=== PATIENT | female | born 1950 | race Caucasian/White ===

== ENCOUNTER → 2018-01-12 10:45 | Outpatient (CLI) | payer OTHER, SELFPAY ==
[2018-01-12 12:58] LABS: T4 Free Direct 0.87 ng/dL (0.76-1.46)
[2018-01-12 16:53] LABS: T3 Uptake 33 % (30-39); Thyroid Stim Hormone (TSH) 5.53 uIU/mL (0.358-3.74)
== END ==
PROVIDERS: Family Provider Family Medicine; PCP Family Medicine; Visit Provider Family Medicine
DX: E03.9 Hypothyroidism, unspecified (principal)
CPT/HCPCS: 36415; 83970; 84439; 84443; 84479; 84481

== ENCOUNTER → 2019-02-16 11:24 | Outpatient (CLI) | payer MEDICARE, SELFPAY ==
[2019-02-16 14:31] LABS: Anion Gap 8 (5-15); BUN 15 mg/dL (7-18); BUN/Creat Ratio 16.7 RATIO (10-20); Calcium,Total 9.5 mg/dL (8.5-10.1); Chloride 106 mmol/L (98-107); Cholesterol 235 mg/dL (200); EST Glomerular Filtration Rate 66 mL/min (>60); Est Glom Filt Rate - Afr Amer 80 mL/min (>60); Glucose 75 mg/dL (74-106); High Density Lipoprotein 57 mg/dL; Sodium Level 142 mmol/L (136-145); Thyroid Stim Hormone (TSH) 5.85 uIU/mL (0.358-3.74); Triglycerides 170 mg/dL; Very Low Density Lipoprotein 34 mg/dL (5-40)
== END ==
PROVIDERS: Family Provider Family Medicine; PCP Family Medicine; Referring Provider Family Medicine; Visit Provider Family Medicine
DX: I10 Essential (primary) hypertension (principal); E03.9 Hypothyroidism, unspecified
CPT/HCPCS: 36415; 80048; 80061; 84443

== ENCOUNTER → 2019-07-31 15:25 | Outpatient (CLI) | payer MEDICARE, SELFPAY ==
[2019-07-31 18:29] LABS: T4 Free Direct 2.07 ng/dL (0.76-1.46); Thyroid Stim Hormone (TSH) < 0.01 uIU/mL (0.358-3.74)
== END ==
PROVIDERS: Family Provider Family Medicine; PCP Family Medicine; Visit Provider Family Medicine
DX: E03.9 Hypothyroidism, unspecified (principal)
CPT/HCPCS: 36415; 84439; 84443

== ENCOUNTER → 2019-08-08 12:54 | Outpatient (CLI) | payer MEDICARE, SELFPAY ==
--- NOTE | 2019-08-08 13:01 | BD_ITS ---
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 COMPARISON: None. FINDINGS: Lumbar Spine (L1-L4): g/cm2 (1.020) / T-score (-1.5) / Z-score (0.1) Findings are suggestive of osteopenia with a low fracture risk. Left Femur Total: g/cm2 (0.897) / T-score (-0.9) / Z-score (0.5) Left Femoral Neck: g/cm2 (0.798) / T-score (-1.7) / Z-score (-0.1) Right Femur Total: g/cm2 (0.836) / T-score (-1.4) / Z-score (0.0) Right Femoral Neck: g/cm2 (0.734) / T-score (-2.2) / Z-score (-0.6) BD/Dexa Bone Density Study IMPRESSION: The patient is considered osteopenic as outlined below according to World [employer] Organization (WHO) criteria with a high fracture risk. Reference Information: The T-score is the number of standard deviations above or below the standard which is normal for young adults at their peak bone mineral density. The World Health Organization (WHO) interprets the T-scores as follows: Above -1 Normal bone density Between -1 and -2.5 Osteopenia Equal to / or below -2.5 Osteoporosis As a practical clinical guideline, osteopenia may be graded as follows: Mild -1 through -1.5 Moderate -1.6 through -2.0 Severe -2.1 through -2.4 The Z-score is the number of standard deviations above or below age-matched controls. A Z-score of less than -1.5 would be considered abnormal. References: 1. NIH Osteoporosis and Related Bone Diseases http://www.osteo.org 2. International Society for Clinical Densitometry http://www.iscd.org 3. National Osteoporosis Foundation http://www.nof.org Electronically Signed: Teto Zeng, at 15:22 EST , Service support ,
== END ==
PROVIDERS: Family Provider Family Medicine; PCP Family Medicine; Referring Provider Family Medicine; Visit Provider Family Medicine
DX: Z00.00 Encounter for general adult medical examination without abnormal findings (principal); Z78.0 Asymptomatic menopausal state
CPT/HCPCS: 77080

== ENCOUNTER → 2019-10-03 14:25 | Outpatient (CLI) | payer MEDICARE, SELFPAY ==
[2019-10-03 17:57] LABS: Vitamin D,25 Hydroxy 63.5 ng/mL
[2019-10-03 18:10] LABS: T4 Free Direct 2.06 ng/dL (0.76-1.46); Thyroid Stim Hormone (TSH) < 0.01 uIU/mL (0.358-3.74)
== END ==
PROVIDERS: PCP Family Medicine; Referring Provider Family Medicine; Visit Provider Family Medicine
DX: E55.9 Vitamin D deficiency, unspecified (principal); E03.9 Hypothyroidism, unspecified
CPT/HCPCS: 36415; 82306; 84439; 84443

== ENCOUNTER → 2019-11-15 14:16 | Outpatient (CLI) | payer MEDICARE, SELFPAY ==
[2019-11-15 16:06] LABS: T4 Free Direct 1.04 ng/dL (0.76-1.46); Thyroid Stim Hormone (TSH) 0.03 uIU/mL (0.358-3.74)
[2019-11-15 23:32] LABS: Vitamin D,25 Hydroxy 48.5 ng/mL
[2019-11-18 00:54] LABS: Anti-Thyroglobulin AB < 1.0 IU/mL (0.0-0.9)
== END ==
PROVIDERS: PCP Family Medicine; Referring Provider Family Medicine; Visit Provider Family Medicine
DX: E03.9 Hypothyroidism, unspecified (principal); E55.9 Vitamin D deficiency, unspecified
CPT/HCPCS: 36415; 82306; 84432; 84439; 84443; 86800

== ENCOUNTER → 2020-01-24 14:08 | Outpatient (CLI) | payer MEDICARE, SELFPAY ==
[2020-01-24 16:17] LABS: Free T3 2.2 pg/mL (2.18-3.98); T4 Free Direct 0.94 ng/dL (0.76-1.46)
[2020-01-27 07:57] LABS: Anti-Thyroglobulin AB < 1.0 IU/mL (0.0-0.9); Thyroglobulin, Serum Qt. 14.6 ng/mL (1.5-38.5)
== END ==
PROVIDERS: PCP Family Medicine; Referring Provider Family Medicine; Visit Provider Family Medicine
DX: E03.9 Hypothyroidism, unspecified (principal)
CPT/HCPCS: 36415; 84432; 84439; 84443; 84481; 86800

== ENCOUNTER → 2020-09-20 09:58 | Outpatient (CLI) | payer MEDICARE, SELFPAY ==
[2020-09-17 14:02] VITALS: BMI 29.3
[2020-09-20 13:40] LABS: ALB/GLOB Ratio 1.3 RATIO (0.9-2.4); AST(SGOT) 20 U/L (15-37); Alanine Aminotransfer ALT/SGPT 27 U/L (13-56); Albumin, Serum 4.2 g/dL (3.2-5.0); Alkaline Phosphatase 71 U/L (45-117); Anion Gap 7 (5-15); BUN 19 mg/dL (7-18); BUN/Creat Ratio 21.2 RATIO (10-20); Calcium,Total 9.3 mg/dL (8.5-10.1); Chloride 108 mmol/L (98-107); Cholesterol 212 mg/dL (200); EST Glomerular Filtration Rate 66 mL/min (>60); Est Glom Filt Rate - Afr Amer 80 mL/min (>60); Free T3 2.5 pg/mL (2.18-3.98); Globulin 3.3 g/dL (2.2-4.2); Glucose 81 mg/dL (74-106); High Density Lipoprotein 67 mg/dL; Potassium 4.1 mmol/L (3.5-5.1); Protein, Total 7.5 g/dL (6.4-8.2); Sodium Level 143 mmol/L (136-145); T4 Free Direct 0.91 ng/dL (0.76-1.46); Triglycerides 123 mg/dL; Very Low Density Lipoprotein 25 mg/dL (5-40)
[2020-09-20 14:34] LABS: Vitamin D,25 Hydroxy 38.3 ng/mL
== END ==
PROVIDERS: PCP Family Medicine; Referring Provider Family Medicine; Visit Provider Family Medicine
DX: E78.00 Pure hypercholesterolemia, unspecified (principal); M85.80 Other specified disorders of bone density and structure, unspecified site; E03.9 Hypothyroidism, unspecified
CPT/HCPCS: 80053; 80061; 82306; 84439; 84443; 84481

== ENCOUNTER → 2021-02-20 15:49 | Outpatient (CLI) | payer MEDICARE, SELFPAY ==
[2021-02-20 18:32] LABS: T4 Free Direct 0.95 ng/dL (0.76-1.46)
== END ==
PROVIDERS: PCP Family Medicine; Referring Provider Family Medicine; Visit Provider Family Medicine
DX: E03.9 Hypothyroidism, unspecified (principal)
CPT/HCPCS: 36415; 84439; 84443

== ENCOUNTER → 2021-07-21 15:07 | Outpatient (CLI) | payer MEDICARE, SELFPAY ==
[2021-07-21 18:20] LABS: T4 Free Direct 0.98 ng/dL (0.76-1.46); Thyroid Stim Hormone (TSH) 3.66 uIU/mL (0.358-3.74)
== END ==
PROVIDERS: PCP Family Medicine; Visit Provider Family Medicine
DX: E03.9 Hypothyroidism, unspecified (principal)
CPT/HCPCS: 36415; 84439; 84443

== ENCOUNTER → 2022-01-22 | Outpatient (CLI) | payer MEDICARE, SELFPAY ==
[2022-01-22 13:01] LABS: Microalbumin,Random Urine < 5.0 mg/L (NO RANGE EST.)
[2022-01-22 13:07] LABS: Vitamin D,25 Hydroxy 47.7 ng/mL
[2022-01-22 13:23] LABS: ALB/GLOB Ratio 1.2 RATIO (0.9-2.4); AST(SGOT) 19 U/L (15-37); Alanine Aminotransfer ALT/SGPT 21 U/L (13-56); Albumin, Serum 4.4 g/dL (3.2-5.0); Alkaline Phosphatase 74 U/L (45-117); Anion Gap 9 (5-15); BUN 19 mg/dL (7-18); Calcium,Total 9.7 mg/dL (8.5-10.1); Chloride 105 mmol/L (98-107); Cholesterol 246 mg/dL (200); Creatinine, Serum 0.86 mg/dL (0.55-1.02); EST Glomerular Filtration Rate 69 mL/min (>60); Est Glom Filt Rate - Afr Amer 83 mL/min (>60); Globulin 3.6 g/dL (2.2-4.2); Glucose 88 mg/dL (74-106); High Density Lipoprotein 64 mg/dL; Sodium Level 141 mmol/L (136-145); T4 Free Direct 1.01 ng/dL (0.76-1.46); Thyroid Stim Hormone (TSH) 3.82 uIU/mL (0.358-3.74); Triglycerides 178 mg/dL; Very Low Density Lipoprotein 36 mg/dL (5-40)
== END | disposition home or self-care (01) ==
LOC: MFPLAB 10:26
PROVIDERS: PCP Family Medicine; Visit Provider Family Medicine
DX: I10 Essential (primary) hypertension (principal); E78.00 Pure hypercholesterolemia, unspecified; E03.9 Hypothyroidism, unspecified; M85.80 Other specified disorders of bone density and structure, unspecified site
CPT/HCPCS: 36415; 80053; 80061; 82043; 82306; 84439; 84443

== ENCOUNTER → 2022-10-06 | Outpatient (CLI) | payer MEDICARE, SELFPAY ==
--- NOTE | 2022-10-06 12:31 | BD_ITS ---
STUDY: DUAL ENERGY X-RAY ABSORPTIOMETRY / DXA REASON FOR EXAM: Female, 72 years old. [id number] TECHNIQUE: Bone Mineral Density (BMD) measurements of lumbar spine and bilateral hips were obtained. COMPARISON: Comparison is made with prior study dated August 08, 2019. FINDINGS: Lumbar Spine (L1-L4): g/cm2 (0.857) / T-score (-1.5) / Z-score (0.7) Findings are suggestive of osteopenia with a low fracture risk. Left Femur Total: g/cm2 (0.802) / T-score (-1.1) / Z-score (0.4) Left Femoral Neck: g/cm2 (0.674) / T-score (-1.6) / Z-score (0.3) Right Femur Total: g/cm2 (0.730) / T-score (-1.7) / Z-score (-0.2) Right Femoral Neck: g/cm2 (0.621) / T-score (-2.0) / Z-score (-0.2) The T-Scores on the most recent prior examination were: Lumbar Spine (L1-L4): There has been improvement of bone density since the previous examination. Left Femur Total: which represents a worsening of 3.7%. Right Femur Total: which represents a worsening of 5.8%. BD/Dexa Bone Density Study IMPRESSION: The patient is considered osteopenic as outlined below according to World Raymond Organization (WHO) criteria with a moderate fracture risk. There has been worsening of bone density since the previous examination. Reference Information: The T-score is the number of standard deviations above or below the standard which is normal for young adults at their peak bone mineral density. The World Health Organization (WHO) interprets the T-scores as follows: Above -1 Normal bone density Between -1 and -2.5 Osteopenia Equal to / or below -2.5 Osteoporosis As a practical clinical guideline, osteopenia may be graded as follows: Mild -1 through -1.5 Moderate -1.6 through -2.0 Severe -2.1 through -2.4 The Z-score is the number of standard deviations above or below age-matched controls. A Z-score of less than -1.5 would be considered abnormal. References: 1. NIH Osteoporosis and Related Bone Diseases www osteo.org 2. International Society for Clinical Densitometry www iscd.org 3. National Osteoporosis Foundation www nof.org Electronically Signed: Teto Zeng MD at 10:52 EDT ,
== END | disposition home or self-care (01) ==
LOC: OPBD 12:22
PROVIDERS: PCP Family Medicine; Referring Provider Family Medicine; Visit Provider Family Medicine
DX: Z78.0 Asymptomatic menopausal state (principal)
CPT/HCPCS: 77080

== ENCOUNTER → 2023-03-23 | Outpatient (CLI) | payer MEDICARE, SELFPAY | END | disposition home or self-care (01) | LOC: MFPLAB 12:01 | PROVIDERS: PCP Family Medicine; Visit Provider Family Medicine | DX: E55.9 Vitamin D deficiency, unspecified (principal) | CPT/HCPCS: 36415; 82306 ==

== ENCOUNTER → 2023-05-10 | Outpatient (CLI) | payer MEDICARE, SELFPAY ==
--- NOTE | 2023-05-10 11:15 | RAD_ITS ---
STUDY: X-RAY - RIGHT KNEE REASON FOR EXAM: Female, 72 years old. Pain. TECHNIQUE: 4 views of the right knee. COMPARISON: None. FINDINGS: Normal visualized distal femur. Normal visualized proximal tibia and fibula. Normal proximal tibiofibular articulation. There is no demonstrated fracture. There is severe degenerative arthrosis of the medial femorotibial compartment with severe joint space narrowing. There is mild degenerative arthrosis of the lateral femorotibial compartment. There is mild degenerative arthrosis of the patellofemoral articulation. There is a moderate volume joint effusion. The soft tissue structures are unremarkable. RAD/Knee 4 or More Views IMPRESSION: Tricompartment degenerative arthrosis, most severe in the medial femorotibial compartment. Moderate joint effusion. No demonstrated fracture. Electronically Signed: Franco Arriola MD at 15:28 EDT ,
== END | disposition home or self-care (01) ==
PROVIDERS: PCP Family Medicine; Referring Provider Family Medicine; Visit Provider Family Medicine
DX: M25.561 Pain in right knee (principal)
CPT/HCPCS: 73564

== ENCOUNTER → 2024-04-11 | Outpatient (CLI) | payer MEDICARE, SELFPAY ==
[2024-04-11 15:41] LABS: Vitamin D,25 Hydroxy 50.8 ng/mL
[2024-04-11 15:58] LABS: ALB/GLOB Ratio 1.1 RATIO (0.9-2.4); AST(SGOT) 17 U/L (15-37); Alanine Aminotransfer ALT/SGPT 20 U/L (13-56); Alkaline Phosphatase 66 U/L (45-117); Anion Gap 6 (5-15); BUN 18 mg/dL (7-18); BUN/Creat Ratio 20.3 RATIO (10-20); Chloride 105 mmol/L (98-107); Cholesterol 244 mg/dL (200); Creatinine, Serum 0.88 mg/dL (0.55-1.02); EST Glomerular Filtration Rate 67 mL/min (>60); Est Glom Filt Rate - Afr Amer 81 mL/min (>60); Globulin 3.6 g/dL (2.2-4.2); Glucose 86 mg/dL (74-106); High Density Lipoprotein 66 mg/dL; Potassium 4.2 mmol/L (3.5-5.1); Protein, Total 7.6 g/dL (6.4-8.2); Sodium Level 140 mmol/L (136-145); T4 Free Direct 1.13 ng/dL (0.76-1.46); Triglycerides 196 mg/dL; Very Low Density Lipoprotein 39 mg/dL (5-40)
== END | disposition home or self-care (01) ==
LOC: MFPLAB 11:03
PROVIDERS: PCP Family Medicine; Visit Provider Family Medicine
DX: I10 Essential (primary) hypertension (principal); E03.9 Hypothyroidism, unspecified; M85.80 Other specified disorders of bone density and structure, unspecified site
CPT/HCPCS: 36415; 80053; 80061; 82306; 84439; 84443

== ENCOUNTER → 2024-09-21 | Outpatient (CLI) | payer MEDICARE, SELFPAY ==
[2024-09-21 13:58] LABS: Anion Gap 12 (5-15); BUN 20 mg/dL (4-19); BUN/Creat Ratio 24.6 RATIO (10-20); Calcium 10.2 mg/dL (7.6-11.0); Carbon Dioxide 26.9 mmol/L (22.0-29.0); Chloride 100 mmol/L (96-108); Creatinine, Serum 0.8 mg/dL (0.6-1.0); EST Glomerular Filtration Rate 78 (>60); Glucose 84 mg/dL (70-99); Potassium 3.6 mmol/L (3.3-5.1); Sodium Level 139 mmol/L (133-145)
[2024-09-21 20:52] LABS: Cholesterol 241 mg/dL (<=200); High Density Lipoprotein 67 mg/dL; Low Density Lipoprotein Calc. 145 mg/dL; Triglycerides 148 mg/dL; Very Low Density Lipoprotein 30 mg/dL (5-40); cholesterol:hdl ratio screen 3.61
== END | disposition home or self-care (01) ==
PROVIDERS: PCP Family Medicine; Referring Provider Family Medicine; Visit Provider Family Medicine
DX: Z00.00 Encounter for general adult medical examination without abnormal findings (principal); Z13.6 Encounter for screening for cardiovascular disorders; E03.9 Hypothyroidism, unspecified
CPT/HCPCS: 36415; 80048; 80061; 84443

== ENCOUNTER → 2025-05-02 | Outpatient (CLI) | payer MEDICARE, SELFPAY ==
--- NOTE | 2025-05-02 14:42 | US_ITS ---
PROCEDURE: PELVIC W/ TRANSVAGINAL REASON FOR EXAM: CYSTOCELE TECHNIQUE: Procedure Code: [id number] Modality: US Procedure: PELVIC W/ TRANSVAGINAL COMPARISON: None FINDINGS: Patient is postmenopausal. Measurements: Uterus: 7.1 cm x 5.3 cm x 2.2 cm with a volume of 44.7 mL Endometrial Thickness: 5 mm. This is thickened for the postmenopausal state. Small amount of fluid is seen within the endometrium. There are 2, small uterine fibroids. Right Ovary: 1.8 cm x 2.1 cm x 1.2 cm with a volume of 4.4 mL. Left Ovary: Not visualized. TRANSABDOMINAL: Uterus: Fibroid uterus. Nabothian cysts. Endometrium: Endometrium is thickened measuring 5 mm. Right ovary: Normal size and echotexture. Left ovary: Not visualized. Other: No large pelvic mass identified. Transvaginal sonography was performed to better visualize the endometrium. TRANSVAGINAL: Uterus: Anteverted. Fibroid uterus. Endometrium: The endometrium is thickened measuring 5 mm. Fluid is seen within the endometrium. Right ovary: Normal size and echotexture. Left ovary: Not visualized. Other adnexal findings: None. Cul-de-sac: No free intraperitoneal fluid identified. Tenderness: No tenderness US/Pelvic w/ Transvaginal IMPRESSION: Endometrial thickening. Fibroid uterus. Reading Location: [place] [id number]
== END | disposition home or self-care (01) ==
PROVIDERS: PCP Family Medicine; Referring Provider Obstetrics & Gynecology; Visit Provider Obstetrics & Gynecology
DX: N81.2 Incomplete uterovaginal prolapse (principal)
CPT/HCPCS: 76830; 76856

== ENCOUNTER → 2025-05-09 | Outpatient (CLI) | payer MEDICARE, SELFPAY ==
--- NOTE | 2025-05-09 | EMB_PTH ---
PATIENT: MERLYN LOWE LOC: [facility] U#:[id number] AGE/SX: 74/F ROOM: RE05/09/[address]: VIBHA Calderon : 1950 BED: DIS: 05/09/2025 SPEC #: [id number] RECD: 05/09/25 15:16 STATUS: HUMPHREY REMarlo #: [id number] KAREN: 05/09/25 00:[address]: Carli Wayne NP DEPT: SURGICAL PATHOLOGY RECD BY: Jak Kelsey ENTERED: 05/09/25 15:17 SP TYPE: ENDOM BX/C CHANTAL DR: Dr. Luke Navarro MD Tissues: A - Endometrium, NOS Procedures: Surgery Specimen Level IV HEADER OPERATION: Endometrial biopsy PRE-OP DIAGNOSIS: Thickened endometrium TISSUE SUBMITTED: A- Endometrial tissue MICROSCOPIC DIAGNOSIS A. Endometrium, biopsy: * Strips of benign columnar epithelium consistent with endometrial and/or endocervical origin. * Atrophic squamous epithelium. * See note. Note: No endometrial stroma is observed in this section. The findings are consistent with atrophy. The pre-op diagnosis of "thickened endometrium" is noted. Clinical correlation is necessary to assess the adequacy of this sampling. MICROSCOPIC DESCRIPTION Slides are reviewed. GROSS DESCRIPTION A. Received in formalin labeled the patient's name and date of are scant flecks of free-floating tissue within the container which are entirely submitted in 1 cassette for cellblock preparation. CT 05/09/2025 CPT:01059
== END | disposition home or self-care (01) ==
LOC: LABSPEC 15:06
PROVIDERS: PCP Family Medicine; Visit Provider Nurse Practitioner Women's Health
DX: N85.8 Other specified noninflammatory disorders of uterus (principal)
CPT/HCPCS: 88305

== ENCOUNTER 2025-05-25 07:52 | Inpatient (IN) | payer MEDICARE, SELFPAY ==
[2025-05-21 09:45] LABS: Hematocrit 41.0 % (37-47); Hemoglobin 13.5 g/dL (12.0-15.0); Mean Corp Hgb Conc 32.9 g/dL (32-36); Mean Corpuscular Volume 93.6 fL (81-99); Mean Platelet Vol. 10.5 fl (6.2-12.0); Platelet Count 330 K/mm3 (150-450); RBC Distribution Width CV 13.7 % (11.6-14.6); RBC Distribution Width SD 46.9 fl (35.1-43.9); Red Blood Count 4.38 M/mm3 (4.2-5.4); White Blood Count 7.8 K/mm3 (4.4-11.0)
[2025-05-21 10:24] LABS: AST(SGOT) 20 U/L (<=31); Alanine Aminotransfer ALT/SGPT 19 U/L (<=34); Albumin, Serum 4.6 g/dL (3.4-4.8); Alkaline Phosphatase 66 U/L (35-104); Anion Gap 10 (5-15); BUN 18 mg/dL (4-19); BUN/Creat Ratio 22.4 RATIO (10-20); Calcium,Total 10.1 mg/dL (7.6-11.0); Carbon Dioxide 30.0 mmol/L (21.0-32.0); Chloride 103 mmol/L (98-108); Globulin 2.6 g/dL (2.2-4.2); Glucose 82 mg/dL (70-99); Potassium 4.2 mmol/L (3.3-5.1)
[2025-05-21 10:30] LABS: Magnesium 2.1 mg/dL (1.5-2.2)
--- NOTE | 2025-05-21 16:10 | PAT.ANE_ITS ---
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 When Was Last Pacemaker Check QUESTION #4 FULL TEXT: You/Your Family Experience fever (hyperthermia) with Anesthesia Last Oral Intake Last Oral intake: Last Oral Intake NPO since Meds taken in AM with sips of water? 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 Female Yes 05/14/25 13:27 HX of Motion Sickness No 05/14/25 13:27 HX of N/V After Surgery No 05/14/25 13:27 Non-Smoker Yes 05/14/25 13:27 Duration of Surgery greater Yes 05/14/25 13:27 than 60 minutes Number of Risk Factors 3 05/14/25 13:27 PONV Score Moderate Risk 05/14/25 13:27 Height & Weight Height & Weight: Anesthesia: Height & Weight Height 5 ft 1 in 04/26/25 13:08 Respiratory Assessment Respiratory Assessment - printing table worker: Respiratory Tract Infection Hx - printing table worker Hx Respiratory Tract Infection No 05/14/25 13:27 STOP Sleep Apnea STOP Sleep Apnea - printing table worker: STOP Sleep Apnea - printing table worker Hx Hypertension Yes 05/14/25 13:27 Hx Sleep Apnea No 05/14/25 13:27 CPAP BIPAP Do you snore loudly (louder Yes 05/14/25 13:27 than talking or can be heard Do you often feel tired/ No 05/14/25 13:27 fatigued/ sleepy during daytime? Has anyone observed you stop No 05/14/25 13:27 breathing during sleep? STOP Results Positive 05/14/25 13:27 QUESTION #5 FULL TEXT : Do you snore loudly (louder than talking or can be heard through closed doors)? 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 Specify any problems Hx of Preganancy in last 3 N/A 05/14/25 13:27 Months Nurse Filling Out Transfusion BLU 05/14/25 13:27 & Questions: Date: 05/14/25 05/14/25 13:27 Time: 13:30 05/14/25 13:27 Patient unable to answer at this time (ie. 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 worker: /Reproductive Hx- printing table worker Hx Now Gestational Age (in weeks): EDC: Hx Hx Para Hx Section SAB No 05/14/25 13:27 [facility] Medical History Wears glasses Heartburn Former smoker History of edema Constipation Stress incontinence Nocturia High cholesterol Hypertension Arthritis Allergies Pure hypercholesterolemia Vitamin D deficiency Osteopenia Hypothyroid Home Medications ?Medication ?Instructions ?Recorded ?Last Taken ?Type amlodipine 10 mg tablet (Norvasc) 10 mg PO DAILY 08/22 Unknown History cholecalciferol (vitamin D3) 125 125 mcg PO DAILY 07/27 03/15 Unknown History mcg (5,000 unit) capsule pravastatin 40 mg tablet 40 mg PO DAILY 08/22/20 Unkn own History ascorbate calcium (vitamin C) 500 500 mg PO DAILY 08/27 10/13 Unknown History mg tablet hydrochlorothiazide 12.5 mg tablet 25 mg PO DAILY SWEEvelyn CLEMENS 09/17/20 Unknown History levothyroxine 25 mcg capsule 50 mcg PO DAILY 01/25/23 Unknown History estradiol 0.01% (0.1 mg/gram) See Rx Instructions vagi nal 03/06/25 Unknown Rx vaginal cream .COMPLEX #42.5 grams calcium carbonate (Calcium 600) 600 mg PO QDAY 5 Unknown History Vitamin E 180 mg PO DAILY 04/26/25 Unk nown History coenzyme Q10 10 mg capsule (Co 10 mg PO QDAY 04/26/25 Unknown History Q-10) folate 800 mcg PO DAILY 04/26/25 Un known History Allergy/AdvReac Type Severity Reaction Status Date / Time Penicillins AdvReac Mild CAUSES Verified 05/16/25 08:36 YEAST INFECTIONS Family History Grandfather Tuberculosis Grandmother Cancer uterine Grandfather CVA (cerebral vascular accident) Grandmother Diabetes Enlarged heart Father Hypertension Heart disease TIA (transient ischemic attack) Mother Breast cancer Other Chronic kidney disease Surgical History History of tonsillectomy 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 Normal sinus rhythm. Left anterior fascicular block. Recommendation Anesthesia Recommendation Anesthesia recommendation: OPTIMIZED for anesthesia
[2025-05-25] VITALS (19 sets, daily range): BP systolic 95–131; BP diastolic 51–67; PULSE 56–77; RESP 16–18; TEMP 36.1–37.1; O2SAT 91–100; BMI 29.9
--- OUTSIDE RECORDS SUMMARY | 2025-05-25 05:29 | XMS RPT_ITS | CCD ---
Author Organization [facility] CliniSyri Care Team Providers Care Bone Tender Name Role Phone Dr. Jairo Navarro Primary Care Provider Dr. Jairo Navarro Referring Provider Rosana CANE FLUME WATCHER, CANE FLUME WATCHER-C Carli Attending Provider Melanie SHIELDS, Dr. Butler Primary Care Provider Melanie SHIELDS, Dr. Butler Attending Provider Melanie SHIELDS, Dr. Butler Referring Provider Melanie SHIELDS, Dr. Butler Primary Care Provider Melanie SHIELDS, Dr. Butler Referring Provider Rosana CANE FLUME WATCHER-CCarli Attending Provider [phone] Melanie SHIELDS, Dr. Butler Primary Care Physicia n Rosana CANE FLUME WATCHER-C, Carli Attending Physician [phone] Lin SHIELDS, Dr. Pagan Attending Physician Herrera SHIELDS, Dr. Osborne Attending Physician Herrera SHIELDS, Dr. Osborne Referring Provider Luke Navarro Primary Care Unavailable Luke Navarro Attending Unavailable Luke Navarro Referring Unavailable Rosana CANE FLUME WATCHERCarli Attending Unavailable Luke Navarro Primary Care Unavailable Luke Navarro Primary Care Unavailable India Silverman Attending Unavailable India Silverman Referring Unavailable Luke Navarro Primary Care Unavailable Latasha Ceballos Consulting Unavailable India Silverman Attending Unavailable India Silverman Referring Unavailable Luke Navarro Primary Care Unavailable Rosana Carli THIBODEAUX Attending Unavailable Javed Navarrotuan Referring Unavailable [facility] Primary [facility] Unavailable Latasha Ceballos Attending Unavailable [facility] Referring Unavailable [facility] Primary [facility] Unavailable India Silverman Attending Unavailable [facility] Referring Unavailable Latasha Ceballos Attending Unavailable [facility] Primary Care Unavailable [facility] Referring Unavailable Latasha Ceballos Attending Unavailable [facility] Unavailable [facility] Referring Unavailable [facility] Primary [facility] Unavailable Carli Wayne NP Attending Unavailable [facility] Referring Unavailable Ltaasha Ceballos Attending Unavailable [facility] Referring Unavailable [facility] Unavailable Allergies Allergy Classification Reported Allergen(s) Allergy Type Date of Onset Reaction(s) Facility (1 source) Penicillins Propensity to adverse reactions 5 CAUSES YEAST INFECTIONS [facility] (1 source) Penicillins Drug allergy (disorder) 5 [facility] Repository Medications Current Medications Medication Drug Class(es) Dates Sig (Normalized) Sig (Original) amLODIPine 10 mg oral tablet (11 sources) Dihydropyridine Calcium Channel Katelin Start: 08-22-2020 take 1 tablet by mouth once daily Amlodipine (Norvasc) 10 mg tablet Active 10 mg PO DAILY August 22, 2020 1:00am Complies with drug therapy calcium ascorbate 500 mg oral tablet (11 sources) Start: 09-17-2020 take 1 tablet by mouth once daily Ascorbate Calcium (Vitamin C) 500 mg tablet Active 500 mg PO DAILY September 17, 2020 1:00am Complies with drug therapy calcium carbonate 1500 mg oral tablet (5 sources) Start: 04-13-2025 take 1 tablet by mouth once daily Calcium Carbonate (Calcium 600) 600 mg calcium (1,500 mg) tablet Active 600 mg PO daily April 13, 2025 12:00am Complies with drug therapy cholecalciferol 0.125 mg oral capsule (11 sources) Vitamin D Start: 08-22-2020 take 1 capsule by mouth once daily Cholecalciferol (Vitamin D3) 125 mcg (5,000 unit) capsule Active 125 ug PO DAILY August 22, 2020 1:00am Complies with drug therapy folate (2 sources) Start: 04-26-2025 take 800 ug by mouth once daily folate Active 800 ug PO DAILY April 26, 2025 12:00am Complies with drug therapy Start: 04-26-2025 hydroCHLOROthiazide 12.5 mg oral tablet (20 sources) Thiazide Diuretic Start: 09-17-2020 take 2 tablets by mouth once daily Hydrochlorothiazide 12.5 mg tablet Active 25 mg PO DAILY September 17, 2020 3:00pm SWELLING Complies with drug therapy Start: 08-22-2020 End: 09-17-2020 take 1 tablet by mouth once daily Hydrochlorothiazide 12.5 mg tablet Discontinued 12.5 mg PO DAILY August 22, 2020 1:00am September 17, 2020 3:01pm levothyroxine sodium 0.025 mg oral capsule (9 sources) l-Thyroxine Start: 01-25-2023 take 2 capsules by mouth once daily Levothyroxine 25 mcg capsule Active 50 ug PO DAILY January 25, 2023 12:00am Complies with drug therapy Start: 01-25-2023 take 50 ug by mouth once daily Levothyroxine Active 50 MCG PO DAILY January 25, 2023 12:00am pravastatin sodium 40 mg oral tablet (11 sources) HMG-CoA Reductase Inhibitor Start: 08-22-2020 take 1 tablet by mouth once daily Pravastatin 40 mg tablet Active 40 mg PO DAILY August 22, 2020 1:00am Complies with drug therapy ubidecarenone 10 mg oral capsule (2 sources) Start: 04-26-2025 Coenzyme Q10 ( Co Q-10) 10 mg capsule Active 10 mg PO daily April 26, 2025 12:00am Complies with drug therapy vitamin e 180 mg oral tablet (2 sources) Start: 04-26-2025 take 180 mg by mouth once daily Vitamin E Active 180 mg PO DAILY April 26, 2025 12:00am Complies with drug therapy Start: 04-26-2025 Completed/Discontinued Medications Medication Drug Class(es) Dates Sig (Normalized) Sig (Original) cannabidiol 100 mg/ml oral solution (11 sources) Start: 08-22-2020 End: 09-17-2020 Cannabidiol 100 mg/mL solution Discontinued PO August 22, 2020 1:00am September 17, 2020 3:00pm Start: 08-22-2020 End: 09-17-2020 Cannabidiol Discontinued PO August 22, 2020 1:00am September 17, 2020 3:00pm estradiol 0.1 mg/ml vaginal cream (20 sources) Estrogen Start: 01-25-2023 End: 03-06-2025 Estradiol 0.01 % (0.1 mg/gram) cream Discontinued 0 VAGINAL .COMPLEX 42.5 2 March 02, 2024 1:16pm March 06, 2025 11:36am small amount as directed vaginal three times a week; Start: 01-25-2023 Estradiol Acti ve 0 VAGINAL .COMPLEX 42.5 January 25, 2023 1:31pm small amount as directed vaginal three times a week; Start: 09-17-2020 End: 01-25-2023 Estradiol 0.01 % (0.1 mg/gra m) cream Discontinued 0 VAGINAL .COMPLEX 42.5 2 September 17, 2020 1:00am January 25, 2023 1:32pm small amount as directed vaginal every other day X 4 weeks then twice a week; Start: 09-17-2020 End: 01-25-2023 Estradiol Discontinued 0 VAG INAL .COMPLEX 42.5 September 17, 2020 1:00am January 25, 2023 1:32pm small amount as directed vaginal every other day X 4 weeks then twice a week; Problems Problem Classification Problem Date Documented Da te Episodic/Chronic Genitourinary symptoms and ill-defined conditions (13 sources) Genuine stress incontinence; Translations: [Stress incontinence (female) (male)] Onset: 05-16-2025 04-23-2025 Chronic Genitourinary symptoms and ill-defined conditions (18 sources) Nocturia; Translations: [Nocturia] Onset: 04-23-2025 04-13-2025 Episodic Menopausal disorders (20 sources) Atrophic vaginitis; Translations: [Postmenopausal atrophic vaginitis] Onset: 04-13-2025 09-17-2020 Chronic Comment on above: estradiol cream 3 ni ghts a week Other diseases of bladder and urethra (20 sources) Urethral caruncle; Translations: [Urethral caruncle] 09-17-2020 Episodic Other diseases of bladder and urethra (3 sources) Urethral caruncle; Translations: [Urethral caruncle] Onset: 04-13-2025 01-25-2023 Episodic Other gastrointestinal disorders (12 sources) Constipation; Translations: [Constipation, unspecified] 04-23-2025 Episodic Other screening for suspected conditions (not mental disorders or infectious disease) (1 source) Abnormal findings on diagnostic imaging of other specified body structures; Translations: [Abnormal findings on diagnostic imaging of other specified body structures] Onset: 05-21-2025 Chronic Prolapse of female genital organs (20 sources) Cystocele co-occurrent with incomplete uterovaginal prolapse; Translations: [Incomplete uterovaginal prolapse] Onset: 05-21-2025 09-17-2020 Chronic Comment on above: stable worsening. at introi tus:plan surgical intervention SM and HW Results Test Name Value Interpretation Reference Range Facility CBC-Complete Blood Cnt No Di ffon 05-21-2025 Erythrocyte distribution width (RBC) [Ratio] 13.7 % Normal 11.6-14.6 [facility] Comment on above: Performed By: #### B TSPAT, L100.0500, L500.4050 #### [facility] [address] [place], [address] Hematocrit (Bld) [Volume fraction] 41.0 % Normal 37-47 [facility] Comment on above: Performed By: #### B TSPAT, L100.0500, L500.4050 #### [facility] [address] [place], [address] Hemoglobin (Bld) [Mass/Vol] 13.5 g/dL Normal 12.0-15.0 [facility] Comment on above: Performed By: #### B TSPAT, L100.0500, L500.4050 #### [facility] [address] [place], [address] MCH (RBC) [Entitic mass] 30.8 pg Normal 27.0-32.0 [facility] Comment on above: Performed By: #### B TSPAT, L100.0500, L500.4050 #### [facility] [address] [place], [address] MCHC (RBC) [Mass/Vol] 32.9 g/dL Normal 32-36 [facility] Comment on above: Performed By: #### B TSPAT, L100.0500, L500.4050 #### [facility] [address] [place], [address] MCV (RBC) [Entitic vol] 93.6 fL Normal 81-99 [facility] Comment on above: Performed By: #### B TSPAT, L100.0500, L500.4050 #### [facility] [address] [place], [address] Platelet mean volume (Bld) [Entitic vol] 10.5 fL Normal 6.2-12.0 [facility] Comment on above: Performed By: #### B TSPAT, L100.0500, L500.4050 #### [facility] [address] [place], [address] Platelets (Bld) [#/Vol] 330 10*3/uL Normal 150-450 [facility] Comment on above: Performed By: #### B TSPAT, L100.0500, L500.4050 #### [facility] [address] [place], [address] RBC (Bld) [#/Vol] 4.38 10*6/uL Normal 4.2-5.4 [facility] Comment on above: Performed By: #### B TSPAT, L100.0500, L500.4050 #### [facility] [address] [place], [address] RDW SD 46.9 fl High 35.1-43.9 [facility] Comment on above: Performed By: #### B TSPAT, L100.0500, L500.4050 #### [facility] [address] [place], [address] WBC (Bld) [#/Vol] 7.8 10*3/uL Normal 4.4-11.0 [facility] Comment on above: Performed By: #### B TSPAT, L100.0500, L500.4050 #### [facility] [address] [place], [address] [facility] Albumin [Mass/Vol] 4.6 g/dL Normal 3.4-4.8 [facility] Comment on above: Performed By: #### B TSPAT, L100.0500, L500.4050 #### [facility] [address] [place], [address] Albumin/Globulin [Mass ratio] 1.8 {ratio} Normal 0.9-2.4 [facility] Comment on above: Performed By: #### B TSPAT, L100.0500, L500.4050 #### [facility] [address] [place], [address] ALK PHOS 66 U/L Normal 35-104 [facility] Comment on above: Performed By: #### B TSPAT, L100.0500, L500.4050 #### [facility] [address] [place], [address] ALT [Catalytic activity/Vol] 19 U/L Normal <=34 [facility] Comment on above: Performed By: #### B TSPAT, L100.0500, L500.4050 #### [facility] [address] [place], [address] AST [Catalytic activity/Vol] 20 U/L Normal <=31 [facility] Comment on above: Performed By: #### B TSPAT, L100.0500, L500.4050 #### [facility] [address] [place], [address] Bilirubin [Mass/Vol] 0.58 mg/dL Normal 0.00-1.30 [facility] Comment on above: Performed By: #### B TSPAT, L100.0500, L500.4050 #### [facility] [address] [place], [address] BUN/CRE 22.4 RATIO High 10-20 [facility] Comment on above: Performed By: #### B TSPAT, L100.0500, L500.4050 #### [facility] [address] [place], [address] Calcium [Mass/Vol] 10.1 mg/dL Normal 7.6-11.0 [facility] Comment on above: Performed By: #### B TSPAT, L100.0500, L500.4050 #### [facility] [address] [place], [address] Chloride [Moles/Vol] 103 mmol/L Normal 98-108 [facility] Comment on above: Performed By: #### B TSPAT, L100.0500, L500.4050 #### [facility] [address] [place], [address] CO2 [Moles/Vol] 30.0 mmol/L Normal 21.0-32.0 [facility] Comment on above: Performed By: #### B TSPAT, L100.0500, L500.4050 #### [facility] [address] [place], [address] Creatinine [Mass/Vol] 0.80 mg/dL Normal 0.70-1.20 [facility] Comment on above: Performed By: #### B TSPAT, L100.0500, L500.4050 #### [facility] [address] [place], [address] GAP 10 Normal 5-15 [facility] Comment on above: Performed By: #### B TSPAT, L100.0500, L500.4050 #### [facility] [address] [place], [address] GFR/1.73 sq M.predicted among non-blacks MDRD (S/P/Bld) [Vol rate/Area] 77 mL/min/{1.73_m2} Normal >60 [facility] Comment on above: Result Comment: mL/m in/1.73m2 CKD-EPI Creatinine Equation (2020) Performed By: #### B TSPAT, L100.0500, L500.4050 #### [facility] [address], [address] Globulin (S) [Mass/Vol] 2.6 g/dL Normal 2.2-4.2 [facility] Comment on above: Performed By: #### Viviana TSPAT, L100.0500, L500.4050 #### [facility] [address] [place], [address] Glucose [Mass/Vol] 82 mg/dL Normal 70-99 [facility] Comment on above: Performed By: #### Viviana TSPAT, L100.0500, L500.4050 #### [facility] [address] [place], [address] Potassium [Moles/Vol] 4.2 mmol/L Normal 3.3-5.1 [facility] Comment on above: Performed By: #### Viviana TSPAT, L100.0500, L500.4050 #### [facility] [address] [place], [address] Sodium [Moles/Vol] 143 mmol/L Normal 133-145 [facility] Comment on above: Performed By: #### Viviana TSPAT, L100.0500, L500.4050 #### [facility] [address] [place], [address] T PROT 7.1 g/dL Normal 5.9-8.4 [facility] Comment on above: Performed By: #### Viviana TSPAT, L100.0500, L500.4050 #### [facility] [address], [address] Urea nitrogen [Mass/Vol] 18 mg/dL Normal 4-19 [facility] Comment on above: Performed By: #### B TSPAT, L100.0500, L500.4050 #### [facility] [address] [place], [address] MR/PAT.CHADon 05-21-2025 MR/PAT.CHAD [facility] Medical Records Department [address] [place] [address] PAT - Anesthesia 05/21/25 1610 MR#: [id number] Acct: [id number] Name: MERLYN LOWE Rep #: [id number] : 1950 74 From: Jhon Muller MD PCP: Dr. 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 When Was Last Pacemaker Check QUESTION #4 FULL TEXT: You/Your Family Experience fever (hyperthermia) with Anesthesia Last Oral Intake Last Oral intake: Last Oral Intake NPO since Meds taken in AM with sips of water? Meds patient instructed to take am of surgery PONV PONV - gamma facilities operator: PONV - gamma facilities operator Female Yes 05/14/25 13:27 HX of Motion Sickness No 05/14/25 13:27 HX of N/V After Surgery No 05/14/25 13:27 Non-Smoker Yes 05/14/25 13:27 Duration of Surgery greater Yes 05/14/25 13:27 than 60 minutes Number of Risk Factors 3 05/14/25 13:27 PONV Score Moderate Risk 05/14/25 13:27 Height Weight Height Weight: Anesthesia: Height Weight Height 5 ft 1 in 04/26/25 13:08 Respiratory Assessment Respiratory Assessment - gamma facilities operator: Respiratory Tract Infection Hx - gamma facilities operator Hx Respiratory Tract Infection No 05/14/25 13:27 STOP Sleep Apnea STOP Sleep Apnea - gamma facilities operator: STOP Sleep Apnea - gamma facilities operator Hx Hypertension Yes 05/14/25 13:27 Hx Sleep Apnea No 05/14/25 13:27 CPAP BIPAP Do you snore loudly (louder Yes 05/14/25 13:27 than talking or can be heard Do you often feel tired/ No 05/14/25 13:27 fatigued/ sleepy during daytime? Has anyone observed you stop No 05/14/25 13:27 breathing during sleep? STOP Results Positive 05/14/25 13:27 QUESTION #5 FULL TEXT : Do you snore loudly (louder than talking or can be heard through closed doors)? 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 Specify any problems Hx of Preganancy in last 3 N/A 05/14/25 13:27 Months Nurse Filling Out Transfusion MANDAOEIMANI 05/14/25 13:27 Questions: Date: 05/14/25 05/14/25 13:27 Time: 13:30 05/14/25 13:27 Patient unable to answer at this time (ie. confused, unrespo /Reproduction History /Reproductive History - gamma facilities operator: /Reproductive Hx- gamma facilities operator Hx Now Gestational Age (in weeks): EDC: Hx Hx Para Hx Section SAB No 05/14/25 13:27 [facility] Medical History Wears glasses Heartburn Former smoker History of edema Constipation Stress incontinence Nocturia High cholesterol Hypertension Arthritis Allergies Pure hypercholesterolemia Vitamin D deficiency Osteopenia Hypothyroid Home Medications ???Medication ???Instructions ???Recorded ???Last Taken ???Type amlodipine 10 mg tablet (Norvasc) 10 mg PO DAILY 08/22/20 Unknown H istory cholecalciferol (vitamin D3) 125 125 mcg PO DAILY 08/22/20 Unknown History mcg (5,000 unit) capsule pravastatin 40 mg tablet 40 mg PO DAILY 08/22/20 Unknown Hi story ascorbate calcium (vitamin C) 500 500 mg PO DAILY 09/17/20 Unknown History mg tablet hydrochlorothiazide 12.5 mg tablet 25 mg PO DAILY SWELLING 09/17/20 Unknown History (more content not included)... Normal [facility] Magnesiumon 05-21-2025 Magnesium [Mass/Vol] 2.1 mg/dL Normal 1.5-2.2 [facility] Comment on above: Performed By: #### L 501.9520, L501.5200 #### [facility] [address] [place], [place], [address] Thyroid Stim Hormone (TSH)on 05-21-2025 TSH 3.180 uIU/mL Normal 0.300-4.200 [facility] Comment on above: Performed By: #### L 501.9520, L501.5200 #### [facility] [address] [place], [address] Type AND Screen - PAT ONLYon 05-21-2025 Ab SCREEN GEL Negative Normal [facility] Comment on above: Order Comment: Reaso n for Laboratory Test PRE-OP [id number] No N N S TOTAL VAGINAL HYSTERECTOMY Performed By: #### B TSPAT, L100.0500, L500.4050 #### [facility] [address] [place], [address] ABO and Rh group Nom (Bld) Blood group O Rh(D) positive Normal [facility] Comment on above: Order Comment: Reaso n for Laboratory Test PRE-OP 20250525 No N N S TOTAL VAGINAL HYSTERECTOMY Performed By: #### B TSPAT, L100.0500, L500.4050 #### [facility] [address], [address] Laboratory - Chemistry and C hemistry - challengeOrdered By: Latasha Ceballos on 05-16-2025 Bilirubin Ql (U) Negative [facility] Glucose Ql (U) Negative [facility] Ketones Ql (U) Negative [facility] pH (U) 7 [pH] [facility] Specific gravity (U) [Rel density] 1.010 [facility] Urobilinogen (U) [Mass/Vol] 0.1406451 mg/dL [facility] - Hematology and Cell countsOrdered By: Latasha Ceballos on 05-16-2025 Hemoglobin Ql (U) Negative [facility] - UrinalysisOrder ed By: Latasha Ceballos on 05-16-2025 Nitrite Ql (U) Negative [facility] Protein Ql (U) Negative [facility] MR/Clint 05-16-2025 /THUY [facility] [address], [address] [place] [address] OFFICE VISIT Date of Service: 05/16/25 MR#: [id number] Acct: [id number] Name: MERLYN LOWE Rep #: [id number] : 1950 Provider: Dr. 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 Required: No Accompanied by: self Is patient in pain?: No Allergies Penicillins Adverse Reaction (Mild, Verified 05/16/25 08:36) CAUSES YEAST INFECTIONS Medications ???Medication ???Instructions ???Recorded ???Confirmed ???Type amlodipine 10 mg tablet (Norvasc) 10 mg PO DAILY 08/22/20 05/16/25 History cholecalciferol (vitamin D3) 125 125 mcg PO DAILY 08/22/20 05/16/25 History mcg (5,000 unit) capsule pravastatin 40 mg tablet 40 mg PO DAILY 08/22/20 05/16/25 H istory ascorbate calcium (vitamin C) 500 500 mg PO DAILY 09/17/20 05/16/25 History mg tablet hydrochlorothiazide 12.5 mg tablet 25 mg PO DAILY SWELLING 09/17/20 05/16/25 History levothyroxine 25 mcg capsule 50 mcg PO DAILY 01/25/23 05/16/25 History estradiol 0.01% (0.1 mg/gram) See Rx Instructions vaginal 05/16/25 Rx vaginal cream .COMPLEX #42.5 grams calcium carbonate (Calcium 600) 600 mg PO QDAY 04/13/25 05/16/25 H istory Vitamin E 180 mg PO DAILY 04/26/25 05/16/25 History coenzyme Q10 10 mg capsule (Co 10 mg PO QDAY 04/26/25 05/16/25 Hi story Q-10) folate 800 mcg PO DAILY 04/26/25 05/16/25 History Have you fallen in the past year?: No Nurse's Note: Patient reports she is well today, with no sx of infection. 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 Urology Chief Complaint: preoperation visit with urine a consent Details: MERLYN LOWE, is a 74 F. The patient is here for preoperative history and physical prior to anterior repair, possible posterior repair, possible bilateral sacrospinous ligament fixation with dermis, mid urethral sling, cystoscopy with bilateral ureteral catheterization. There are no new symptoms since the last visit. The procedure, recovery and expectations were explained. The risks, benefits and alternatives were discussed, including but not limited to, the risks of anesthesia, bleeding, infection, injury, pain and the need for further intervention. We have discussed the risk of exposure to and/or potential harm posed by the COVID-19 virus with having a surgery/procedure at this time. A joint decision was made at this time to proceed with the scheduled surgery/procedure as indicated on the consent form. ROS Const Constitutional: No chills, fatigue, fever(s), headache(s), night sweats, weakness, weight change, abnormal sleep pattern or change in appetite Eyes Eyes: No change in vision ENT ENT: No headache(s) or dry mouth Resp Respiratory: No cough, chest congestion, shortness of breath or wheezing Cardio Cardiology: Positive for other (No chest pain.); No shortness of breath, irregular heart rhythm or lightheadedness Gastro GI: Positive for other (No nausea.); No abdominal pain, change in bowel habits, constipation, diarrhea or vomiting Musc Musculoskeletal: No abnormal gait Skin Skin: No yellowing of the eye, lesions, itchy eyes, rash or skin ulcer Neuro Neurology: No abnormal gait, confusion, dizziness, weakness, headache(s) or memory loss Psych Psychiatric: No abnormal sleep pattern, No change in appetite, No confusion and No memory loss Endo Endocrine: No fatigue, increased thirst/drinking or weight change Aller/Imm Allergy/Immunologic: No itch (more content not included)... Normal [facility] No Panel InformationOrdered By: Latasha Ceballos on 05-16-2025 Urine Leukocytes Negatve [facility] Urine Non-Hemolyzed Blood Negative [facility] Drum Puller Office Visit Reporton 05-09-2025 Drum Puller Office Visit Report [facility] [address], [address] [place] [address] OFFICE VISIT Date of Service: 05/09/25 MR#: [id number] Acct: [id number] Name: MERLYN LOWE Rep #: [id number] : 1950 Provider: VIBHA aguero Age/Sex: 74/F Location: [facility] [place] Status: Signed Intake Vital Signs 04/26/25 13:08 05/09/25 12:59 05/09/25 13:03 Height 5 ft 1 in 5 ft 1 in 5 ft 1 in Weight: 159 lb 156 lb 6 oz BMI 30.0 29.5 BP 145/66 H 129/80 H Intake Visit Reasons: EMB prior to surgery 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 Required: No Is patient in pain?: No Allergies No Known Allergies Allergy (Verified 05/09/25 13:06) Medications ???Medication ???Instructions ???Recorded ???Confirmed ???Type amlodipine 10 mg tablet (Norvasc) 10 mg PO DAILY 08/22/20 05/09/25 History cholecalciferol (vitamin D3) 125 125 mcg PO DAILY 08/22/20 05/09/25 History mcg (5,000 unit) capsule pravastatin 40 mg tablet 40 mg PO DAILY 08/22/20 05/09/25 H istory ascorbate calcium (vitamin C) 500 500 mg PO DAILY 09/17/20 05/09/25 History mg tablet hydrochlorothiazide 12.5 mg tablet 12.5 mg PO DAILY PRN 09/17/20 History levothyroxine 25 mcg capsule 50 mcg PO DAILY 01/25/23 05/09/25 History estradiol 0.01% (0.1 mg/gram) See Rx Instructions vaginal 05/09/25 Rx vaginal cream .COMPLEX #42.5 grams calcium carbonate (Calcium 600) 600 mg PO QDAY 04/13/25 05/09/25 H istory Vitamin E PO 04/26/25 05/09/25 History coenzyme Q10 10 mg capsule (Co 10 mg PO QDAY 04/26/25 05/09/25 Hi story Q-10) folate PO 04/26/25 05/09/25 History Is last menstrual period known: No Post menopausal: Yes Patient : No : No PFSH PFSH Medical History Constipation Stress incontinence Nocturia High cholesterol Hypertension Arthritis Allergies Pure hypercholesterolemia Vitamin D deficiency Osteopenia Hypothyroid Surgical History History of tonsillectomy Family History Grandfather Tuberculosis Grandmother Cancer uterine Grandfather CVA (cerebral vascular accident) Grandmother Diabetes Enlarged heart Father Hypertension Heart disease TIA (transient ischemic attack) Mother Breast cancer Other Chronic kidney disease 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 Smoking Status: Former smoker alcohol intake: current alcohol intake frequency: holidays/special occasions only substance use type: does not use seatbelt use: always additional social history: - Alber History 2 Elective abortions Hx Para 2 Spontaneous abortions Hx # Term Pregnancies Ectopic pregnancies Hx # Pregnancies Multiple births # of living children 2 HPI EMB prior to surgery Details: MERLYN LOWE is a 74 year old who presents for EMB prior to hysterectomy Exam Const General: cooperative and no acute distress Nutritional Appearance: well nourished Orientation: oriented x3 External Female Exam: normal external appearance Speculum Exam - Vagina: vagina atrophic Bimanual Exam- Vagina Uterus: uterine size normal and non-tender Bimanual Exam- Adnexa, other: normal adnexae, no masses and non-tender Pelvic Support: other (stable prolapse) Office Procedures Endometrial Biopsy Endometrial Biopsy Test: Yes Not Applicable Consent Signed: Yes Time out checklist: patient, procedure, site marked/identified, positioning of patient, supplies available, allergies confirmed and team agrees on procedure Time out time: 13:05 tenaculum used: Yes dilator used: No Details: Cervix prepped with betadine and syringe pipelle inserted 7 cm into uterus without complication. Minimal specimen obtained and sent to lab for analysis. All instruments removed from vagina without complications. Excellent hemostasis noted. Coding Level of Care Code Attention Home Economist Consumer Service Diagnoses Cystocele with incomplete uterovaginal prolapse N81.2 Urethral caruncle N36.2 Atrophic vaginitis N95.2 CPT Codes Endometrial Biopsy (37269) Assessment and Plan Assessment and Plan (1) Cystocele with incomplete uterovaginal prolapse: Status: Acute (2) Urethral caruncle: Status: Acute (3) Atrophic vaginitis: Status: Acute Comment: estradiol cream 3 nights a week Orders: Orders Endometrial Biopsy Today R93.89 - Abnormal findings on diagnostic imaging of other specified body structures Plan reviewed S S infection. Notify of pathology 05/09/25 1322 Date Carli Crespo (more content not included)... Normal [facility] Surgery Specimen Level Kim 05-09-2025 Surgery Specimen Level IV Patient Age/Sex Location Account Attending Physician MERLYN LOWE 74/F LABSPEC [id number] VIBHA Calderon Specimen: [id number] Received: 05/09/25 Status: HUMPHREY Morelos Num: [id number] Spec Type: FRANCESCA BX/C Subm Dr: Carli Wayne, DANIELAC HEADER OPERATION: Endometrial biopsy PRE-OP DIAGNOSIS: Thickened endometrium TISSUE SUBMITTED: A- Endometrial tissue MICROSCOPIC DIAGNOSIS A. Endometrium, biopsy: * Strips of benign columnar epithelium consistent with endometrial and/or endocervical origin. * Atrophic squamous epithelium. * See note. Note: No endometrial stroma is observed in this section. The findings are consistent with atrophy. The pre-op diagnosis of thickened endometrium is noted. Clinical correlation is necessary to assess the adequacy of this sampling. MICROSCOPIC DESCRIPTION Slides are reviewed. GROSS DESCRIPTION A. Received in formalin labeled the patient's name and date of are scant flecks of free-floating tissue within the container which are entirely submitted in 1 cassette for cellblock preparation. ME 05/09/2025 CPT:77145 Patient Age/Sex Location Account Attending Physician MERLYN LOWE 74/F LABSPEC [id number] VIBHA Calderon Signed (signature on file) Dr. Adelaida eKlley MD 05/17/25 1111 Normal [facility] Comment on above: Performed By: #### P SUIV ####[facility] [id number] [facility]. [place], [place], [address] Pelvic w/ Transvaginalon Pelvic w/ Transvaginal [facility] Imaging Services [address] [place], [place] [address] Pelvic w/ Transvaginal MR#: [id number] Acct: [id number] Name: MERLYN LOWE Rep #: [id number] : 1950 F 74 From: Teto westbrook MD PCP: Dr. Luke Navarro MD Status: [facility] Study: Pelvic w/ Transvaginal Date of Exam: 05/02/25 Exam# [id number] Ordering Dr: India Silverman PROCEDURE: PELVIC W/ TRANSVAGINAL REASON FOR EXAM: CYSTOCELE TECHNIQUE: Procedure Code: [id number] Modality: US Procedure: PELVIC W/ TRANSVAGINAL COMPARISON: None FINDINGS: Patient is postmenopausal. Measurements: Uterus: 7.1 cm x 5.3 cm x 2.2 cm with a volume of 44.7 mL Endometrial Thickness: 5 mm. This is thickened for the postmenopausal state. Small amount of fluid is seen within the endometrium. There are 2, small uterine fibroids. Right Ovary: 1.8 cm x 2.1 cm x 1.2 cm with a volume of 4.4 mL. Left Ovary: Not visualized. TRANSABDOMINAL: Uterus: Fibroid uterus. Nabothian cysts. Endometrium: Endometrium is thickened measuring 5 mm. Right ovary: Normal size and echotexture. Left ovary: Not visualized. Other: No large pelvic mass identified. Transvaginal sonography was performed to better visualize the endometrium. TRANSVAGINAL: Uterus: Anteverted. Fibroid uterus. Endometrium: The endometrium is thickened measuring 5 mm. Fluid is seen within the endometrium. Right ovary: Normal size and echotexture. Left ovary: Not visualized. Other adnexal findings: None. Cul-de-sac: No free intraperitoneal fluid identified. Tenderness: No tenderness US/Pelvic w/ Transvaginal IMPRESSION: Endometrial thickening. Fibroid uterus. Reading Location: [place] [address] CC: Dr. Luke Navarro MD; Dr. India Silverman MD Body And Frame Technician: Signed Normal [facility] Drum Puller Office Visit Reporton 04-26-2025 Drum Puller Office Visit Report [facility] [address], [address] [place] [address] OFFICE VISIT Date of Service: 04/26/25 MR#: [id number] Acct: [id number] Name: MERLYN LOWE Rep #: [id number] : 1950 Provider: Dr. India haines MD Age/Sex: 74/F Location: [facility] [place] Status: Signed Intake Vital Signs 03/06/25 11:17 04/23/25 11:52 04/26/25 13:08 Height 5 ft 1 in 5 ft 1 in 5 ft 1 in Weight: 159 lb BMI 30.0 BP 145/66 H Intake Visit Reasons: Consult for Lin rothman (keep 20 min) 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 Required: No Is patient in pain?: Yes (chronic knee pain) Allergies No Known Allergies Allergy (Verified 04/26/25 13:12) Medications ???Medication ???Instructions ???Recorded ???Confirmed ???Type amlodipine 10 mg tablet (Norvasc) 10 mg PO DAILY 08/22/20 04/26/25 History cholecalciferol (vitamin D3) 125 125 mcg PO DAILY 08/22/20 04/26/25 History mcg (5,000 unit) capsule pravastatin 40 mg tablet 40 mg PO DAILY 08/22/20 04/26/25 H istory ascorbate calcium (vitamin C) 500 500 mg PO DAILY 09/17/20 04/26/25 History mg tablet hydrochlorothiazide 12.5 mg tablet 12.5 mg PO DAILY PRN 09/17/20 History levothyroxine 25 mcg capsule 50 mcg PO DAILY 01/25/23 04/26/25 History estradiol 0.01% (0.1 mg/gram) See Rx Instructions vaginal 04/26/25 Rx vaginal cream .COMPLEX #42.5 grams calcium carbonate (Calcium 600) 600 mg PO QDAY 04/13/25 04/26/25 H istory Vitamin E PO 04/26/25 History coenzyme Q10 10 mg capsule (Co 10 mg PO QDAY 04/26/25 04/26/25 Hi story Q-10) folate PO 04/26/25 History Is last menstrual period known: No Post menopausal: Yes Patient : No : No PFSH Medical History Constipation Stress incontinence Nocturia High cholesterol Hypertension Arthritis Allergies Pure hypercholesterolemia Vitamin D deficiency Osteopenia Hypothyroid Surgical History History of tonsillectomy Family History Grandfather Tuberculosis Grandmother Cancer uterine Grandfather CVA (cerebral vascular accident) Grandmother Diabetes Enlarged heart Father Hypertension Heart disease TIA (transient ischemic attack) Mother Breast cancer Other Chronic kidney disease 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 she has had a vaginal bulge and pressure intermittenly increasing over the last year and denies any vaginal bleeding or abnormal dishcarge, wants to have definitive treatment. She has a history of hypothyroidism, hyperlipidemia, and hypertension, which are well-managed with medications. Her surgical history includes a tonsillectomy, and she reports no significant family history of cancer. The patient also has osteoarthritis in the knees and experiences constipation. She denies urinary or fecal incontinence, nausea, vomiting, or other gastrointestinal issues. Attestation: Documentation on this patient encounter was supported using ambient scribe technology/ voice AI technology. The patient consented to recording for the purpose of documenting the encounter. Provider reviewed content of the generated note prior to signature. Female Reproductive History Questions: metrorrhagia: No, dyspareunia: No and PCB: No Menopausal Symptoms: No night sweats History 2 Elective abortions Hx Para 2 Spontaneous abortions Hx # Term Pregnancies Ectopic pregnancies Hx # Pregnancies Multiple births # of living children 2 ROS Const Constitutional: Reports system reviewed and no additional complaints, except as documented; Denies fatigue, headache(s) or night sweats ENT ENT: Reports system reviewed and no additional complaints, except as documented Cardio Card: Denies chest pain Resp Resp: Denies cough or dyspnea GI GI: Reports constipation; Denies abdominal pain, bloating, change in stool character, fecal incontinence, nausea or vomiting : Reports prolapse symptoms, urinary incontinence and vaginal dryness; Denies nipple discharge, pelvic pain, sexual dysfunction, urinary frequency, urinary urgency, vaginal discharge, vaginal odor or vaginal pruritus Musc Musc: Reports arthralgias; Denies back pain or muscle weakness Skin Skin/Breast: Denies alopecia, hussein (more content not included)... Normal [facility] Laboratory - Chemistry and C hemistry - challengeOrdered By: Latasha Ceballos on 04-23-2025 Bilirubin Ql (U) Negative [facility] Glucose Ql (U) Negative [facility] Ketones Ql (U) Negative [facility] pH (U) 7 [pH] [facility] Specific gravity (U) [Rel density] 1.005 [facility] Urobilinogen (U) [Mass/Vol] 0.5446835 mg/dL [facility] Laboratory - Hematology and Cell countsOrdered By: Latasha Ceballos on 04-23-2025 Hemoglobin Ql (U) Negative [facility] Laboratory - UrinalysisOrder ed By: Latasha Ceballos on 04-23-2025 Nitrite Ql (U) Negative [facility] Protein Ql (U) Trace [facility] MR/BMSZACHon 04-23-2025 MR/THUY [facility] [address], [address] [place] [address] OFFICE VISIT Date of Service: 04/23/25 MR#: [id number] Acct: [id number] Name: MERLYN LOWE Rep #: [id number] : 1950 Provider: Dr. Latasha Simmons i, MD Age/Sex: 74/F Location: [facility] [place] Status: Signed Intake Vital Signs 04/13/25 13:43 04/17/25 14:33 04/23/25 11:52 Height 5 ft 1 in 5 ft 1 in 5 ft 1 in Weight: 161 lb BMI 30.4 BP 136/75 H Pulse 65 Intake Visit Reasons: CYSTO PELVIC Chief Complaint: cysto and pelvic exam 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 Required: No Accompanied by: self Is patient in pain?: No Allergies No Known Allergies Allergy (Verified 04/23/25 11:52) Medications ???Medication ???Instructions ???Recorded ???Confirmed ???Type amlodipine 10 mg tablet (Norvasc) 10 mg PO DAILY 08/22/20 04/23/25 History cholecalciferol (vitamin D3) 125 125 mcg PO DAILY 08/22/20 04/23/25 History mcg (5,000 unit) capsule pravastatin 40 mg tablet 40 mg PO DAILY 08/22/20 04/23/25 H istory ascorbate calcium (vitamin C) 500 500 mg PO DAILY 09/17/20 04/23/25 History mg tablet hydrochlorothiazide 12.5 mg tablet 12.5 mg PO DAILY PRN 09/17/20 History levothyroxine 25 mcg capsule 50 mcg PO DAILY 01/25/23 04/23/25 History estradiol 0.01% (0.1 mg/gram) See Rx Instructions vaginal 04/23/25 Rx vaginal cream .COMPLEX #42.5 grams calcium carbonate (Calcium 600) 600 mg PO QDAY 04/13/25 04/23/25 H istory Have you fallen in the past year?: No PFSH Medical History (Updated 04/23/25 @ 12:[address] 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 She is here for cystoscopy and pelvic exam today. She has no sign of acute urinary tract infection today. She denies hematuria. Questions regarding the procedure were answered and she gives consent to proceed. She is using the estrogen cream. She has been struggling with constipation since she started calcium. We discussed options. She is tentatively scheduled for surgery 05/25/25. She is seeing gynecology later this week. ROS Const Constitutional: No chills, fatigue, fever(s), headache(s), night sweats, weakness, weight change, abnormal sleep pattern or change in appetite Eyes Eyes: No change in vision ENT ENT: No headache(s) or dry mouth Resp Respiratory: No cough, chest congestion, shortness of breath or wheezing Cardio Cardiology: Positive for other (No chest pain.); No shortness of breath, irregular heart rhythm or lightheadedness Gastro GI: Positive for change in bowel habits, constipation and other (No nausea.); No abdominal pain, diarrhea or vomiting Musc Musculoskeletal: No abnormal gait Skin Skin: No yellowing of the eye, lesions, itchy eyes, rash or skin ulcer Neuro Neurology: No abnormal gait, confusion, dizziness, weakness, headache(s) or memory loss Psych Psychiatric: No abnormal sleep pattern, No change in appetite, No confusion and No memory loss Endo Endocrine: No fatigue, increased thirst/drinking or weight change Aller/Imm Allergy/Immunologic: No itchy eyes or wheezing Kwasi/Lymp Hematologic/Lymphatic: No easy bleeding, easy bruising or enlarged lymph nodes Exam Const General: cooperative, healthy appearing, comfortable and no acute distress HENMT Head: normocephalic and atraumatic Ears: hearing grossly normal bilaterally and external ears normal Nose: external nose normal Eyes General: appearance normal, both eyes and all related structures Neck Neck: normal visual inspection and trachea midline Chest Chest palpation inspection: normal inspection of the chest Resp Effort Inspection: normal respiratory effort, able to speak in complete sentences and symmetric chest movement Cardio Rate: regular rate GI Inspection: normal to inspection Palpation: soft and nonten (more content not included)... Normal [facility] No Panel InformationOrdered By: Latasha Ceballos on 04-23-2025 Urine Leukocytes Positive [facility] Urine Non-Hemolyzed Blood Negative [facility] Laboratory - Chemistry and C hemistry - challengeOrdered By: Latasha Ceballos on 04-17-2025 Bilirubin Ql (U) Negative [facility] Glucose Ql (U) Negative [facility] Ketones Ql (U) Negative [facility] pH (U) 6 [pH] [facility] Specific gravity (U) [Rel density] 1.010 [facility] Urobilinogen (U) [Mass/Vol] 0.0734839 mg/dL [facility] Laboratory - Hematology and Cell countsOrdered By: Latasha Ceballos on 04-17-2025 Hemoglobin Ql (U) Negative [facility] Laboratory - Specimen inform ationOrdered By: Latasha Ceballos on 04-17-2025 Color (U) YELLOW [facility] Laboratory - UrinalysisOrder ed By: Latasha Ceballos on 04-17-2025 Nitrite Ql (U) Negative [facility] Protein Ql (U) Negative [facility] MR/Clint 04-17-2025 MR/THUY [facility] [address], [address] [place] [address] OFFICE VISIT Date of Service: 04/17/25 MR#: [id number] Acct: [id number] Name: MERLYN LOWE Rep #: [id number] : 1950 Provider: Dr. Latasha Simmons i, MD Age/Sex: 74/F Location: [facility] [place] Status: Signed Intake Vital Signs 04/13/25 13:43 04/17/25 14:33 Height 5 ft 1 in 5 ft 1 in Weight: 161 lb BMI 30.4 BP 128/80 H Pulse 70 Temp 97.9 F Intake Visit Reasons: 2HR UDS Chief Complaint: 2hr UDS 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 Required: No Is patient in pain?: No Allergies No Known Allergies Allergy (Verified 04/26/25 13:12) Medications ???Medication ???Instructions ???Recorded ???Confirmed ???Type amlodipine 10 mg tablet (Norvasc) 10 mg PO DAILY 08/22/20 04/26/25 History cholecalciferol (vitamin D3) 125 125 mcg PO DAILY 08/22/20 04/26/25 History mcg (5,000 unit) capsule pravastatin 40 mg tablet 40 mg PO DAILY 08/22/20 04/26/25 H istory ascorbate calcium (vitamin C) 500 500 mg PO DAILY 09/17/20 04/26/25 History mg tablet hydrochlorothiazide 12.5 mg tablet 12.5 mg PO DAILY PRN 09/17/20 History levothyroxine 25 mcg capsule 50 mcg PO DAILY 01/25/23 04/26/25 History estradiol 0.01% (0.1 mg/gram) See Rx Instructions vaginal 04/26/25 Rx vaginal cream .COMPLEX #42.5 grams calcium carbonate (Calcium 600) 600 mg PO QDAY 04/13/25 04/26/25 H istory Vitamin E PO 04/26/25 History coenzyme Q10 10 mg capsule (Co 10 mg PO QDAY 04/26/25 04/26/25 Hi story Q-10) folate PO 04/26/25 History Have you fallen in the past year?: No PFSH Medical History Constipation Stress incontinence Nocturia High cholesterol Hypertension Arthritis Allergies Pure hypercholesterolemia Vitamin D deficiency Osteopenia Hypothyroid Surgical History History of tonsillectomy Family History Grandfather Tuberculosis Grandmother Cancer uterine Grandfather CVA (cerebral vascular accident) Grandmother Diabetes Enlarged heart Father Hypertension Heart disease TIA (transient ischemic attack) Mother Breast cancer Other Chronic kidney disease 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 Urology Chief Complaint: 2hr UDS Details: MERLYN LOWE, is a 74 F. There is no sensation of infection today including dysuria or hematuria. The procedure was explained and questions were answered. She agreed to proceed. ROS Const Constitutional: No chills, fatigue, fever(s), headache(s), night sweats, weakness, weight change, abnormal sleep pattern or change in appetite Eyes Eyes: No change in vision ENT ENT: No headache(s) or dry mouth Resp Respiratory: No cough, chest congestion, shortness of breath or wheezing Cardio Cardiology: Positive for other (No chest pain.); No shortness of breath, irregular heart rhythm or lightheadedness Gastro GI: Positive for change in bowel habits, constipation and other (No nausea.); No abdominal pain, diarrhea or vomiting Musc Musculoskeletal: No abnormal gait Skin Skin: No yellowing of the eye, lesions, itchy eyes, rash or skin ulcer Neuro Neurology: No abnormal gait, confusion, dizziness, weakness, headache(s) or memory loss Psych Psychiatric: No abnormal sleep pattern, No change in appetite, No confusion and No memory loss Endo Endocrine: No fatigue, increased thirst/drinking or weight change Aller/Imm Allergy/Immunologic: No itchy eyes or wheezing Kwasi/Lymp Hematologic/Lymphatic: No easy bleeding, easy bruising or enlarged lymph nodes Exam Const General: cooperative, healthy appearing, comfortable and no acute distress [facility] Head: normocephalic and atraumatic Ears: hearing grossly normal bilaterally and external ears normal Nose: external nose normal Eyes General: appearance normal, both eyes and all related structures Neck Neck: normal visual inspection and trachea midline Chest Chest palpation inspection: normal inspection of the chest Resp Effort Inspection: normal respiratory effort, able to speak in complete sentences and symmetric chest movement Cardio Rate: regular rate GI Inspection: normal to inspection Palpation: soft and nontender General: No CVA tenderness External Female Exam: normal external appearance and lesion Urethra: lesion caruncle Speculum Exam - Vagina: no lesions Bimanual Exam- Adnexa, other: N (more content not included)... Normal [facility] No Panel InformationOrdered By: Latasha Ceballos on 04-17-2025 Urine Leukocytes Positive [facility] Comment on above: 15 Laboratory - Chemistry and C hemistry - challengeOrdered By: Latasha Ceballos on 04-13-2025 Bilirubin Ql (U) Negative [facility] Glucose Ql (U) Negative [facility] Ketones Ql (U) Negative [facility] pH (U) 6.5 [pH] [facility] Specific gravity (U) [Rel density] 1.010 [facility] Urobilinogen (U) [Mass/Vol] Negative [facility] Laboratory - Hematology and Cell countsOrdered By: Latasha Ceballos on 04-13-2025 Hemoglobin Ql (U) Negative [facility] Laboratory - UrinalysisOrder ed By: Latasha Ceballos on 04-13-2025 Nitrite Ql (U) Negative [facility] Protein Ql (U) Trace [facility] MR/Clint 04-13-2025 MR/THUY [facility] [address], [address] [place] [address] OFFICE VISIT Date of Service: 04/13/25 MR#: [id number] Acct: [id number] Name: MERLYN LOWE Rep #: [id number] : 1950 Provider: Dr. Latasha Simmons i, MD Age/Sex: 74/F Location: [facility] [place] Status: Signed Intake Vital Signs 03/06/25 11:17 04/13/25 13:43 Height 5 ft 1 in 5 ft 1 in Weight: 159 lb 6 oz 161 lb BMI 30.1 30.4 BP 138/77 H 127/75 H Pulse 66 Intake Visit Reasons: prolapse. 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 Accompanied by: Self Is patient in pain?: No Allergies No Known Allergies Allergy (Verified 04/13/25 13:43) Medications ???Medication ???Instructions ???Recorded ???Confirmed ???Type amlodipine 10 mg tablet (Norvasc) 10 mg PO DAILY 08/22/20 04/13/25 History cholecalciferol (vitamin D3) 125 125 mcg PO DAILY 08/22/20 04/13/25 History mcg (5,000 unit) capsule pravastatin 40 mg tablet 40 mg PO DAILY 08/22/20 04/13/25 H istory ascorbate calcium (vitamin C) 500 500 mg PO DAILY 09/17/20 04/13/25 History mg tablet hydrochlorothiazide 12.5 mg tablet 12.5 mg PO DAILY PRN 09/17/20 History levothyroxine 25 mcg capsule 50 mcg PO DAILY 01/25/23 04/13/25 History estradiol 0.01% (0.1 mg/gram) See Rx Instructions vaginal 04/13/25 Rx vaginal cream .COMPLEX #42.5 grams calcium carbonate (Calcium 600) 600 mg PO QDAY 04/13/25 04/13/25 H istory Have you fallen in the past year?: No Nurse's Note: Bladder scan PVR:0cc PFSH Medical History (Updated 04/13/25 @ 14:[address] 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 Chief Complaint: new patient for prolapse combo surgery Details: MERLYN LOWE, is a 74 F. She is here for evaluation and management of pelvic organ prolapse. This has been gradually increasing over the last 3 or so years. She is voiding 3-4 times during the day, 2 times at night. There is no urge incontinence where she cannot make it to the bathroom. There is no stress incontinence with cough, laugh, sneeze, lifting, etc. She has had no urinary tract infections in the last year. She has been using vaginal estrogen cream for the last 3 years. She has not had visible blood in her urine. She is not sexually active because the prolapse is in the way. She has the following issues with chronic bowel function: constipation, trouble emptying but is not splinting to defecate. She is using fiber supplements, stool softeners etc as needed. There is no pelvic pain. She has a history of smoking. She quit 20yrs ago. There is no history of blood clots or easy bleeding. There is a family history of breast cancer in her mom. ROS Const Constitutional: No chills, fatigue, fever(s), headache(s), night sweats, weakness, weight change, abnormal sleep pattern or change in appetite Eyes Eyes: No change in vision ENT ENT: No headache(s) or dry mouth Resp Respiratory: No cough, chest congestion, shortness of breath or wheezing Cardio Cardiology: Positive for other (No chest pain.); No shortness of breath, irregular heart rhythm or lightheadedness Gastro GI: Positive for constipation and other (No nausea.); No abdominal pain, change in bowel habits, diarrhea or vomiting Musc Musculoskeletal: No abnormal gait Skin Skin: No yellowing of the eye, lesions, itchy eyes, rash or skin ulcer Neuro Neurology: No abnormal gait, confusion, dizziness, weakness, headache(s) or memory loss Psych Psychiatric: No abnormal sleep pattern, No change in appetite, No confusion and No memory loss Endo Endocrine: No fatigue, increased thirst/drinking or weight change Aller/Imm Allergy/Immunologic: No itchy eyes or wheezing Kwasi/Lymp Hematologic/Lymphatic: No easy bleeding, easy bruising or enlarged lymph nodes Exam Const General: cooperative, healthy appearing, comfortable and no acute dis (more content not included)... Normal [facility] No Panel InformationOrdered By: Latasha Ceballos on 04-13-2025 Urine Leukocytes Negatve [facility] Urine Non-Hemolyzed Blood Negative [facility] Drum Puller Office Visit Reporton 03-06-2025 Drum Puller Office Visit Report [facility] [address], [address] [place] [id number] OFFICE VISIT Date of Service: 03/06/25 MR#: [id number] Acct: [id number] Name: MERLYN LOWE Rep #: [id number] : 1950 Provider: VIBHA aguero Age/Sex: 74/F Location[place] [facility] [place] Status: Signed Intake Vital Signs 03/02/24 13:10 03/06/25 11:17 Height 5 ft 1 in 5 ft 1 in Weight: 159 lb 6 oz BMI 30.1 BP 138/77 H 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 Is patient in pain?: No Allergies No Known Allergies Allergy (Verified 03/06/25 11:26) Medications ???Medication ???Instructions ???Recorded ???Confirmed ???Type amlodipine 10 mg tablet (Norvasc) 10 mg PO DAILY 08/22/20 03/06/25 History cholecalciferol (vitamin D3) 125 125 mcg PO DAILY 08/22/20 03/06/25 History mcg (5,000 unit) capsule pravastatin 40 mg tablet 40 mg PO DAILY 08/22/20 03/06/25 H istory ascorbate calcium (vitamin C) 500 500 mg PO DAILY 09/17/20 03/06/25 History mg tablet hydrochlorothiazide 12.5 mg tablet 12.5 mg PO DAILY PRN 09/17/20 History levothyroxine 25 mcg capsule 50 mcg PO DAILY 01/25/23 03/06/25 History estradiol 0.01% (0.1 mg/gram) See Rx Instructions vaginal 03/06/25 Rx vaginal cream .COMPLEX #42.5 grams Is last menstrual period known: No Post menopausal: Yes Patient : No : No PFSH Medical History (Updated 03/06/25 @ 12:45 by Carli Wayne CANE FLUME WATCHER, CANE FLUME WATCHER-C) Pure hypercholesterolemia Vitamin D deficiency Osteopenia Hypothyroid Surgical History History of tonsillectomy Family History Grandfather Tuberculosis Grandmother Cancer uterine Grandfather CVA (cerebral vascular accident) Grandmother Diabetes Enlarged heart Father Hypertension Heart disease TIA (transient ischemic attack) Mother Breast cancer 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 Worsening prolapse, protruding out now. very annoying. More pressure but no pain. Denies bleeding. Wants to be sexually active but in the way Last PAP: 2014; normal History of abnormal PAP: no Last mammogram: thermogram 2024; normal History of abnormal mammogram: no Colon cancer screening: mitchel REMY Other preventative health care screenings: Dr. Navarro; PCP Female Reproductive History Questions: metrorrhagia: No and sexually active: No ROS Const Constitutional: Denies fatigue, weight gain or weight loss Cardio Card: Denies chest pain Resp Resp: Denies cough or dyspnea on exertion GI GI: Denies abdominal pain, bloating, change in stool character, constipation or vomiting : Reports as per HPI; Denies difficulty voiding, pelvic pain, urinary frequency, urinary incontinence, urinary urgency, vaginal discharge or vaginal pruritus Exam Const General: cooperative, healthy appearing, no acute distress and well developed Orientation: alert, oriented to person and oriented to place [facility] Head: normal to inspection Neck Neck: normal visual inspection Thyroid: thyroid normal Lymphatic: no lymphadenopathy noted Chest Breast inspection: normal inspection of the breasts and normal inspection of the axillae Breast palpation: normal palpation of the breasts, normal palpation of the axillae and no axillary lymphadenopathy Resp Effort Inspection: normal respiratory effort GI Palpation: soft, no masses and nontender Rectal Exam: deferred External Female Exam: normal external appearance and normal appearance of the urethra Urethra: normal appearance of the urethra and normal palpation Speculum Exam - Vagina: vagina atrophic Speculum Exam - Cervix: closed (pale) Bimanual Exam- Vagina Uterus: normal bimanual exam, uterine size normal, uterine shape normal and non-tender Bimanual Exam- Adnexa, other: normal adnexae, no masses, non-tender, rectocele, cystocele and vaginal apex descent (to vaginal introitus with valsalva) Pelvic Support: cystocele moderate, rectocele mild and vaginal apex descent (to vaginal introitus with valsalva) moderate Neuro General: patient alert and patient oriented x3 Psych Af (more content not included)... Normal [facility] BUN/creatinine ratioOrdered By: Luke Navarro on 09-21-2024 Urea nitrogen/Creatinine [Mass ratio] 24.6 mg/mg High 10-20 [facility] Basic Metabolic Profile (BMP )on 09-21-2024 Anion gap [Moles/Vol] 12 mmol/L Normal 5-15 [facility] Comment on above: Order Comment: Order Date: 09/19/24 Order Info: [id number] - BMP Order Info: [id number] - LIPID Order Info: [id number] - TSH Performed By: #### L 501.5612, L500.2500, L500.5870 #### [facility] [address] [place], [place], [id number] BUN/CRE 24.6 RATIO High 05-14 [facility] Comment on above: Order Comment: Order Date: 09/19/24 Order Info: [id number] - BMP Order Info: [id number] - LIPID Order Info: [id number] - TSH Performed By: #### L 501.9520, L500.2500, L500.4100 #### [facility] [address] [place], [address] Calcium [Mass/Vol] 10.2 mg/dL Normal 7.6-11.0 [facility] Comment on above: Order Comment: Order Date: 09/19/24 Order Info: 666-07 - BMP Order Info: - LIPID Order Info: [id number] - TSH Performed By: #### L 501.9520, L500.2500, L500.4100 #### [facility] [address] [place], [address] Chloride [Moles/Vol] 100 mmol/L Normal 96-108 [facility] Comment on above: Order Comment: Order Date: 09/19/24 Order Info: 666-07 - BMP Order Info: - LIPID Order Info: [id number] - TSH Performed By: #### L 501.9520, L500.2500, L500.4100 #### [facility] [address] [place], [address] CO2 [Moles/Vol] 26.9 mmol/L Normal 22.0-29.0 [facility] Comment on above: Order Comment: Order Date: 09/19/24 Order Info: 666-07 - BMP Order Info: - LIPID Order Info: [id number] - TSH Performed By: #### L 501.9520, L500.2500, L500.4100 #### [facility] [address] [place], [address] Creatinine [Mass/Vol] 0.8 mg/dL Normal 0.6-1.0 [facility] Comment on above: Order Comment: Order Date: 09/19/24 Order Info: 666-07 - BMP Order Info: - LIPID Order Info: [id number] - TSH Performed By: #### L 501.9520, L500.2500, L500.4100 #### [facility] [address] [place], [address] GFR/1.73 sq M.predicted among non-blacks MDRD (S/P/Bld) [Vol rate/Area] 78 mL/min/{1.73_m2} Normal >60 [facility] Comment on above: Order Comment: Order Date: 09/19/24 Order Info: 666-07 - BMP Order Info: - LIPID Order Info: [id number] - TSH Result Comment: mL/m in/1.73m2 CKD-EPI Creatinine Equation (2020) Performed By: #### L 501.9520, L500.2500, L500.4100 #### [facility] [address] [place], [address] Glucose [Mass/Vol] 84 mg/dL Normal 70-99 [facility] Comment on above: Order Comment: Order Date: 09/19/24 Order Info: 666-07 - BMP Order Info: - LIPID Order Info: [id number] - TSH Performed By: #### L [id number], L500.2500, L500.4100 #### [facility] [address] [place], [address] Potassium [Moles/Vol] 3.6 mmol/L Normal 3.3-5.1 [facility] Comment on above: Order Comment: Order Date: 09/19/24 Order Info: 666-07 - BMP Order Info: - LIPID Order Info: [id number] - TSH Performed By: #### L 501.9520, L500.2500, L500.4100 #### [facility] [address] [place], [address] Sodium [Moles/Vol] 139 mmol/L Normal 133-145 [facility] Comment on above: Order Comment: Order Date: 09/19/24 Order Info: 666-07 - BMP Order Info: - LIPID Order Info: [id number] - TSH Performed By: #### L 501.9520, L500.2500, L500.4100 #### [facility] [address] [place], [place], [address] Urea nitrogen [Mass/Vol] 20 mg/dL High 4-19 [facility] Comment on above: Order Comment: Order Date: 09/19/24 Order Info: [id number] - BMP Order Info: [id number] - LIPID Order Info: [id number] - TSH Performed By: #### L 501.9520, L500.2500, L500.4100 #### [facility] [address] [place], [place], [id number] Calculated very low density lipoprotein (VLDL) cholesterol measurementOrdered By: Luke Navarro on 09-21-2024 VLDL Cholesterol 30 mg/dL 5-40 [facility] Carbon dioxide measurementOr dered By: Luke Navarro on 09-21-2024 CO2 [Moles/Vol] 26.9 mmol/L 22.0-29.0 [facility] Chloride measurementOrdered By: Luke Navarro on 09-21-2024 Chloride [Moles/Vol] 100 mmol/L 96-108 [facility] GFR/1.73 sq M.predicted ruperto g non-blacks MDRD (S/P/Bld) [Vol rate/Area]Ordered By: Luke Navarro on 09-21-2024 Estimated GFR (MDRD) Non-Af Amer 78 >60 [facility] Comment on above: mL/min/1.73m2 CKD-EP I Creatinine Equation (2020) LDL calc ser/plasOrdered By: Luke Navarro on 09-21-2024 LDL Cholesterol, Calculated 145 mg/dL [facility] Comment on above: Bemrabtmuz=408-958 m g/dL & Higher Jslt=699 mg/dL or greater Lipid Profileon 09-21-2024 CHOL:HDL 3.61 Normal [facility] Comment on above: Order Comment: Order Date: 09/19/24 Order Info: 0667-1 - BMP Order Info: [id number] - LIPID Order Info: [id number] - TSH Performed By: #### L 501.9520, L500.2500, L500.4100 #### [facility] [address] [place], [address] Cholesterol [Mass/Vol] 241 mg/dL High <=200 [facility] Comment on above: Order Comment: Order Date: 09/19/24 Order Info: 06 - BMP Order Info: - LIPID Order Info: 3 - TSH Result Comment: Chol esterol level, Desirable <200 mg/dL Borderline high cholesterol 200-239 mg/dL High cholesterol >=240 mg/dL Recommendations of the NCEP Adult Treatment Panel for the following risk-cutoff thresholds for the [place] population. Performed By: #### L 501.9520, L500.2500, L500.4100 #### [facility] [address] [place], [address] Cholesterol in HDL [Mass/Vol] 67 mg/dL Normal [facility] Comment on above: Order Comment: Order Date: 09/19/24 Order Info: 666-07 - BMP Order Info: - LIPID Order Info: [id number] - TSH Result Comment: Madelyn onal Cholesterol Education Program (NCEP) guidelines: <40 mg/dL: Low HDL-cholesterol (major risk factor for CHD) >= 60 mg/dL: High HDL-cholesterol (negative risk factor for CHD) HDL-cholesterol is affected by a number of factors, e.g. smoking, exercise, hormones, sex and age. Performed By: #### L 501.9520, L500.2500, L500.4100 #### [facility] [address] [place], [address] Cholesterol in LDL [Mass/Vol] 145 mg/dL Normal [facility] Comment on above: Order Comment: Order Date: 09/19/24 Order Info: 666-07 - BMP Order Info: [id number] - LIPID Order Info: [id number] - TSH Result Comment: Bord psdivk=001-120 mg/dL Higher Aghb=817 mg/dL or greater Performed By: #### L 501.9520, L500.2500, L500.4100 #### [facility] [address] [place], [address] Cholesterol in VLDL [Mass/Vol] 30 mg/dL Normal 5-40 [facility] Comment on above: Order Comment: Order Date: 09/19/24 Order Info: [id number] - BMP Order Info: [id number] - LIPID Order Info: [id number] - TSH Performed By: #### L 501.9520, L500.2500, L500.4100 #### [facility] [address] [place], [address] Triglyceride [Mass/Vol] 148 mg/dL Normal [facility] Comment on above: Order Comment: Order Date: 09/19/24 Order Info: 06 - BMP Order Info: [id number] - LIPID Order Info: [id number] - TSH Result Comment: The drugs N-Acetylcysteine and Metamizole may falsely depress this assay. Normal range: <150 mg/dL Borderline High: 150-199 mg/dL High: 200-499 mg/dL Very High: >500 mg/dL Performed By: #### L 501.9520, L500.2500, L500.4100 #### [facility] [address] [place], [address] Screening total cholesterol/ high density lipoprotein (HDL) cholesterol ratioOrdered By: Luke Navarro on 09-21-2024 Cholesterol.total/Chol esterol in HDL [Mass ratio] 3.61 {ratio} [facility] Serum creatinine measurement (mass/volume)Ordered By: Luke Navarro on 09-21-2024 Creatinine [Mass/Vol] 0.8 mg/dL 0.70-1.20 [facility] Serum glucose measurement (m ass/volume)Ordered By: Luke Navarro on 09-21-2024 Glucose [Mass/Vol] 84 mg/dL 70-99 [facility] Serum or plasma anion gap de termination (moles/volume)Ordered By: Luke Navarro on 09-21-2024 Anion gap [Moles/Vol] 12 mmol/L 5-15 [facility] Serum or plasma calcium junito urement (mass/volume)Ordered By: Luke Navarro on 09-21-2024 Calcium [Mass/Vol] 10.2 mg/dL 7.6-11.0 [facility] Serum or plasma cholesterol in HDL measurement (mass/volume)Ordered By: Luke Navarro on 09-21-2024 Cholesterol in HDL [Mass/Vol] 67 mg/dL >40 [facility] Comment on above: National Cholesterol Education Program (NCEP) guidelines:<40 mg/dL: Low HDL-cholesterol (major risk factor for CHD)>= 60 mg/dL: High HDL-cholesterol (negative risk factor for CHD)HDL-cholesterol is affected by a number of factors, e.g. smoking, exercise, hormones, sex and age. Serum or plasma cholesterol measurement (mass/volume)Ordered By: Luke Navarro on 09-21-2024 Cholesterol [Mass/Vol] 241 mg/dL High <201 [facility] Comment on above: Cholesterol level, D esirable <200 mg/dLBorderline high cholesterol 200-239 mg/dLHigh cholesterol >=240 mg/dLRecommendations of the NCEP Adult Treatment Panel for the following risk-cutoff thresholds for the [place] population. Serum or plasma potassium me asurementOrdered By: Luke Navarro on 09-21-2024 Potassium [Moles/Vol] 3.6 mmol/L 3.3-5.1 [facility] Serum or plasma sodium measu rement (moles/volume)Ordered By: Luke Navarro on 09-21-2024 Sodium [Moles/Vol] 139 mmol/L 133-145 [facility] Serum or plasma urea nitroge n measurement (mass/volume)Ordered By: Luke Navarro on 09-21-2024 Urea nitrogen [Mass/Vol] 20 mg/dL High 4-19 [facility] TSH DL <= 0.005 mIU/L QnOrde red By: Luke Navarro on 09-21-2024 Thyroid Stimulating Hormone (TSH) 2.190 uIU/mL 0.300-4.200 [facility] Thyroid Stim Hormone (TSH)on 09-21-2024 TSH 2.190 uIU/mL Normal 0.300-4.200 [facility] Comment on above: Order Comment: Order Date: 09/19/24 Order Info: [id number] - BMP Order Info: [id number] - LIPID Order Info: [id number] - TSH Performed By: #### L 501.9520, L500.2500, L500.4100 #### [facility] [address], [address] Triglycerides measurementOrd ered By: Luke Navarro on 09-21-2024 Triglyceride [Mass/Vol] 148 mg/dL <199 [facility] Comment on above: The drugs N-Acetylcy steine and Metamizole may falsely depress this assay. Normal range: <150 mg/dLBorderline High: 150-199 mg/dLHigh: 200-499 mg/dLVery High: >500 mg/dL No Panel InformationOrdered By: Jairo Navarro on 03-23-2023 Vitamin D 25-Hydroxy 50.0 ng/mL [facility] Comment on above: Vitamin D 25(OH) Sta tus Range Deficiency <20 ng/mL (50nmol/L) Insufficiency 20 - 30 ng/mL (50 - 75 nmol/L) Sufficiency 30 - 100 ng/mL (75 - 250 nmol/L) Toxicity >100 ng/mL (>250 nmol/L) Basophil percentageon 2021 Bilirubin [Mass/Vol] 1.40 mg/dL 0.20-1.00 [facility] Work Phone: Comment on above: For patients on eltr ombopag therapy, use of Dimension [place] TBIL is not recommended. Chloride [Moles/Vol] 105 mmol/L 98-107 [facility] Work Phone: Cholesterol [Mass/Vol] 246 mg/dL <200 [facility] Work Phone: Comment on above: <200 mg/dL Desirable 200-240 mg/dL Borderline >240 mg/dL High Risk Glucose [Mass/Vol] 88 mg/dL 74-106 [facility] Work Phone: Potassium [Moles/Vol] 4.0 mmol/L 3.5-5.1 [facility] Work Phone: Protein [Mass/Vol] 8.0 g/dL 6.4-8.2 [facility] Work Phone: Sodium [Moles/Vol] 141 mmol/L 136-145 [facility] Work Phone: Triglyceride [Mass/Vol] 178 mg/dL <199 [facility] Work Phone: Comment on above: The drugs N-Acetylcy steine and Metamizole may falsely depress this assay.Serum Triglycerides Reference Interval Normal <150 mg/dL Borderline high 150 - 199 mg/dL High 200 - 499 mg/dL Very High > or = 500 mg/dL Laboratory - Chemistry and C hemistry - challengeon 01-22-2022 ALP [Catalytic activity/Vol] 74 U/L 45-117 [facility] Work Phone: ALT [Catalytic activity/Vol] 21 U/L 13-56 [facility] Work Phone: CO2 [Moles/Vol] 27.0 mmol/L 21.0-32.0 [facility] Work Phone: Free T4 [Mass/Vol] 1.01 ng/dL 0.76-1.46 [facility] Work Phone: [phone] Globulin (S) [Mass/Vol] 3.6 g/dL 2.2-4.2 [facility] Work Phone: [phone] Urea nitrogen/Creatinine [Mass ratio] 22.0 mg/mg 10-20 [facility] Work Phone: No Panel Informationon 01-22 Estimated GFR (MDRD) Amer 83 mL/min >60 [facility] Work Phone: Comment on above: GFR Calc Estimated GFR (MDRD) Non-Af Amer 69 mL/min >60 [facility] Work Phone: Comment on above: Non- GFR Calc Thyroid Stimulating Hormone (TSH) 3.82 uIU/mL 0.358-3.74 [facility] Work Phone: Vitamin D 25-Hydroxy 47.7 ng/mL [facility] Work Phone: Comment on above: Vitamin D 25(OH) Sta tus Range Deficiency <20 ng/mL (50nmol/L) Insufficiency 20 - 30 ng/mL (50 - 75 nmol/L) Sufficiency 30 - 100 ng/mL (75 - 250 nmol/L) Toxicity >100 ng/mL (>250 nmol/L) Serum or plasma albumin junito urement (mass/volume)on 01-22-2022 Albumin [Mass/Vol] 4.4 g/dL 3.2-5.0 [facility] Work Phone: Serum or plasma albumin/glob ulin mass ratioon 01-22-2022 Albumin/Globulin [Mass ratio] 1.2 {ratio} 0.9-2.4 [facility] Work Phone: Serum or plasma calcium junito urement (mass/volume)on 01-22-2022 Calcium [Mass/Vol] 9.7 mg/dL 8.5-10.1 [facility] Work Phone: Serum or plasma cholesterol in HDL measurement (mass/volume)on 01-22-2022 Cholesterol in HDL [Mass/Vol] 64 mg/dL >40 [facility] Work Phone: Comment on above: The drugs N-Acetylcy steine and Metamizole may falsely depress this assay. Reference Range HDL <40 mg/dL Low HDL Cholesterol HDL >or= 60 mg/dL High HDL Cholesterol Serum or plasma cholesterol in VLDL measurement (mass/volume)on 01-22-2022 Cholesterol in VLDL [Mass/Vol] 36 mg/dL 5-40 [facility] Work Phone: Serum or plasma creatinine m easurement (mass/volume)on 01-22-2022 Creatinine [Mass/Vol] 0.86 mg/dL 0.55-1.02 [facility] Work Phone: Comment on above: The validity of the calculated GFR & GFRAA in patients over 70 years has not been determined. Clinical correlation is essential. Serum or plasma low density lipoprotein (LDL) cholesterol measurement (mass/volume)on 01-22-2022 Cholesterol in LDL [Mass/Vol] 146 mg/dL 0-130 [facility] Work Phone: Serum or plasma urea nitroge n measurement (mass/volume)on 01-22-2022 Urea nitrogen [Mass/Vol] 19 mg/dL 7-18 [facility] Work Phone: Thin prep Papanicolaou smear with manual screeningon 01-22-2022 Thin prep Papanicolaou smear with manual screening 19 U/L 15-37 [facility] Work Phone: Thin prep Papanicolaou smear with manual screening 9 5-15 [facility] Work Phone: Thin prep Papanicolaou smear with manual screening < 5.0 mg/L NO RANGE EST. [facility] Work Phone: Vital Signs Date Time Vital Sign Value Performing Clinician Faci lity 05-16-2025 08:38-0400 Body height 154.[address] Luke Navarro MD Work Phone: [facility] 05-16-2025 08:38-0400 Body mass index (BMI) [Ratio] 29.5 kg/m2 Dr. Luke Navarro MD Work Phone: [facility] 05-16-2025 08:38-0400 Body weight 70.[address] Luke Navarro MD Work Phone: [facility] 05-16-2025 08:38-0400 Diastolic blood pressure 77 mm[Hg] Dr. Luke Navarro MD Work Phone: [facility] 05-16-2025 08:38-0400 Heart rate 65 /min Dr. Luke Navarro MD Work Phone: [facility] 05-16-2025 08:38-0400 Systolic blood pressure 127 mm[Hg] Dr. Luke Navarro MD Work Phone: [facility] 05-09-2025 12:59-0400 Body mass index (BMI) [Ratio] 29.5 kg/m2 Dr. Luke Navarro MD Work Phone: 0(947)784-961717 [place] [address] 05-09-2025 12:59-0400 Body weight 70.[address] Luke Navarro MD Work Phone: 6(955)900-932217 [place] [address] 05-09-2025 12:59-0400 Diastolic blood pressure 80 mm[Hg] Dr. Luke Navarro MD Work Phone: 8(916)780-348417 [place] [address] 05-09-2025 12:59-0400 Systolic blood pressure 129 mm[Hg] Dr. Luke Navarro MD Work Phone: 5(770)111-097917 [place] [address] 04-26-2025 13:08-0400 Body height 154.[address] Luke Navarro MD Work Phone: 4(832)247-157617 [place] [address] 04-26-2025 13:08-0400 Body mass index (BMI) [Ratio] 30 kg/m2 Dr. Luke Navarro MD Work Phone: 7(976)262-565217 [place] [address] 04-26-2025 13:08-0400 Body weight 72.[address] Luke Navarro MD Work Phone: 9(118)794-930017 [place] [address] 04-26-2025 13:08-0400 Diastolic blood pressure 66 mm[Hg] Dr. Luke Navarro MD Work Phone: 1(224)981-862317 [place] [address] 04-26-2025 13:08-0400 Systolic blood pressure 145 mm[Hg] Dr. Luke Navarro MD Work Phone: 9(593)595-894217 [place] [address] 04-23-2025 11:52-0400 Body height 154.[address] Luke Navarro MD Work Phone: 6(985)005-738517 [place] [address] 04-23-2025 11:52-0400 Body mass index (BMI) [Ratio] 30.4 kg/m2 Dr. Luke Navarro MD Work Phone: 5(269)853-924217 [place] [address] 04-23-2025 11:52-0400 Body weight 73.[address] Luke Navarro MD Work Phone: 1(338)579-801317 [place] [address] 04-23-2025 11:52-0400 Diastolic blood pressure 75 mm[Hg] Dr. Luke Navarro MD Work Phone: 4(720)866-797317 [place] [address] 04-23-2025 11:52-0400 Heart rate 65 /min Dr. Luke Navarro MD Work Phone: 9(581)298-251717 [place] [address] 04-23-2025 11:52-0400 Systolic blood pressure 136 mm[Hg] Dr. Luke Navarro MD Work Phone: 5(547)094-293417 [place] [address] 04-17-2025 14:33-0400 Body mass index (BMI) [Ratio] 30.4 kg/m2 Dr. Luke Navarro MD Work Phone: 3(859)692-346417 [place] [address] 04-17-2025 14:33-0400 Body temperature 97.9 [degF] Dr. Luke Navarro MD Work Phone: 0(897)041-525517 [place] [address] 04-17-2025 14:33-0400 Body weight 73.[address] Luke Navarro MD Work Phone: 9(517)532-359517 [place] [address] 04-17-2025 14:33-0400 Diastolic blood pressure 80 mm[Hg] Dr. Luke Navarro MD Work Phone: 3(076)804-327317 [place] [address] 04-17-2025 14:33-0400 Heart rate 70 /min Dr. Luke Navarro MD Work Phone: 0(142)569-330917 [place] [address] 04-17-2025 14:33-0400 Systolic blood pressure 128 mm[Hg] Dr. Luke Navarro MD Work Phone: 6(169)025-533017 [place] [address] 04-13-2025 13:43-0400 Body mass index (BMI) [Ratio] 30.4 kg/m2 Dr. Luke Navarro MD Work Phone: 8(511)596-276417 [place] [address] 04-13-2025 13:43-0400 Body weight 73.[address] Luke Navarro MD Work Phone: 6(877)326-575617 [place] [address] 04-13-2025 13:43-0400 Diastolic blood pressure 75 mm[Hg] Dr. Luke Navarro MD Work Phone: 9(583)829-245017 [place] [address] 04-13-2025 13:43-0400 Heart rate 66 /min Dr. Luke Navarro MD Work Phone: 8(096)127-269817 [place] [address] 04-13-2025 13:43-0400 Systolic blood pressure 127 mm[Hg] Dr. Luke Navarro MD Work Phone: 9(037)922-341917 [place] [address] 03-06-2025 11:17-0400 Body height 154.[address] Luke Navarro MD Work Phone: 6(548)294-972517 [place] [address] 03-06-2025 11:17-0400 Body mass index (BMI) [Ratio] 30.1 kg/m2 Dr. Luke Navarro MD Work Phone: 9(231)427-064217 [place] [address] 03-06-2025 11:17-0400 Body weight 72.[address] Luke Navarro MD Work Phone: 4(390)381-206917 [place] [address] 03-06-2025 11:17-0400 Diastolic blood pressure 77 mm[Hg] Dr. Luke Navarro MD Work Phone: 2(064)596-586917 [place] [address] 03-06-2025 11:17-0400 Systolic blood pressure 138 mm[Hg] Dr. Luke Navarro MD Work Phone: 4(435)794-186617 [place] [address] 01-25-2023 13:26-0400 Body height 154.[address] Jairo Navarro Work Phone: 5(245)006-049317 [place] [address] 01-25-2023 13:20-0400 Body mass index (BMI) [Ratio] 30.4 kg/m2 Dr. Jairo Navarro Work Phone: 4(129)269-858217 [place] [address] 01-25-2023 13:20-0400 Body weight 73.[address] Jairo Navarro Work Phone: 3(194)855-063717 [place] [address] 01-25-2023 13:20-0400 Diastolic blood pressure 72 mm[Hg] Dr. Jairo Navarro Work Phone: 2(187)498-655017 [place] [address] 01-25-2023 13:20-0400 Systolic blood pressure 138 mm[Hg] Dr. Jairo Navarro Work Phone: [facility] 10-06-2022 12:270400 Body height 154.94 cm [facility] Encounters Encounter Date Encounter Type Care Provider Facility Start: 05-25-2025 ambulatory Luke Navarro Faci lity:[facility] Start: 05-24-2025 Encounter for other preprocedural examination India Silverman [facility] Start: 05-16-2025 End: 05-16-2025 ambulatory Latasha Ceballos Facility:[facility] [place] Start: 05-09-2025 End: 05-09-2025 Patient encounter procedure Carli Wayne NP-C -Laboratory Specimen Work Phone: Start: 05-09-2025 End: 05-09-2025 Patient encounter procedure Carli Wayne CANE FLUME WATCHER-[facility] Work Phone: Start: 05-09-2025 End: 05-09-[address] Luke Navarro MD Work Phone: -[facility] Start: 05-09-2025 End: 05-09-2025 ambulatory Carli Wayne CANE FLUME WATCHER Facility:[facility] Start: 05-02-2025 End: 05-02-[address] India Silverman MD -Ultrasound [facility] Work Phone: Start: 05-02-2025 End: 05-02-2025 ambulatory Luke Navarro Facility:[facility] Start: 04-26-2025 End: 04-26-[address] India Silverman MD -[facility] Work Phone: Start: 04-26-2025 End: 04-26-[address] Luke Navarro MD Work Phone: -[facility] Start: 04-23-2025 End: 04-23-[address] Latasha Ceballos MD -[facility] Work Phone: Start: 04-23-2025 End: 04-23-[address] Luke Navarro MD Work Phone: -[facility] Start: 04-17-2025 End: 04-17-[address] Latasha Ceballos MD -[facility] Work Phone: Start: 04-17-2025 End: 04-17-[address] Luke Navarro MD Work Phone: [facility] Start: 04-13-2025 End: 04-13-[address] Latasha Ceballos MD -[facility] Work Phone: Start: 04-13-2025 End: 04-13-[address] [facility] Navarro MD Work Phone: [facility] Start: 03-06-2025 End: 03-06-2025 Patient encounter procedure Carli Peck CANE FLUME WATCHER-C -[facility] Work Phone: Start: 03-06-2025 End: 03-06-2025 Patient encounter status Carli Bonetings CANE FLUME WATCHER-C [facility] Start: 03-06-2025 End: 03-06-[address] Luke Navarro MD Work Phone: [facility] Start: 10-05-2024 Encounter for genera l adult medical examination without abnormal findings Luke Navarro [facility] Start: 09-21-2024 End: 09-21-[address] Luke Navarro MD Work Phone: [facility] Work Phone: Start: 09-21-2024 End: 09-21-[address] Luke Navarro MD -[facility] Work Phone: Start: 09-21-2024 End: 09-21-2024 ambulatory Luke Navarro Facility:[facility] Start: 05-10-2023 End: 05-10-[address] Jairo Navarro Work Phone: [facility] Work Phone: Start: 05-10-2023 End: 05-10-[address] Jairo Navarro Work Phone: [facility] Work Phone: Start: 03-23-2023 End: 03-23-[address] Jairo Navarro Work Phone: [facility] Work Phone: Start: 03-23-2023 End: 03-23-[address] Jairo Navarro Work Phone: [facility] Start: 01-25-2023 End: 01-25-[address] Jairo Navarro Work Phone: [facility] Work Phone: Start: 10-06-2022 End: 10-06-2022 ambulatory [facility] Work Phone: Start: 10-06-2022 End: 10-06-2022 Patient encounter procedure [facility]patient [facility] Start: 01-22-2022 End: 01-22-2022 Patient encounter procedure [facility] Procedures Date Procedure Procedure Detail Performing Clinician Start: 05-02-[address] Jazzmine Navarro MD Work Phone: Start: 05-10-2023 Radiologic examinati on of knee Dr. Jairo Navarro Work Phone: Plan of Treatment Date Care Activity Detail Author Start: 05-16-2025 End: 05-16-2025 Patient encounter procedure Atrophic vaginitis -[facility] Work Phone: Start: 04-23-2025 End: 04-23-2025 Patient encounter procedure Atrophic vaginitis -[facility] Work Phone: Start: 04-17-2025 Complex cystometrogram [facility] Start: 04-17-2025 End: 04-17-2025 Patient encounter procedure Cystocele with incomplete uterovaginal prolapse -[facility] Work Phone: Start: 10-06-2022 Dual energy X-ray absorptiometry Dexa Bone Density Study [facility] Payers Date Payer Category Payer Medicare [id number] 2024 Self-pay [id number] Unknown [id number] Unknown [id number] Unknown [id number] 2.16.8 [id number] Unknown [id number] 2.16.8 [id number] Unknown [id number] 2.16.8 [id number] Unknown [id number] 2.16.8 [id number] Unknown [id number] 2.16.8 [id number] Unknown [id number] 2.16.8 [id number] Unknown [id number] 2.16.8 [id number] Unknown [id number] 2.16.8 [id number] Unknown [id number] 2.16.8 [id number] Unknown [id number] 2.16.8 [id number] Unknown [id number] 2.16.8 [id number] Social History Date Type Detail Facility Start: 10-21-2020 End: 01-25-2023 Tobacco smoking status NHIS Unknown if ever smoked [facility] Start: 1950 Sex Assigned At Female [facility] Start: 01-25-2023 End: 05-14-2025 Tobacco smoking status NHIS Ex-smoker (finding) [facility] Start: 10-05-2024 Sex Female (finding) [facility] Sex Female [facility] Clinical Notes 03-06-2025 to 05-09-2025 Note Date & Type Note Facility 05-09-2025 Progress note [facility] 04-23-2025 Progress note [facility] 04-13-2025 Progress note [facility] 04-13-2025 Progress note Note Date/Time April 13, 2025 2:14pm [facility] [address], [address] [place] [address] OFFICE VISIT Date of Service: 04/13/25 MR#: [id number] Acct: [id number] Name: MERLYN LOWE Rep #: [id number] : 1950 Provider: Dr. Juan Ceballos MD Age/Sex: 74/F Location: [facility] Status: Signed Intake Vital Signs 03/06/25 11:17 04/13/25 13:43 Height 5 ft 1 in 5 ft 1 in Weight: 159 lb 6 oz 161 lb BMI 30.1 30.4 BP 138/77 H 127/75 H Pulse 66 Intake Visit Reasons: prolapse. 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 Accompanied by: Self Is patient in pain?: No Allergies No Known Allergies Allergy (Verified 04/13/25 13:43) Medications ?Medication ?Instructions ?Recorded ?Confirmed ?Type amlodipine 10 mg tablet (Norvasc) 10 mg PO DAILY 08/2204/13/25 History cholecalciferol (vitamin D3) 125 125 mcg PO DAILY 07/2704/13/25 History mcg (5,000 unit) capsule pravastatin 40 mg tablet 40 mg PO DAILY 08/22/2003/26 History ascorbate calcium (vitamin C) 500 500 mg PO DAILY 08/2704/13/25 History mg tablet hydrochlorothiazide 12.5 mg tablet 12.5 mg PO DAILY ID N 09/17/20 04/13/25 History levothyroxine 25 mcg capsule 50 mcg PO DAILY 01/25/23 04/13/25 History estradiol 0.01% (0.1 mg/gram) See Rx Instructions vagi nal 03/06/25 04/13/25 Rx vaginal cream .COMPLEX #42.5 grams calcium carbonate (Calcium 600) 600 mg PO QDAY 5 04/13/25 History Have you fallen in the past year?: No Nurse's Note: Bladder scan PVR:0cc PFSH Medical History (Updated 04/13/25 @ 14:[address] 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 U[facility] Chief Complaint: new patient for prolapse combo surgery Details: MERLYN LOWE, is a 74 F. She is here for evaluation and management of pelvic organ prolapse. This has been gradually increasing over the last 3 or so years. She is voiding 3-4 times during the day, 2 times at night. There is no urge incontinence where she cannot make it to the bathroom. There is no stress incontinence with cough, laugh, sneeze, lifting, etc. She has had no urinary tract infections in the last year. She has been using vaginal estrogen cream for the last 3 years. She has not had visible blood in her urine. She is not sexually active because the prolapse is in the way. She has the following issues with chronic bowel function: constipation, trouble emptying but is not splinting to defecate. She is using fiber supplements, stoolsofteners etc as needed. There is no pelvic pain. She has a history of smoking. She quit 20yrs ago. There is no history of blood clots or easy bleeding. There is a family history of breast cancer in her mom. ROS Const Constitutional: No chills, fatigue, fever(s), headache(s), night sweats, weakness, weight change, abnormal sleep pattern or change in appetite Eyes Eyes: No change in vision ENT ENT: No headache(s) or dry mouth Resp Respiratory: No cough, chest congestion, shortness of breath or wheezing Cardio Cardiology: Positive for other (No chest pain.); No shortness of breath, irregular heart rhythm or lightheadedness Gastro GI: Positive for constipation and other (No nausea.); No abdominal pain, change in bowel habits, diarrhea or vomiting Musc Musculoskeletal: No abnormal gait Skin Skin: No yellowing of the eye, lesions, itchy eyes, rash or skin ulcer Neuro Neurology: No abnormal gait, confusion, dizziness, weakness, headache(s) or memory loss Psych Psychiatric: No abnormal sleep pattern, No change in appetite, No confusion and No memory loss Endo Endocrine: No fatigue, increased thirst/drinking or weight change Aller/Imm Allergy/Immunologic: No itchy eyes or wheezing Kwasi/Lymp Hematologic/Lymphatic: No easy bleeding, easy bruising or enlarged lymph nodes Exam Const General: cooperative, healthy appearing, comfortable and no acute distress [facility] Head: normocephalic and atraumatic Ears: hearing grossly normal bilaterally and external ears normal Nose: external nose normal Eyes General: appearance normal, both eyes and all related structures Neck Neck: normal visual inspection and trachea midline Chest Chest palpation & inspection: normal inspection of the chest Resp Effort & Inspection: normal respiratory effort, able to speak in complete sentences and symmetric chest movement Cardio Rate: regular rate GI Inspection: normal to inspection Palpation: soft and nontender General: No CVA tenderness Skin General: no rashes or lesions noted Neuro General: patient alert, patient awake, patient oriented x3 and CN's II-XI intactbilaterally Extrem General: normal to inspection Psych Appearance: grossly normal and well kempt Mental Status: mental status grossly normal Office Procedures Post Void Residual Post Void Residual: 0cc Results POC UA Auto w/o Microscopy Office Urine Color Last Edit by Monik Chavez on 04/13/25 13:49 Office Urine Clarity Last Edit by Monik Chavez on 04/13/25 13:49 Office Urine Glucose Negative Last Edit by Monik Chavez on 04/13/25 13:4 9 Office Urine Ketones Negative Last Edit by Monik Chavez on 04/13/25 13:4 9 Office Urine Bilirubin Negative Last Edit by Monik Chavez on 04/13/25 13 :49 Office Urine Urobilinogen Negative Last Edit by Monik Chavez on 04/13/25 13:49 Off Ur Spec Fritch 1.010 Last Edit by Monik Chavez on 04/13/25 13:49 Office Urine pH 6.5 Last Edit by Monik Chavez on 04/13/25 13:49 Office Urine Protein Trace Last Edit by Monik Chavez on 04/13/25 13:49 Office Urine Blood Negative Last Edit by Monik Chavez on 04/13/25 13:49 Office Urine Blood Hemolyzed Negative Last Edit by Monik Chavez on 04/13 13:49 Office Urine Nitrate Negative Last Edit by Monik Chavez on 04/13/25 13:4 9 Off Ur Leukocytes Negatve Last Edit by Monik Chavez on 04/13/25 13:49 Supplemental Info 45 minutes were spend in record review, history and physical exam, discussion ofoptions, development of a plan, and documentation for this appointment today. Coding Level of Care Code Off vis,new,level 4 Diagnoses Cystocele with incomplete uterovaginal prolapse N81.2 Atrophic vaginitis N95.2 Urethral caruncle N36.2 Nocturia R35.1 Assessment and Plan Assessment and Plan (1) Cystocele with incomplete uterovaginal prolapse: Status: Acute Comment: worsening. at introitus:plan surgical intervention SM and HW (2) Atrophic vaginitis: Status: Acute Comment: estradiol cream 3 nights a week (3) Urethral caruncle: Status: Acute (4) Nocturia: Status: Acute Orders: Orders POC UA Auto w/o Microscopy Today N81.2 - Incomplete uterovaginal prolapse PVR Today R35.1 - Nocturia Plan cystoscopy and pelvic exam, risks discussed 2 UDS continue estrogen cream schedule block time for surgery aggressive bowel management Clinical Quality Measures Falls Risk Screening/Assistive Devices Have you fallen in the past year?: No 04/13/25 1414 <Electronically signed by Latasha Ceballos MD> Date _ Latasha Ceballos MD Cosigner Signature: Date (if applicable) CC: ~ [facility] Work Phone: 1(201) 142-326808-12-2025 Evaluation note* Diagnosis Onset Date Resolution Status Admit Date Atrophic vaginitis acute March 06, 2025 11:16am Cystocele with incomplete uterovaginal prolapse acute February 11:16am Encounter for routine gynecological examination noneactive March 06, 2025 11:16am Atrophic vaginitis acute Septem 2024 1:29pm Cystocele with incomplete uterovaginal prolapse acute April 13, 2025 1:29pm Nocturia acute March 1:29pm Urethral caruncle acute Septemb er 2024 1:29pm Cystocele with incomplete uterovaginal prolapse acute April 17, 2025 12:59pm Atrophic vaginitis acute Septem 2024 11:35am Constipation acute April 232024 11:35am Cystocele with incomplete uterovaginal prolapse acute April 23, 2025 11:35am Nocturia acute March 11:35am Stress incontinence acute Septe [facility] 2024 11:35am Urethral caruncle acute Septemb er 2024 11:35am [employer] [facility] Work Phone: 1(324) 188-156708-12-2025 Evaluation note* Diagnosis Onset Date Resolution Status Admit Date Atrophic vaginitis acute March 06, 2025 11:16am Cystocele with incomplete uterovaginal prolapse acute February 11:16am Encounter for routine gynecological examination noneactive March 06, 2025 11:16am Atrophic vaginitis acute Sept2024 1:29pm Cystocele with incomplete uterovaginal prolapse acute April 13, 2025 1:29pm Nocturia acute March 1:29pm Urethral caruncle acute Septemb er 2024 1:29pm Cystocele with incomplete uterovaginal prolapse acute April 17, 2025 12:59pm Atrophic vaginitis acute Septem 2024 11:35am Constipation acute April 232024 11:35am Cystocele with incomplete uterovaginal prolapse acute April 23, 2025 11:35am Nocturia acute March 11:35am Stress incontinence acute Septe [facility] 2024 11:35am Urethral caruncle acute Septemb er 2024 11:35am Atrophic vaginitis acute Oct r 2024 12:58pm Cystocele with incomplete uterovaginal prolapse acute April 12:58pm [employer] Work Phone: 1(960) 975-256208-12-2025 Evaluation note* Diagnosis Onset Date Resolution Status Admit Date Atrophic vaginitis acute March 06, 2025 11:16am Cystocele with incomplete uterovaginal prolapse acute February 11:16am Encounter for routine gynecological examination noneactive March 06, 2025 11:16am Atrophic vaginitis acute Septem 2024 1:29pm Cystocele with incomplete uterovaginal prolapse acute April 13, 2025 1:29pm Nocturia acute March 1:29pm Urethral caruncle acute Septemb er 2024 1:29pm Atrophic vaginitis acute Septem 2024 12:59pm Constipation acute April 172024 12:59pm Cystocele with incomplete uterovaginal prolapse acute April 17, 2025 12:59pm Nocturia acute March 12:59pm Stress incontinence acute Septe er 2024 12:59pm Urethral caruncle acute Septemb er 2024 12:59pm Atrophic vaginitis acute Septem enrique 2024 11:35am Constipation acute April 232024 11:35am Cystocele with incomplete uterovaginal prolapse acute April 23, 2025 11:35am Nocturia acute March 11:35am Stress incontinence acute Septe mber 2024 11:35am Urethral caruncle acute Septemb er 2024 11:35am Atrophic vaginitis acute Octobe r 2024 12:58pm Cystocele with incomplete uterovaginal prolapse acute April 12:58pm Atrophic vaginitis acute Octobe r 2024 12:56pm Cystocele with incomplete uterovaginal prolapse acute May 092024 12:56pm Urethral caruncle acute May 09, 2025 12:56pm Atrophic vaginitis acute Octobe r 2024 8:27am Constipation acute April 8:27am Cystocele with incomplete uterovaginal prolapse acute May 162024 8:27am Nocturia acute May 16, 2025 8:27am Stress incontinence acute Octob er 2024 8:27am Urethral caruncle acute May 16, 2025 8:27am [employer] Work Phone: Evaluation noteNo assessment information available [facility] Work Phone: Evaluation note* Diagnosis Onset Date Resolution Status Atrophic vaginitis acute Cystocele with incomplete uterovaginal prolapse acute Urethral caruncle acute Routine gynecological examination noneactive [facility] Work Phone: Evaluation note* Diagnosis Onset Date Resolution Status Admit Date Atrophic vaginitis acute March 06, 2025 11:16am Cystocele with incomplete uterovaginal prolapse acute February 11:16am Encounter for routine gynecological examination noneactive March 06, 2025 11:16am [employer] [facility] Work Phone: Progress note Author Latasha Ceballos [facility] Note Date/Time April 23, 2025 12:12pm [facility] [address], [address] [place] [address] OFFICE VISIT Date of Service: 04/23/25 MR#: [id number] Acct: [id number] Name: MERLYN LOWE Rep #: [id number] : 1950 Provider: Dr. 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 Required: No Accompanied by: self Is patient in pain?: No Allergies No Known Allergies Allergy (Verified 04/23/25 11:52) Medications ?Medication ?Instructions ?Recorded ?Confirmed ?Type amlodipine 10 mg tablet (Norvasc) 10 mg PO DAILY 08/2204/23/25 History cholecalciferol (vitamin D3) 125 125 mcg PO DAILY 07/2704/23/25 History mcg (5,000 unit) capsule pravastatin 40 mg tablet 40 mg PO DAILY 08/22/2003/27 History ascorbate calcium (vitamin C) 500 500 mg PO DAILY 08/2704/23/25 History mg tablet hydrochlorothiazide 12.5 mg tablet 12.5 mg PO DAILY ID N 09/17/20 04/23/25 History levothyroxine 25 mcg capsule 50 mcg PO DAILY 01/25/23 04/23/25 History estradiol 0.01% (0.1 mg/gram) See Rx Instructions vagi nal 03/06/25 04/23/25 Rx vaginal cream .COMPLEX #42.5 grams calcium carbonate (Calcium 600) 600 mg PO QDAY 5 04/23/25 History Have you fallen in the past year?: No PFSH Medical History (Updated 04/23/25 @ 12:[address] 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 Chief Complaint: cysto and pelvic exam Details: MERLYN LOWE, is a 74 F. She is here for cystoscopy and pelvic exam today. She has no sign of acute urinary tract infection today. She denies hematuria. Questions regarding the procedure were answered and she gives consent to proceed. She is using the estrogen cream. She has been struggling with constipation since she started calcium. We discussed options. She is tentatively scheduled for surgery 05/25/25. She is seeing gynecology later this week. ROS Const Constitutional: No chills, fatigue, fever(s), headache(s), night sweats, weakness, weight change, abnormal sleep pattern or change in appetite Eyes Eyes: No change in vision ENT ENT: No headache(s) or dry mouth Resp Respiratory: No cough, chest congestion, shortness of breath or wheezing Cardio Cardiology: Positive for other (No chest pain.); No shortness of breath, irregular heart rhythm or lightheadedness Gastro GI: Positive for change in bowel habits, constipation and other (No nausea.); No abdominal pain, diarrhea or vomiting Musc Musculoskeletal: No abnormal gait Skin Skin: No yellowing of the eye, lesions, itchy eyes, rash or skin ulcer Neuro Neurology: No abnormal gait, confusion, dizziness, weakness, headache(s) or memory loss Psych Psychiatric: No abnormal sleep pattern, No change in appetite, No confusion and No memory loss Endo Endocrine: No fatigue, increased thirst/drinking or weight change Aller/Imm Allergy/Immunologic: No itchy eyes or wheezing Kwasi/Lymp Hematologic/Lymphatic: No easy bleeding, easy bruising or enlarged lymph nodes Exam Const General: cooperative, healthy appearing, comfortable and no acute distress HENMT Head: normocephalic and atraumatic Ears: hearing grossly normal bilaterally and external ears normal Nose: external nose normal Eyes General: appearance normal, both eyes and all related structures Neck Neck: normal visual inspection and trachea midline Chest Chest palpation & inspection: normal inspection of the chest Resp Effort & Inspection: normal respiratory effort, able to speak in complete sentences and symmetric chest movement Cardio Rate: regular rate GI Inspection: normal to inspection Palpation: soft and nontender General: No CVA tenderness External Female Exam: normal external appearance and lesion Urethra: lesion caruncle Speculum Exam - Vagina: no lesions Bimanual Exam- Adnexa, other: No rectocele, cystocele (stage 2) and vaginal apexdescent Recto-Vaginal: other (no stool in rectal vault) Pelvic Support: cystocele (stage 2), no retocele noted and vaginal apex descent OB/External & Speculum: No vaginal discharge Speculum Exam: no vaginal discharge Skin General: no rashes or lesions noted Neuro General: patient alert, patient awake, patient oriented x3 and CN's II-XI intactbilaterally Extrem General: normal to inspection Psych Appearance: grossly normal and well kempt Mental Status: mental status grossly normal Office Procedures Cystoscopy Procedure Completed: Yes Cystoscopy: The patient was placed into dorsal lithotomy position, and was cleaned in usual sterile fashion. The urethra was anesthetized with 2% lidocaine jelly. The cystoscope was inserted through the urethra under direct visualization. No urethral abnormalities were detected. The bladder in its entirety was inspected.The ureteral orifices were identified bilaterally in correct anatomic position. The following were identified: no mass, erythema, ulceration or foreign body. The cystoscope was removed, and the procedure was terminated. The patient tolerated the procedure well without complication or difficulty. Results POC UA Auto w/o Microscopy Office Urine Color Last Edit by Monik Chavez on 04/23/25 11:57 Office Urine Clarity Last Edit by Monik Chavez on 04/23/25 11:57 Office Urine Glucose Negative Last Edit by Monik Chavez on 04/23/25 11:5 7 Office Urine Ketones Negative Last Edit by Monik Chavez on 04/23/25 11:5 7 Office Urine Bilirubin Negative Last Edit by Monik Chavez on 04/23/25 11 :57 Office Urine Urobilinogen 0.2 mg/dL Last Edit by Monik Chavez on 5 11:57 Off Ur Spec Fritch 1.005 Last Edit by Monik Chavez on 04/23/25 11:57 Office Urine pH 7 Last Edit by Monik Chavez on 04/23/25 11:57 Office Urine Protein Trace Last Edit by Monik Chavez on 04/23/25 11:57 Office Urine Blood Negative Last Edit by Monik Chavez on 04/23/25 11:57 Office Urine Blood Hemolyzed Negative Last Edit by Monik Chavez on 04/23 11:57 Office Urine Nitrate Negative Last Edit by Monik Chavez on 04/23/25 11:5 7 Off Ur Leukocytes Positive Last Edit by Monik Chavez on 04/23/25 11:57 leuks 15 Supplemental Info The urodynamics were reviewed and discussed with the patient. The bladder capacity is small. There is no urge incontinence. There is stress incontinence with the leak point pressure below 100. There is minimal increase in the EMG of the pelvic floor during the voiding phase. There is a good detrusor contraction during the voiding phase. There is no elevation of the post void residual. Coding Level of Care Code No Charge Diagnoses Cystocele with incomplete uterovaginal prolapse N81.2 Atrophic vaginitis N95.2 Urethral caruncle N36.2 Nocturia R35.1 Stress incontinence N39.3 Constipation K59.00 Assessment and Plan Assessment and Plan (1) Cystocele with incomplete uterovaginal prolapse: Status: Acute (2) Atrophic vaginitis: Status: Acute Comment: estradiol cream 3 nights a week (3) Urethral caruncle: Status: Acute (4) Nocturia: Status: Acute (5) Stress incontinence: Status: Acute (6) Constipation: Status: Acute Orders: Orders POC UA Auto w/o Microscopy Today R35.1 - Nocturia Cysto Today N81.2 - Incomplete uterovaginal prolapse Plan continue estrogen cream aggressive management of constipation we discussed post operative expectations and long term care administrator lifting restrictions of 10 pounds will continue plans for intervention, anterior repair, possible sacrospinous ligament fixation with midurethral sling, cystoscopy and bilateral ureteral catehterization Clinical Quality Measures Falls Risk Screening/Assistive Devices Have you fallen in the past year?: No 04/23/25 1762 <Electronically signed by Latasha Ceballos MD> Date _ Latasha Herndon Signature: Date (if applicable) CC: ~ [facility] Work Phone: Progress note Author Carli Wayne [facility] Note Date/Time May 09, 2025 1 :17pm [facility] [address], [facility] [address] [place] [address] OFFICE VISIT Date of Service: 05/09/25 MR#: [id number] Acct: [id number] Name: LOUISMERLYN SEALS Rep #: [id number] : 1950 Provider: VIBHA Wayne Age/Sex: 74/F [place] [facility] [place] Status: Signed Intake Vital Signs 04/26/25 13:08 05/09/25 12:59 05/09/25 13:03 Height 5 ft 1 in 5 ft 1 in 5 ft 1 in Weight: 159 lb 156 lb 6 oz BMI 30.0 29.5 BP 145/66 H 129/80 H Intake Visit Reasons: EMB prior to surgery 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 Required: No Is patient in pain?: No Allergies No Known Allergies Allergy (Verified 05/09/25 13:06) Medications ?Medication ?Instructions ?Recorded ?Confirmed ?Type amlodipine 10 mg tablet (Norvasc) 10 mg PO DAILY 08/2205/09/25 History cholecalciferol (vitamin D3) 125 125 mcg PO DAILY 07/2705/09/25 History mcg (5,000 unit) capsule pravastatin 40 mg tablet 40 mg PO DAILY 08/22/2004/25 History ascorbate calcium (vitamin C) 500 500 mg PO DAILY 08/2705/09/25 History mg tablet hydrochlorothiazide 12.5 mg tablet 12.5 mg PO DAILY ID N 09/17/20 05/09/25 History levothyroxine 25 mcg capsule 50 mcg PO DAILY 01/25/23 05/09/25 History estradiol 0.01% (0.1 mg/gram) See Rx Instructions vagi nal 03/06/25 05/09/25 Rx vaginal cream .COMPLEX #42.5 grams calcium carbonate (Calcium 600) 600 mg PO QDAY 5 05/09/25 History Vitamin E PO 04/26/25 05/09/25 History coenzyme Q10 10 mg capsule (Co 10 mg PO QDAY 04/26/25 05/09/25 History Q-10) folate PO 04/26/25 05/09/25 History Is last menstrual period known: No Post menopausal: Yes Patient : No : No PFSH PFSH Medical History Constipation Stress incontinence Nocturia High cholesterol Hypertension Arthritis Allergies Pure hypercholesterolemia Vitamin D deficiency Osteopenia Hypothyroid Surgical History History of tonsillectomy Family History Grandfather Tuberculosis Grandmother Cancer uterine Grandfather CVA (cerebral vascular accident) Grandmother Diabetes Enlarged heart Father Hypertension Heart disease TIA (transient ischemic attack) Mother Breast cancer Other Chronic kidney disease 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 Smoking Status: Former smoker alcohol intake: current alcohol intake frequency: holidays/special occasions only substance use type: does not use seatbelt use: always additional social history: - [facility] History 2 Elective abortions Hx Para 2 Spontaneous abortions Hx # Term Pregnancies Ectopic pregnancies Hx # Pregnancies Multiple births # of living children 2 HPI EMB prior to surgery Details: MERLYN LOWE is a 74 year old who presents for EMB prior to hysterectomy Exam Const General: cooperative and no acute distress Nutritional Appearance: well nourished Orientation: oriented x3 External Female Exam: normal external appearance Speculum Exam - Vagina: vagina atrophic Bimanual Exam- Vagina & Uterus: uterine size normal and non-tender Bimanual Exam- Adnexa, other: normal adnexae, no masses and non-tender Pelvic Support: other (stable prolapse) Office Procedures Endometrial Biopsy Endometrial Biopsy Test: Yes Not Applicable Consent Signed: Yes Time out checklist: patient, procedure, site marked/identified, positioning of patient, supplies available, allergies confirmed and team agrees on procedure Time out time: 13:05 tenaculum used: Yes dilator used: No Details: Cervix prepped with betadine and syringe pipelle inserted 7 cm into uterus without complication. Minimal specimen obtained and sent to lab for analysis. All instruments removed from vagina without complications. Excellent hemostasis noted. Coding Level of Care Code Attention Home Economist Consumer Service Diagnoses Cystocele with incomplete uterovaginal prolapse N81.2 Urethral caruncle N36.2 Atrophic vaginitis N95.2 CPT Codes Endometrial Biopsy (58689) Assessment and Plan Assessment and Plan (1) Cystocele with incomplete uterovaginal prolapse: Status: Acute (2) Urethral caruncle: Status: Acute (3) Atrophic vaginitis: Status: Acute Comment: estradiol cream 3 nights a week Orders: Orders Endometrial Biopsy Today R93.89 - Abnormal findings on diagnostic imaging of other specified body structures Plan reviewed S&S infection. Notify of pathology 05/09/25 1322 <Electronically signed by Carli alanis NP [employer]ATCH[employer]-C> Date _ Carli Wayne NP [employer] Cosigner Signature: Date (if applicable) CC: Dr. India Silverman MD ~ [facility] [employer] Work Phone: Reason for referral (narrative)No reason for referral information available[facility] Work Phone: Family History No Family History Records Found Relationship Condition Age at Onset Recorded Date/T ted grandfather Tuberculosis Unknown grandmother Malignant neoplasm Unknown grandfather Cerebrovascular accident (CVA) Unknown grandmother Diabetes mellitus Unknown Cardiomegaly Unknown father Hypertension Unknown Cardiac disease Unknown Transient ischemic attack Unknown mother Malignant neoplasm of breast Unknown Relationship Condition Age at Onset Recorded Date/T ted Not Specified Chronic kidney disease Unknown grandfather Tuberculosis Unknown grandmother Malignant neoplasm Unknown grandfather Cerebrovascular accident (CVA) Unknown grandmother Diabetes mellitus Unknown Cardiomegaly Unknown father Hypertension Unknown Cardiac disease Unknown Transient ischemic attack Unknown mother Malignant neoplasm of breast Unknown Chief Complaint and Reason for Visit Chief Complaint OSTEO Chief Complaint estradiol refill Reason for Visit Atrophic vaginitis Cystocele with incomplete uterovaginal prolapse Urethral caruncle Routine gynecological examination Chief Complaint estradiol refill EORDER Reason for Visit Atrophic vaginitis Cystocele with incomplete uterovaginal prolapse Urethral caruncle Routine gynecological examination Chief Complaint Admit Date E-ORDER September 21, 2024 10:19am Chief Complaint Admit Date Annual (JAVA APPLICATION ENGINEER) March 06, 2025 11 :16am Reason for Visit Admit Date Atrophic vaginitis March 06, 2025 11 :16am Cystocele with incomplete uterovaginal p rolapse March 06, 2025 11:16am Encounter for routine gynecological exam ination March 06, 2025 11:16am Chief Complaint Admit Date Annual (JAVA APPLICATION ENGINEER) March 06, 2025 11 :16am prolapse. combo surgery April 13, 2025 1:29pm 2HR UDS April 17, 2025 12:59pm CYSTO PELVIC April 23, 2025 11:35am Reason for Visit Admit Date Atrophic vaginitis March 06, 2025 11 :16am Cystocele with incomplete uterovaginal p rolapse March 06, 2025 11:16am Encounter for routine gynecological exam ination March 06, 2025 11:16am Atrophic vaginitis April 13, 2025 1:29pm Cystocele with incomplete uterovaginal p rolapse April 13, 2025 1:29pm Nocturia April 13, 2025 1:29pm Urethral caruncle April 13, 2025 1:29pm Cystocele with incomplete uterovaginal p rolapse April 17, 2025 12:59pm Atrophic vaginitis April 23, 2025 11:35am Constipation April 23, 2025 11:35am Cystocele with incomplete uterovaginal p rolapse April 23, 2025 11:35am Nocturia April 23, 2025 11:35am Stress incontinence April 23, 2025 11:35am Urethral caruncle April 23, 2025 11:35am Chief Complaint Admit Date Annual (JAVA APPLICATION ENGINEER) March 06, 2025 11 :16am prolapse. combo surgery April 13, 2025 1:29pm 2HR UDS April 17, 2025 12:59pm CYSTO PELVIC April 23, 2025 11:35am Consult for Lin rothman (keep 20 min) April 26, 2025 12:58pm Reason for Visit Admit Date Atrophic vaginitis March 06, 2025 11 :16am Cystocele with incomplete uterovaginal p rolapse March 06, 2025 11:16am Encounter for routine gynecological exam ination March 06, 2025 11:16am Atrophic vaginitis April 13, 2025 1:29pm Cystocele with incomplete uterovaginal p rolapse April 13, 2025 1:29pm Nocturia April 13, 2025 1:29pm Urethral caruncle April 13, 2025 1:29pm Cystocele with incomplete uterovaginal p rolapse April 17, 2025 12:59pm Atrophic vaginitis April 23, 2025 11:35am Constipation April 23, 2025 11:35am Cystocele with incomplete uterovaginal p rolapse April 23, 2025 11:35am Nocturia April 23, 2025 11:35am Stress incontinence April 23, 2025 11:35am Urethral caruncle April 23, 2025 11:35am Atrophic vaginitis April 26, 2025 12 :58pm Cystocele with incomplete uterovaginal p rolapse April 26, 2025 12:58pm Chief Complaint Admit Date Annual (JAVA APPLICATION ENGINEER) March 06, 2025 11 :16am prolapse. combo surgery April 13, 2025 1:29pm 2HR UDS April 17, 2025 12:59pm CYSTO PELVIC April 23, 2025 11:35am Consult for Lin rothman (keep 20 min) April 26, 2025 12:58pm CYSTOCELE W/INCOMPLETE UTERINE PROLAPSE May 02, 2025 2:38pm EMB prior to surgery May 09, 2025 12:56pm Pre-op urine C&S/sign consent May 162024 8:27am Reason for Visit Admit Date Atrophic vaginitis March 06, 2025 11 :16am Cystocele with incomplete uterovaginal p rolapse March 06, 2025 11:16am Encounter for routine gynecological exam ination March 06, 2025 11:16am Atrophic vaginitis April 13, 2025 1:29pm Cystocele with incomplete uterovaginal p rolapse April 13, 2025 1:29pm Nocturia April 13, 2025 1:29pm Urethral caruncle April 13, 2025 1:29pm Atrophic vaginitis April 17, 2025 12:59pm Constipation April 17, 2025 12:59pm Cystocele with incomplete uterovaginal p rolapse April 17, 2025 12:59pm Nocturia April 17, 2025 12:59pm Stress incontinence April 17, 2025 12:59pm Urethral caruncle April 17, 2025 12:59pm Atrophic vaginitis April 23, 2025 11:35am Constipation April 23, 2025 11:35am Cystocele with incomplete uterovaginal p rolapse April 23, 2025 11:35am Nocturia April 23, 2025 11:35am Stress incontinence April 23, 2025 11:35am Urethral caruncle April 23, 2025 11:35am Atrophic vaginitis April 26, 2025 12 :58pm Cystocele with incomplete uterovaginal p rolapse April 26, 2025 12:58pm Atrophic vaginitis May 09, 2025 1 2:56pm Cystocele with incomplete uterovaginal p rolapse May 09, 2025 12:56pm Urethral caruncle May 09, 2025 1 2:56pm Atrophic vaginitis May 16, 2025 8 :27am Constipation May 16, 2025 8 :27am Cystocele with incomplete uterovaginal p rolapse May 16, 2025 8:27am Nocturia May 16, 2025 8 :27am Stress incontinence May 16, 2025 8 :27am Urethral caruncle May 16, 2025 8 :27am Summary Purpose Advance Directives No Advanced Directives Records Found Additional Source Comments Goals (unrecognized section and content) Goals may be documented in a n alternate sectionGoals may be documented in an alternate sectionGoals may be documented in an alternate sectionGoals may be documented in an alternate sectionGoals may be documented in an alternate sectionGoals may be documented in an alternate sectionGoals may be documented in an alternate sectionGoals may be documented in an alternate sectionGoals may be documented in an alternate sectionGoals may be documented in an alternate sectionGoals may be documented in an alternate section Care Teams (unrecognized sec tion and content) Team Status: Active Member Role Status Dates Dr. Jairo Navarro MD Family Provider Active Dr. Jairo Navarro MD Primary Care Provider Activ e Team Status: Inactive Member Role Status Dates Dr. Jairo Navarro MD Primary Care Provider, Attending Provider, Referring Provider Active Team Status: Inactive Member Role Status Dates Dr. Jairo Navarro MD Primary Care Provider, Refe rring Provider Active Carli Wayne CANE FLUME WATCHER, [employer]UME WATCHER-C Attending Provider Active Team Status: Inactive Member Role Status Dates Dr. Jairo Navarro MD Primary Care Provider, Atte nding Provider Active Team Status: Active Member Role Status Dates Dr. Luke Navarro MD Family Provider Active Dr. Luke Navarro MD Primary Care Provider Acti ve Team Status: Inactive Member Role Status Dates Dr. Luke Navarro MD Primary Care Provider Acti ve Start: September 21, 2024 End: September 21, 2024 Dr. Luke Navarro MD Attending Provider Active Start: September 21, 2024 End: September 21, 2024 Dr. Luke Navarro MD Referring Provider Active Start: September 21, 2024 End: September 21, 2024 Team Status: Active Member Role/Relationship Status Dates Dr. Luke Navarro MD Family Provider Active Dr. Luke Navarro MD Primary Care Provider Acti ve Team Status: Inactive Member Role/Relationship Status Dates Dr. Luke Navarro MD Primary Care Provider Acti ve Start: March 06, 2025 End: March 06, 2025 Dr. Luke Navarro MD Referring Provider Active Start: March 06, 2025 End: March 06, 2025 Carli Wayne CANE FLUME WATCHER, CANE FLUME WATCHER-C Attending Provider Active Start: March 06, 2025 End: March 06, 2025 Team Status: Active Member Role/Relationship Status Dates Dr. Luke Navarro MD Primary care physician Act mahsa Team Status: Inactive Member Role/Relationship Status Dates Dr. Luke Navarro MD Primary care physician Act mahsa Start: March 06, 2025 End: March 06, 2025 Dr. Luke Navarro MD Referring Provider Active Start: March 06, 2025 End: March 06, 2025 Carli Wayne NP, NP-Jazzmine Attending physician Active Start: March 06, 2025 End: March 06, 2025 Team Status: Inactive Member Role/Relationship Status Dates Dr. Luke Navarro MD Primary care physician Act mahsa Start: April 13, 2025 End: April 13, 2025 Dr. Luke Navarro MD Referring Provider Active Start: April 13, 2025 End: April 13, 2025 Dr. Latasha Ceballos MD Attending physician Active Start: April 13, 2025 End: April 13, 2025 Team Status: Inactive Member Role/Relationship Status Dates Dr. Luke Navarro MD Primary care physician Act mahsa Start: April 17, 2025 End: April 17, 2025 Dr. Luke Navarro MD Referring Provider Active Start: April 17, 2025 End: April 17, 2025 Dr. Latasha Ceballos MD Attending physician Active Start: April 17, 2025 End: April 17, 2025 Team Status: Inactive Member Role/Relationship Status Dates Dr. Luke Navarro MD Primary care physician Act mahsa Start: April 23, 2025 End: April 23, 2025 Dr. Luke Navarro MD Referring Provider Active Start: April 23, 2025 End: April 23, 2025 Dr. Latasha Ceballos MD Attending physician Active Start: April 23, 2025 End: April 23, 2025 Team Status: Inactive Member Role/Relationship Status Dates Dr. Luke Navarro MD Primary care physician Act mahsa Start: April 26, 2025 End: April 26, 2025 Dr. Luke Navarro MD Referring Provider Active Start: April 26, 2025 End: April 26, 2025 Dr. India Silverman MD Attending physician Active Start: April 26, 2025 End: April 26, 2025 Team Status: Inactive Member Role/Relationship Status Dates Dr. Luke Navarro MD Primary care physician Act mahsa Start: May 02, 2025 End: May 02, 2025 Dr. India Silverman MD Attending physician Active Start: May 02, 2025 End: May 02, 2025 Dr. India Silverman MD Referring Provider Active Start: May 02, 2025 End: May 02, 2025 Team Status: Inactive Member Role/Relationship Status Dates Dr. Luke Navarro MD Primary care physician Act mahsa Start: May 09, 2025 End: May 09, 2025 Dr. Luke Navarro MD Referring Provider Active Start: May 09, 2025 End: May 09, 2025 Carli Wayne NP CANE FLUME WATCHER-C Attending physician Active Start: May 09, 2025 End: May 09, 2025 Team Status: Inactive Member Role/Relationship Status Dates Dr. Luke Navarro MD Primary care physician Act mahsa Start: May 09, 2025 End: May 09, 2025 Carli Wayne NP CANE FLUME WATCHER-C Attending physician Active Start: May 09, 2025 End: May 09, 2025 Team Status: Inactive Member Role/Relationship Status Dates Dr. Luke Navarro MD Primary care physician Act mahsa Start: May 16, 2025 End: May 16, 2025 Dr. Luke Navarro MD Referring Provider Active Start: May 16, 2025 End: May 16, 2025 Dr. Latasha Ceballos MD Attending physician Active Start: May 16, 2025 End: May 16, 2025 INFORMATION SOURCE (unrecogn ized section and content) DATE CREATED AUTHOR 05/24/2025 [facility] FOR RECORDS PERTAINING TO PATIENTS WHO ARE OR HAVE BEEN ENROLLED IN A CHEMICAL DEPENDENCY/SUBSTANCEABUSE PROGRAM, SOME INFORMATION MAY BE OMITTED. This clinical summary was aggregated from multiple sources. Caution should be exercised in using it in the provision of clinical care. This summary normalizes information from multiple sources, and as a consequence, information in this document may materially change the coding, format and clinical context of patient data. In addition, data may be omitted in some cases. CLINICAL DECISIONS SHOULD BE BASED ON THE PRIMARY CLINICAL RECORDS. [employer] provides no warranty or guarantee of the accuracy or completeness of information in this document.
[2025-05-25] MEDS: Scopolamine 1mg/72hr Patch 1 PATCH TD (06:28)
[2025-05-25] MEDS: Magnesium 1 GM over 15 mins IV (06:31)
[2025-05-25] MEDS: Lactated Ringers 1,000 ML 40 ML IV (06:32)
--- NOTE | 2025-05-25 06:52 | PRE.ANES_ITS ---
ASA Classification* ASA Classification ASA Classification: 2 Assessment & Plan Anesthesia* Anesthesia Assessment Anesthesia Assessment: Discussed sedation and/or anesthesia options, risks, benefits, and alternatives with patient/parents/legal guardian/POA. Questions invited. The patient/parents/legal guardian/POA seems to understand and agrees to proceed with anesthesia plan. Reviewed the physical assessment, medical history, allergy history and patient home medications list prior to surgery/procedure/anesthetic and documented any changes. Performed airway and anesthesia risk assessments. Anesthesia Type Anesthesia Type: General Anesthesia Focused Assessment* Temperature: 98.1 F Pulse Rate: 66 Blood Pressure: 131/67 Respiratory Rate: 18 Pulse Ox: 99 Airway Assessment Mouth opens: >3 cm Mallampati Score: II Labs Anesthesia Preop lab: CBC WBC, (4.4-11.0) 7.8 K/mm3 05/21/25, 08:56 RBC, (4.2-5.4) 4.38 M/mm3 05/21/25, 08:56 Hgb, (12.0-15.0) 13.5 g/dL 05/21/25, 08:56 Hct, (37-47) 41.0 % 05/21/25, 08:56 Plt Count, (150-450) 330 K/mm3 05/21/25, 08:56 CHEMISTRY Potassium, (3.3-5.1) 4.2 mmol/L 05/21/25, 08:56 Sodium, (133-145) 143 mmol/L 05/21/25, 08:56 Magnesium, (1.5-2.2) 2.1 mg/dL 05/21/25, 08:54 BUN, (4-19) 18 mg/dL 05/21/25, 08:56 Creatinine, (0.70-1.20) 0.80 mg/dL 05/21/25, 08:56 Glucose, (70-99) 82 mg/dL 05/21/25, 08:56 TSH, (0.300-4.200) 3.180 uIU/mL 05/21/25, 08:54 COAG Pre-Assessment Diagnosis/Proposed Procedure Planned Operative Procedure(s): HYSTERECTOMY TOTAL VAGINAL AND A&P REPAIR CHUYITA SSLF DERMIS, POSSIBLE SLINGM CYSO, CHUYITA URETERAL CATHETERIZAION Anesthesia History Anesthesia History - project manager interior design: Anesthesia History - project manager interior design Hx Hospitalization No 05/14/25 13:27 Any Problems With Anesthesia No 05/14/25 13:27 Cholinesterase deficiency No 05/14/25 13:27 You/Your Family Experience No 05/14/25 13:27 fever (hyperthermia) with Relationship Recent Exposure to Contagious No 05/25/25 06:03 Disease Does patient have nerve No 05/14/25 13:27 stimulator Patient instructed to have device shut off --Does patient have Pacemaker No 05/25/25 06:03 or ICD? When Was Last Pacemaker Check QUESTION #4 FULL TEXT: You/Your Family Experience fever (hyperthermia) with Anesthesia Last Oral Intake Last Oral intake: Last Oral Intake NPO since 04:00 05/25/25 06:03 Meds taken in AM with sips of Yes 05/25/25 06:03 water? Meds patient instructed to levothyroxine 05/25/25 06:03 take am of surgery PONV PONV - project manager interior design: PONV - project manager interior design Female Yes 05/14/25 13:27 HX of Motion Sickness No 05/14/25 13:27 HX of N/V After Surgery No 05/14/25 13:27 Non-Smoker Yes 05/14/25 13:27 Duration of Surgery greater Yes 05/14/25 13:27 than 60 minutes Number of Risk Factors 3 05/14/25 13:27 PONV Score Moderate Risk 05/14/25 13:27 Height & Weight Height & Weight: Anesthesia: Height & Weight Height 5 ft 1 in 05/25/25 06:03 Weight: 72 kg 05/25/25 06:03 Body Mass Index (BMI) 29.9 05/25/25 06:03 Respiratory Assessment Respiratory Assessment - project manager interior design: Respiratory Tract Infection Hx - project manager interior design Hx Respiratory Tract Infection No 05/14/25 13:27 STOP Sleep Apnea STOP Sleep Apnea - project manager interior design: STOP Sleep Apnea - project manager interior design Hx Hypertension Yes 05/14/25 13:27 Hx Sleep Apnea No 05/14/25 13:27 CPAP BIPAP Do you snore loudly (louder Yes 05/14/25 13:27 than talking or can be heard Do you often feel tired/ No 05/14/25 13:27 fatigued/ sleepy during daytime? Has anyone observed you stop No 05/14/25 13:27 breathing during sleep? STOP Results Positive 05/14/25 13:27 QUESTION #5 FULL TEXT : Do you snore loudly (louder than talking or can be heard through closed doors)? 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 Specify any problems Hx of Preganancy in last 3 N/A 05/14/25 13:27 Months Nurse Filling Out Transfusion BLU 05/14/25 13:27 & Questions: Date: 05/14/25 05/14/25 13:27 Time: 13:30 05/14/25 13:27 Patient unable to answer at this time (ie. confused, unrespo /Reproduction History /Reproductive History - project manager interior design: /Reproductive Hx- project manager interior design Hx Now Gestational Age (in weeks): EDC: Hx Hx Para Hx Section SAB No 05/14/25 13:27 Active Medications Active Medications: Current Medications Generic Name Dose Route Start Last Admin Trade Name Freq PRN Reason Stop Dose Admin Acetaminophen 1,000 mg 05/25/25 08:00 05/25/25 06:29 Acetaminophen 500 Mg Tablet PO 05/25/25 08:01 1,000 mg PREOP ONE Administration Celecoxib 400 mg 05/25/25 08:00 05/25/25 06:30 Celecoxib 200 Mg Capsule PO 05/25/25 08:01 400 mg PREOP ONE Administration Dexamethasone Sodium Phosphate 8 mg 05/25/25 08:00 Dexamethasone 4 Mg/Ml Vial IV 05/25/25 08:01 INTRAOP ONE Enoxaparin Sodium 40 mg 05/25/25 08:00 05/25/25 06:29 Enoxaparin 40 Mg/0.4 Ml Syringe SC 05/25/25 08:01 40 mg PREOP ONE Administration Gabapentin 600 mg 05/25/25 08:00 05/25/25 06:30 Gabapentin 600 Mg Tablet PO 05/25/25 08:01 600 mg PREOP ONE Administration Lactated Ringer's 1,000 mls @ 40 mls/hr 05/25/25 08:00 05/25/25 06:32 IV 40 mls/hr .Q25H CHELSIE Administration Magnesium Sulfate 1 gm/ 102 mls @ 408 mls/hr 05/25/25 08:00 05/25/25 06:31 Dextrose IV 05/25/25 08:14 408 mls/hr PREOP ONE Administration Cefotetan Disodium 2 gm/ 100 mls @ 200 mls/hr 05/25/25 08:00 Sodium Chloride IV 05/25/25 08:29 INTRAOP ONE Insulin Human Lispro 0 unit 05/25/25 14:05 Insulin Lispro 100 Unit/Ml Insuln.Pen SC Q4H PRN PRN BG >/= 180, SEE PROTOCOL Protocol Ondansetron HCl 4 mg 05/25/25 08:00 Ondansetron 4 Mg/2 Ml Vial IV 05/25/25 08:01 INTRAOP ONE Scopolamine HBr 1 patch 05/25/25 08:00 05/25/25 06:28 Scopolamine 1mg/72hr Patch TD 05/25/25 08:01 1 patch PREOP ONE Administration PFSH Medical History Wears glasses Heartburn Former smoker History of edema Constipation Stress incontinence Nocturia High cholesterol Hypertension Arthritis Allergies Pure hypercholesterolemia Vitamin D deficiency Osteopenia Hypothyroid Home Medications ?Medication ?Instructions ?Recorded ?Last Taken ?Type amlodipine 10 mg tablet (Norvasc) 10 mg PO DAILY 08/2205/24/25 History cholecalciferol (vitamin D3) 125 125 mcg PO DAILY 07/2705/24/25 History mcg (5,000 unit) capsule pravastatin 40 mg tablet 40 mg PO DAILY 08/22/2004/27 History ascorbate calcium (vitamin C) 500 500 mg PO DAILY 08/2705/24/25 History mg tablet hydrochlorothiazide 12.5 mg tablet 25 mg PO DAILY SWEL LING 09/17/20 05/24/25 History levothyroxine 25 mcg capsule 50 mcg PO DAILY 01/25/23 05/25/25 History estradiol 0.01% (0.1 mg/gram) See Rx Instructions vagi nal 03/06/25 05/24/25 Rx vaginal cream .COMPLEX #42.5 grams calcium carbonate (Calcium 600) 600 mg PO QDAY 5 05/24/25 History Vitamin E 180 mg PO DAILY 04/26/25 History coenzyme Q10 10 mg capsule (Co 10 mg PO QDAY 04/26/25 05/24/25 History Q-10) folate 800 mcg PO DAILY 04/26/25 History Allergy/AdvReac Type Severity Reaction Status Date / Time Penicillins AdvReac Mild CAUSES Verified 05/25/25 06:08 YEAST INFECTIONS Family History Grandfather Tuberculosis Grandmother Cancer uterine Grandfather CVA (cerebral vascular accident) Grandmother Diabetes Enlarged heart Father Hypertension Heart disease TIA (transient ischemic attack) Mother Breast cancer Other Chronic kidney disease Surgical History History of tonsillectomy 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
--- NOTE | 2025-05-25 07:11 | HP.PCM_ITS ---
History and Physical Vital Signs 03/06/2511:17 04/23/2511:52 04/26/2513:08 Height 5 ft 1 in 5 ft 1 in 5 ft 1 in Weight: 159 lb BMI 30.0 BP 145/66 H Intake Visit Reasons: Consult for Lin rothman (keep 20 min) [place] Required: No Is patient in pain?: Yes (chronic knee pain) Allergies No Known Allergies Allergy (Verified 04/26/25 13:12) Medications ?Medication ?Instructions ?Recorded ?Confirmed ?Type amlodipine 10 mg tablet (Norvasc) 10 mg PO DAILY 08/22/20 04/26/25 History cholecalciferol (vitamin D3) 125 125 mcg PO DAILY 08/22/20 04/26/25 Histo ry mcg (5,000 unit) capsule pravastatin 40 mg tablet 40 mg PO DAILY 08/22/20 04/26/25 History ascorbate calcium (vitamin C) 500 500 mg PO DAILY 09/17/20 04/26/25 Histor y mg tablet hydrochlorothiazide 12.5 mg tablet 12.5 mg PO DAILY PRN 09/17/20 04/26/25 History levothyroxine 25 mcg capsule 50 mcg PO DAILY 01/25/23 04/26/25 Histor y estradiol 0.01% (0.1 mg/gram) See Rx Instructions vaginal 03/06/25 04/26/25 Rx vaginal cream .COMPLEX #42.5 grams calcium carbonate (Calcium 600) 600 mg PO QDAY 04/13/25 04/26/25 History Vitamin E PO 04/26/25 History coenzyme Q10 10 mg capsule (Co 10 mg PO QDAY 04/26/25 04/26/25 History Q-10) folate PO 04/26/25 History Is last menstrual period known: No Post menopausal: Yes Patient : No : No PFSH Medical History Constipation Stress incontinence Nocturia High cholesterol Hypertension Arthritis Allergies Pure hypercholesterolemia Vitamin D deficiency Osteopenia Hypothyroid Surgical History History of tonsillectomy Family History Grandfather Tuberculosis Grandmother Cancer uterine Grandfather CVA (cerebral vascular accident) Grandmother Diabetes Enlarged heart Father Hypertension Heart disease TIA (transient ischemic attack) Mother Breast cancer Other Chronic kidney disease 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 she has had a vaginal bulge and pressure intermittenly increasing over the last year and denies any vaginal bleeding or abnormal dishcarge, wants to have definitive treatment. She has a history of hypothyroidism, hyperlipidemia, and hypertension, which are well-managed with medications. Her surgical history includes a tonsillectomy, and she reports no significant family history of cancer. The patient also has osteoarthritis in the knees and experiences constipation. She denies urinary or fecal incontinence, nausea, vomiting, or other gastrointestinal issues. Attestation: Documentation on this patient encounter was supported using ambient scribe technology/ voice AI technology. The patient consented to recording for the purpose of documenting the encounter. Provider reviewed content of the generated note prior to signature. Female Reproductive History Questions: metrorrhagia: No, dyspareunia: No and PCB: No Menopausal Symptoms: No night sweats History 2 Elective abortions Hx Para 2 Spontaneous abortions Hx # Term Pregnancies Ectopic pregnancies Hx # Pregnancies Multiple births # of living children 2 ROS Const Constitutional: Reports system reviewed and no additional complaints, except as documented; Denies fatigue, headache(s) or night sweats ENT ENT: Reports system reviewed and no additional complaints, except as documented Cardio Card: Denies chest pain Resp Resp: Denies cough or dyspnea GI GI: Reports constipation; Denies abdominal pain, bloating, change in stool character, fecal incontinence, nausea or vomiting : Reports prolapse symptoms, urinary incontinence and vaginal dryness; Denies nipple discharge, pelvic pain, sexual dysfunction, urinary frequency, urinary urgency, vaginal discharge, vaginal odor or vaginal pruritus Musc Musc: Reports arthralgias; Denies back pain or muscle weakness Skin Skin/Breast: Denies alopecia, change in hair, dry skin, breast mass, breast pain, breast skin changes or nipple discharge Neuro Neuro: Reports system reviewed and no additional complaints, except as documented Psych Psych: Denies anxiety or depression Endo Endo: Denies cold intolerance, excessive sweating, heat intolerance or polydipsia Kwasi/Lymph Hematologic/Lymphatic: Denies easy bleeding, Denies easy bruising and Denies lymphadenopathy Exam Const General: cooperative, healthy appearing, comfortable, no acute distress and well developed Orientation: alert [facility] Head: normal to inspection, normocephalic and atraumatic Ears: hearing grossly normal bilaterally and external ears normal Nose: external nose normal and nares normal Face and sinus: normal facial exam Neck Neck: normal visual inspection, full ROM, no lymphadenopathy and trachea midline Thyroid: thyroid normal Chest Chest palpation & inspection: normal inspection of the chest Breast inspection: normal inspection of the breasts, normal inspection of the axillae, abnormal inspection of the axilla and abnormal inspection of the breast Resp Effort & Inspection: normal respiratory effort Auscultation: clear to auscultation bilaterally Cardio Rate: regular rate Rhythm: regular rhythm Heart Sounds: S1 normal and S2 normal GI Inspection: normal to inspection and non-distended Palpation: soft, no hepatosplenomegaly, no hepatomegaly, not rigid and nontender General: bladder normal to palpation External Female Exam: abnormal external appearance (atrophic introitus), normal appearance of the urethra and no lesions Urethra: normal appearance of the urethra Speculum Exam - Vagina: abnormal appearance of the vagina, normal vaginal discharge, vagina atrophic and no lesions Speculum Exam - Cervix: normal appearance of the cervix Bimanual Exam- Vagina & Uterus: normal bimanual exam, uterine size normal, bladder normal to palpation, uterine shape normal, uterine mobility normal and non-tender Bimanual Exam- Adnexa, other: normal adnexae, no masses, rectocele (III), cystocele (III) and vaginal apex descent (III) Pelvic Support: cystocele (III), rectocele (III) and vaginal apex descent (III) Musc Other: gross motor intact no deficits, full bilateral strength Skin General: no rashes or lesions noted and atrophy Neuro General: patient alert, patient awake, moves all extremities and no focal motor deficits Motor: muscle tone normal throughout Extrem General: normal to inspection and no pedal edema Psych Appearance: grossly normal Mental Status: mental status grossly normal Affect: normal affect Speech and Movement: speech and movement normal Coding Level of Care Code Off vis,est,level 5 Diagnoses Cystocele with incomplete uterovaginal prolapse N81.2 Atrophic vaginitis N95.2 Assessment and Plan Assessment and Plan (1) Cystocele with incomplete uterovaginal prolapse: Status: Acute Comment: plan tvhbs combo with lin (2) Atrophic vaginitis: Status: Acute Comment: estradiol cream 3 nights a week Orders: Orders Pelvic w/ Transvaginal Today N81.2 - Incomplete uterovaginal prolapse Plan Assessment and Plan 74-year-old female with a history of hypothyroidism, hyperlipidemia, and hypertension presenting with pelvic organ prolapse. The pelvic organ prolapse requires surgical intervention, coordinated between the pinsetter mechanic automatic and pelvic floor covering contractor. Her chronic conditions are well-managed, and she has no significant family history of cancer. Osteoarthritis in the knees and constipation are noted, with conservative management in place. 1. Pelvic Organ Prolapse Surgical intervention is planned for the pelvic organ prolapse, with coordination between the pinsetter mechanic automatic and pelvic floor covering contractor. A vaginal ultrasound will be conducted preoperatively to evaluate the uterus and ovaries. The surgery will be performed vaginally to ensure minimal invasiveness and optimal outcomes. 2. Hypothyroidism The patient's hypothyroidism is stable with current medication, requiring no changes at this time. 3. Hyperlipidemia The patient's hyperlipidemia is controlled with medication, with no adjustments needed currently. 4. Hypertension The patient's hypertension is well-managed with medication, with no changes necessary at this time. 5. Osteoarthritis Of The Knees The patient reports osteoarthritis in the knees, managed conservatively. 6. Constipation The patient experiences constipation, managed with dietary and lifestyle modifications. I discussed the surgical plan for pelvic organ prolapse, emphasizing the benefits of a vaginal approach to minimize invasiveness and optimize recovery. We reviewed the importance of preoperative imaging to avoid intraoperative surprises and ensure comprehensive care. The patient was informed about the potential risks and benefits of the procedure, and consent was obtained. We also discussed the management of her chronic conditions, ensuring they remain stable with current treatments. After discussing the patient's diagnosis and treatment plan options, patient wishes to proceed with surgical management. I have discussed with the patient the risks, benefits, and alternatives of the procedure which include but are not limited to risks of anesthesia, bleeding, infection, possible damage to bowel, bladder, or surrounding vasculature which could lead to additional surgery to evaluate any complications. Patient agrees to procedure and wishes to proceed. ACOG/uptodate references given for additional information regarding procedure. Patient Instructions: - Follow the preoperative instructions, including using the special soap and drinks provided. - Consider bringing gum to the hospital to aid bowel function post-surgery. - Continue current medications for hypothyroidism, hyperlipidemia, and hypertension as prescribed. UPDATE- I have seen the patient and performed any clinically relevant updates to the history and physical exam. India Silverman MD
--- NOTE | 2025-05-25 07:20 | HP.PCM_ITS ---
History and Physical Date of Admission: 05/25/25 Date of Service: 05/16/25 MR#: [id number] Acct: [id number] Name: MERLYN LOWE Rep #: [id number] : 1950 Provider: Dr. Latasha Ceballos MD Age/Sex: 74/F [place] [facility] Status: Signed Intake Vital Signs 05/09/2513:03 05/16/2508:38 Height 5 ft 1 in 5 ft 1 in Weight: 156 lb BMI 29.5 BP 127/77 H Pulse 65 Intake Visit Reasons: Pre-op urine C&S/sign consent Chief Complaint: preoperation visit with urine a consent Hands And Dial Inspector Required: No Accompanied by: self Is patient in pain?: No Allergies Penicillins Adverse Reaction (Mild, Verified 05/16/25 08:36) CAUSES YEAST INFECTIONS Medications ?Medication ?Instructions ?Recorded ?Confirmed ?Type amlodipine 10 mg tablet (Norvasc) 10 mg PO DAILY 08/22/20 05/16/25 History cholecalciferol (vitamin D3) 125 125 mcg PO DAILY 08/22/20 05/16/25 Histo ry mcg (5,000 unit) capsule pravastatin 40 mg tablet 40 mg PO DAILY 08/22/20 05/16/25 History ascorbate calcium (vitamin C) 500 500 mg PO DAILY 09/17/20 05/16/25 Histor y mg tablet hydrochlorothiazide 12.5 mg tablet 25 mg PO DAILY SWELLING 09/17/20 5 History levothyroxine 25 mcg capsule 50 mcg PO DAILY 01/25/23 05/16/25 Histor y estradiol 0.01% (0.1 mg/gram) See Rx Instructions vaginal 03/06/25 05/16/25 Rx vaginal cream .COMPLEX #42.5 grams calcium carbonate (Calcium 600) 600 mg PO QDAY 04/13/25 05/16/25 History Vitamin E 180 mg PO DAILY 04/26/25 05/16/25 Histor y coenzyme Q10 10 mg capsule (Co 10 mg PO QDAY 04/26/25 05/16/25 History Q-10) folate 800 mcg PO DAILY 04/26/25 05/16/25 Histo ry Have you fallen in the past year?: No Nurse's Note: Patient reports she is well today, with no sx of infection. 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 The patient is here for preoperative history and physical prior to anterior repair, possible posterior repair, possible bilateral sacrospinous ligament fixation with dermis, mid urethral sling, cystoscopy with bilateral ureteral catheterization. There are no new symptoms since the last visit. The procedure, recovery and expectations were explained. The risks, benefits and alternatives were discussed, including but not limited to, the risks of anesthesia, bleeding, infection, injury, pain and the need for further intervention. We have discussed the risk of exposure to and/or potential harm posed by the COVID-19 virus with having a surgery/procedure at this time. A joint decision was made at this time to proceed with the scheduled surgery/procedure as indicated on the consent form. ROS Const Constitutional: No chills, fatigue, fever(s), headache(s), night sweats, weakness, weight change, abnormal sleep pattern or change in appetite Eyes Eyes: No change in vision ENT ENT: No headache(s) or dry mouth Resp Respiratory: No cough, chest congestion, shortness of breath or wheezing Cardio Cardiology: Positive for other (No chest pain.); No shortness of breath, irregular heart rhythm or lightheadedness Gastro GI: Positive for other (No nausea.); No abdominal pain, change in bowel habits, constipation, diarrhea or vomiting Musc Musculoskeletal: No abnormal gait Skin Skin: No yellowing of the eye, lesions, itchy eyes, rash or skin ulcer Neuro Neurology: No abnormal gait, confusion, dizziness, weakness, headache(s) or memory loss Psych Psychiatric: No abnormal sleep pattern, No change in appetite, No confusion and No memory loss Endo Endocrine: No fatigue, increased thirst/drinking or weight change Aller/Imm Allergy/Immunologic: No itchy eyes or wheezing Kwasi/Lymp Hematologic/Lymphatic: No easy bleeding, easy bruising or enlarged lymph nodes Exam Const General: cooperative, healthy appearing, comfortable and no acute distress HENMT Head: normocephalic and atraumatic Ears: hearing grossly normal bilaterally and external ears normal Nose: external nose normal Eyes General: appearance normal, both eyes and all related structures Neck Neck: normal visual inspection and trachea midline Chest Chest palpation & inspection: normal inspection of the chest Resp Effort & Inspection: normal respiratory effort, able to speak in complete sentences and symmetric chest movement Cardio Rate: regular rate GI Inspection: normal to inspection Palpation: soft and nontender General: No CVA tenderness Skin General: no rashes or lesions noted Neuro General: patient alert, patient awake, patient oriented x3 and CN's II-XI intact bilaterally Extrem General: normal to inspection Psych Appearance: grossly normal and well kempt Mental Status: mental status grossly normal Results POC UA Auto w/o Microscopy Office Urine Color ? Last Edit by Monik Chavez on 05/16/25 08:40 Office Urine Clarity ? Last Edit by Monik Chavez on 05/16/25 08:40 Office Urine Glucose Negative Last Edit by Monik Chavez on 05/16/25 08:40 Office Urine Ketones Negative Last Edit by Monik Chavez on 05/16/25 08:40 Office Urine Bilirubin Negative Last Edit by Monik Chavez on 05/16/25 08:4 0 Office Urine Urobilinogen 0.2 mg/dL Last Edit by Monik Chavez on 05/16/25 08:40 Off Ur Spec [place] 1.010 Last Edit by Monik Chavez on 05/16/25 08:40 Office Urine pH 7 Last Edit by Monik Chavez on 05/16/25 08:40 Office Urine Protein Negative Last Edit by Monik Chavez on 05/16/25 08:40 Office Urine Blood Negative Last Edit by Monik Chavez on 05/16/25 08:40 Office Urine Blood Hemolyzed Negative Last Edit by Monik Chavez on 5 08:40 Office Urine Nitrate Negative Last Edit by Monik Chavez on 05/16/25 08:40 Off Ur Leukocytes Negatve Last Edit by Monik Chavez on 05/16/25 08:40 Coding Level of Care Code Off vis,est,level 4 Diagnoses Cystocele with incomplete uterovaginal prolapse N81.2 Stress incontinence N39.3 Urethral caruncle N36.2 Atrophic vaginitis N95.2 Nocturia R35.1 Constipation K59.00 Assessment and Plan Assessment and Plan (1) Cystocele with incomplete uterovaginal prolapse: Status: Acute (2) Stress incontinence: Status: Acute (3) Urethral caruncle: Status: Acute (4) Atrophic vaginitis: Status: Acute Comment: estradiol cream 3 nights a week (5) Nocturia: Status: Acute (6) Constipation: Status: Acute Orders: Orders POC UA Auto w/o Microscopy Today N39.3 - Stress incontinence (female) (male) Plan Urine culture today Proceed with intervention as scheduled Hold vitamin E bloodwork and EKG scheduled for Wednesday Clinical Quality Measures Falls Risk Screening/Assistive Devices Have you fallen in the past year?: No 05/16/25 0901 <Electronically signed by Latasha Ceballos MD> Date Latasha Ceballos MD
--- NOTE | 2025-05-25 07:30 | UT_PTH ---
PATIENT: MERLYN LOWE LOC: [facility]3 U#:[id number] AGE/SX: 74/F ROOM: TX312 RE05/25/[address]: Dr. India Silverman MD : 1950 BED: 1 DIS: 05/26/2025 SPEC #: [id number] RECD: 05/25/25 13:26 STATUS: HUMPHREY ALBRIGHTMarlo #: [id number] KAREN: 05/25/25 07:[address]: India Silverman DEPT: SURGICAL PATHOLOGY RECD BY: Jak Kelsey ENTERED: 05/25/25 15:16 SP TYPE: UTERUS OTHR DR: MD Dr. Latasha Carmona MD Tissues: A - Uterus, NOS Procedures: Surgery Specimen Level V HEADER OPERATION: ERAS, hysterectomy, total vaginal, bilateral salpingectomy PRE-OP DIAGNOSIS: Cystocele with incomplete uterovaginal prolapse, atrophic vaginitis TISSUE SUBMITTED: A- Uterus, cervix, bilateral fallopian tubes MICROSCOPIC DIAGNOSIS A. Uterus, uterine cervix, and two fallopian tubes, total vaginal hysterectomy and bilateral salpingectomies: - Squamous metaplasia and chronic cystic endocervicitis of the uterine cervix - Benign cystic atrophy with polyp formation of the endometrium - Benign myometrium - Full thickness segments of two fallopian tubes - Paratubal cyst of one of the fallopian tubes MICROSCOPIC DESCRIPTION Slides are reviewed. GROSS DESCRIPTION A. Received in formalin labeled with the patient's name and date of . Designated as uterus, cervix, bilateral fallopian tubes is a 35.5 g, 6.1 x 3.7 x 2.3 cm uterus with detached adnexa. The serosa is rodarte-pink and congested. The attached cervix is rodarte-pink, slightly wrinkled and measures 3.7 x 3.1; the 0.9 cm os is probe patent and expelling hemorrhagic mucoid material. Mucoid containing cyst are present. The specimen is inked as follows: [id number]-orange. The uterus has a 3.7 x 2.0 cm endometrial canal lined by pale rodarte to red, granular and somewhat nodular endometrium measuring up to 0.2 cm thick. The nodules are grossly superficial, involve both the anterior and posterior endometrium and range from 0.1 cm to 0.4 x 0.3 x 0.1 cm. The myometrium is rodarte-pink and measures up to 1.1 cm in thickness. The rodarte-pink, undesignated bilateral fallopian tubes are fimbriated and measure 1.4 x 0.4 cm and 1.9 x 0.5 cm. Veterinary Bacteriologist sections are submitted as follows: A1: Anterior cervixA2: Posterior cervixA3-A5: Anterior endometrium and myometrium, from ALIDA to FundusA6: Posterior endometrium and myometrium, with nodularityA7: Fallopian tubes SC 05/25/25 CPT:34952
[2025-05-25] MEDS: Lidocaine 1% (5 ml sdv) 5 ML Vial IV (07:35)
--- NOTE | 2025-05-25 08:48 | DCINST_ITS ---
Discharge Instructions Diet Discharge Diet: No restrictions Activity Discharge Activity: May Not Drive (For 2 weeks) and May Shower May resume sexual activity in: 8 weeks Lifting Restrictions: 5 pounds for 8 weeks Additional Activity Instructions:: No swimming, hot tubs, tub bathing, intercourse, strenuous activity or exercise, no dog walking Dressing / Incision Call your doctor if your incision/area has: Continuous Slow Oozing, Sudden Increased Bleeding, Increased Pain/ Swelling, Increased Redness and Foul Smelling Discharge Call your doctor if you observe: Fever of 101 or Higher, Inability to urinate and Inability to have a bowel movement Follow Up Care Please Follow Up With: Latasha Ceballos MD Test Results: Test results from this visit will be discussed in further detail at your follow- up appointment, if applicable. Discharge Plan Admission Admit Date/Time: 05/25/25 07:52 Attending Provider: India Silverman Primary Care Provider: Luke Navarro Consulting Providers: Latasha Ceballos Discharge Orders/Prescriptions Prescriptions: New oxycodone-acetaminophen 5-325 mg tablet 1 tab PO Q8H PRN (Reason: pain) 3 Days Qty: 10 0RF cephalexin 500 mg capsule 500 mg PO Q12 3 Days Qty: 6 0RF ondansetron 4 mg tablet,disintegrating 4 mg PO Q8H PRN (Reason: nausea and vomiting) Qty: 10 0RF Continued ascorbate calcium (vitamin C) 500 mg tablet 500 mg PO DAILY pravastatin 40 mg tablet 40 mg PO DAILY amlodipine [Norvasc] 10 mg tablet 10 mg PO DAILY cholecalciferol (vitamin D3) 125 mcg (5,000 unit) capsule 125 mcg PO DAILY hydrochlorothiazide 12.5 mg tablet 25 mg PO DAILY levothyroxine 25 mcg capsule 50 mcg PO DAILY estradiol 0.01 % (0.1 mg/gram) cream See Rx Instructions VAGINAL .COMPLEX Qty: 42.5 2RF Rx Instructions: small amount as directed vaginal three times a week; calcium carbonate [Calcium 600] 600 mg calcium (1,500 mg) tablet 600 mg PO QDAY coenzyme Q10 [Co Q-10] 10 mg capsule 10 mg PO QDAY Vitamin E 180 mg PO DAILY folate 800 mcg PO DAILY Other Ambulatory Orders: 12 Lead EKG (Routine) Timeframe: 20250521 Location: None Selected Ordered By: Dr. India Silverman Referrals / Follow Up: Luke Navarro MD [Primary Care Provider, Family Practice] Disposition Disposition (needs filled in before D/C Order can be placed): Home, Self Care
--- NOTE | 2025-05-25 08:51 | PCM.OPRPT ---
Multi Select Codes Urology Urology Charge Forwarding-multi code: 33245 Cysto Bladder w/ Ureteral Catheterizaion, 55866 Combined Anteroposterior Colporrhaphhy, 90632 Sling Operation Stress Incontinence and Attention Jamal Operative Report (Standard) Operative Information Date of Procedure: 05/25/25 Pre-Operative Diagnosis: Cystocele and rectocele with incomplete uterine prolapse, stress urinary incontinence Post-Operative Diagnosis: Same Surgery/Procedure Performed: Anterior and posterior repair, mid urethral sling insertion, cystoscopy with bilateral ureteral catheterization. public relations senior associate: Yes Commercial Lease Administrator: Jules Lauren Tasks completed by engineer first assistant: Retracting Type of Anesthesia: General RN Documented Start/Stop Times: Operation Date: 05/25/25 07:30 Case Time Into Pre-Op 05/25/25 05:43 Out of Pre-Op 05/25/25 05:43 Anesthesia Start 05/25/25 07:30 Into Room 05/25/25 07:30 Procedure Start 05/25/25 08:00 Procedure End 05/25/25 10:24 Procedure Start Time: 09:22 Procedure Stop Time: 10:24 Select all DRAINS/GRAFTS/IMPLANTS that apply: Implanted device Implanted device details: Altis mid urethral sling Estimated Blood Loss: 25cc Specimen collected: No Description of surgery: The patient was taken to the operating room placed on the operating room table. Anesthesia monitored the head, neck, airway, IV access and vital signs throughout the case. Once anesthesia was appropriately administered, the patient was prepped and draped in usual sterile fashion. A Steiner catheter was then inserted straight drain and the bladder was emptied. Dr. Huerta performed her portion of the procedure and closed the vaginal cuff. At this time the anterior defect and posterior defect were identified. The apex lie above the sacrospinous ligament and the ligament fixation was aborted. The Steiner catheter was removed by draining the balloon and the cystoscope was inserted through the urethra under direct visualization into the bladder. There were no foreign objects within the urinary bladder and no evidence of laceration. The ureteral orifices were identified and each 1 was in turn gently intubated with a 5 Bulgarian whistle-tip catheter that advanced easily to 20 cm without evidence of obstruction or injury. The cystoscope was then removed and the Steiner catheter was reinserted to straight drain and the balloon was filled with 10 cc. The anterior vaginal wall was then isolated and injected submucosally with vasopressin. A midline incision was made. Sharp and blunt dissection was performed bilaterally into this pubic cervical fascia was identified. On the left side this was sooner than on the right side giving an asymmetric tear. These tissues were brought together in a 2 layer closure with 2-0 Vicryl. The anterior vaginal wall was then closed with running interlocking 2-0 Vicryl. Attention was then turned towards the mid urethra where it was isolated and injected submucosally. A midline incision was made. Using sharp and blunt dissection, paths for insertion of the Altis mid urethral sling were developed with care being taken to avoid entry into the urethra or the vaginal mucosa. The trocars were utilized for placement of the mesh. It lay against the urethra in good position. The tensioning suture was then cut and the midline incision was closed with running interlocking 2-0 Vicryl. The Steiner catheter was removed by draining the balloon and the cystoscope was inserted through the urethra under direct visualization into the bladder. There was no evidence of mesh or foreign object within the urethra. There were no foreign objects within the urinary bladder and no evidence of laceration. The ureteral orifices were identified and each 1 was in turn gently intubated with a 5 Bulgarian whistle-tip catheter that advanced easily to 20 cm without evidence of obstruction or injury.Posteriorly the defect was proximal to the perineal body and was not involving the perineal body. The defect was isolated and once again the submucosa was injected with vasopressin and a midline incision was made. Sharp and blunt dissection was performed until the rectovaginal fascia was identified bilaterally. This was brought together in 2 layer closure with interrupted 2-0 Vicryl. The midline incision was closed using running interlocking 2-0 Vicryl. At this time the counts were correct and the vagina was packed with estrogen cream and vaginal packing. She was awakened and taken to the recovery room in good condition. There were no complications during this procedure. Surgical Findings: No apical defect, more scar tissue on the patient's left side with asymmetric location of the pubocervical fascia Complications Complications: No Admit VTE Documentation VTE Present on Admission: Yes VTE Mechan Device Prophylaxis: SCD's VTE Pharm Prophylaxis ordered?: Yes
[2025-05-25] MEDS: dexMEDEtomidine 200 MCG/2 ML ML 24 MCG IV (08:53)
[2025-05-25] MEDS: fentaNYL 100 MCG/2 ML Ampul 200 MCG IV (08:54)
--- NOTE | 2025-05-25 09:20 | PCM.OPRPT ---
Multi Select Codes Urinary/Genital Urinary/Genital CPT Codes: 23220 TVH+BS/O <250gr uterus Operative Report (Standard) Operative Information Date of Procedure: 05/25/25 Pre-Operative Diagnosis: see problem list details Post-Operative Diagnosis: same Surgery/Procedure Performed: total vaginal hysterectomy bilateral salpingectomy production intern: Yes Monogram And Letter Paster: Jules Lauren Tasks completed by certified surgical tech/first assistant: Opening & closing and Retracting Type of Anesthesia: General RN Documented Start/Stop Times: Operation Date: 05/25/25 07:30 Case Time Into Pre-Op 05/25/25 05:43 Out of Pre-Op 05/25/25 05:43 Anesthesia Start 05/25/25 07:30 Into Room 05/25/25 07:30 Procedure Start 05/25/25 08:00 Procedure Start Time: 08:00 Procedure Stop Time: 09:17 Select all DRAINS/GRAFTS/IMPLANTS that apply: Drains Drain details: devine Estimated Blood Loss: 250 Specimen collected: Yes Description of specimen(s) removed: uterus tubes Description of surgery: Patient was taken to the operating room and was placed under general anesthesia was prepped and draped in normal sterile fashion in the dorsal lithotomy position. Preoperative antibiotics and SCDs and Devine catheter was placed inside the bladder. Weighted speculum was placed in the vagina and the anterior and posterior lip of the cervix was grasped with 2 Du clamps and circumferentially injected with dilute vasopressin. A circumferential incision was made with a scalpel and the posterior cul-de-sac was entered into sharply and a longneck speculum was placed. The anterior cul-de-sac was also dissected down and entered into sharply and the uterosacral ligaments were clamped cut and suture ligated bilaterally followed by the cardinal ligaments which were Clamped cut and suture ligated bilaterally with 0 Monocryl. The uterus serially descended and progressive bites were taken bilaterally up to the level of the utero-ovarian ligament bilaterally which was clamped transected and double ligated with 0 Monocryl suture and 0 Vicryl free tie. Bilateral fallopian tubes and ovaries were well visualized and noted be within normal limits and the bilateral fallopian tubes were transected across the base with a Sofya clamp and removed and sutured with 0 Vicryl suture. Excellent hemostasis was noted. The vagina was closed with [id number] 0 Vicryl pop offs including the posterior and anterior peritoneum in the reapproximation. Excellent hemostasis was noted. All instruments removed from the vagina clear urine was noted at the end of the procedure and then Dr. Ceballos began her portion of the procedure. Surgical Findings: prolapse, nl uterus tubes, and ovaries. Complications Complications: No
--- NOTE | 2025-05-25 09:23 | DCINST_ITS ---
Discharge Instructions DC O2, CPAP, BIPAP needs Home O2 Discharge instructions: No Dressing / Incision Discharge Activity: Return to Normal Activity, May Not Drive (while taking narcotic pain medications.) and May Shower May resume sexual activity in: 8 weeks Additional Activity Instructions:: No swimming, hot tubs, tub bathing, intercourse, strenuous activity or exercise, no dog walking Dressing / Incision Call your doctor if your incision/area has: Continuous Slow Oozing, Sudden Increased Bleeding, Increased Pain/ Swelling, Increased Redness and Foul Smelling Discharge Call your doctor if you observe: Fever of 101 or Higher, Inability to urinate and Inability to have a bowel movement Follow Up Care Please Follow Up With: Latasha Ceballos MD Test Results: Test results from this visit will be discussed in further detail at your follow- up appointment, if applicable. Discharge Plan Admission Admit Date/Time: 05/25/25 07:52 Attending Provider: India Silverman Primary Care Provider: Luke Navarro Consulting Providers: Latasha Ceballos Discharge Orders/Prescriptions Prescriptions: New oxycodone-acetaminophen 5-325 mg tablet 1 tab PO Q8H PRN (Reason: pain) 3 Days Qty: 10 0RF cephalexin 500 mg capsule 500 mg PO Q12 3 Days Qty: 6 0RF ondansetron 4 mg tablet,disintegrating 4 mg PO Q8H PRN (Reason: nausea and vomiting) Qty: 10 0RF Continued ascorbate calcium (vitamin C) 500 mg tablet 500 mg PO DAILY pravastatin 40 mg tablet 40 mg PO DAILY amlodipine [Norvasc] 10 mg tablet 10 mg PO DAILY cholecalciferol (vitamin D3) 125 mcg (5,000 unit) capsule 125 mcg PO DAILY hydrochlorothiazide 12.5 mg tablet 25 mg PO DAILY levothyroxine 25 mcg capsule 50 mcg PO DAILY estradiol 0.01 % (0.1 mg/gram) cream See Rx Instructions VAGINAL .COMPLEX Qty: 42.5 2RF Rx Instructions: small amount as directed vaginal three times a week; calcium carbonate [Calcium 600] 600 mg calcium (1,500 mg) tablet 600 mg PO QDAY coenzyme Q10 [Co Q-10] 10 mg capsule 10 mg PO QDAY Vitamin E 180 mg PO DAILY folate 800 mcg PO DAILY Other Ambulatory Orders: 12 Lead EKG (Routine) Timeframe: 20250521 Location: None Selected Ordered By: Dr. India Silverman Referrals / Follow Up: Luke Navarro MD [Primary Care Provider, Family Practice]
[2025-05-25] MEDS: Estrogens,Conj. 1 Tube 1 DOSE (09:56)
--- NOTE | 2025-05-25 10:48 | PCM.POST.ANE ---
Anesthesia: Postop Eval I Current Vital Signs Temperature: 97 F Pulse Rate: 67 Blood Pressure: 95/57 Respiratory Rate: 18 Pulse Ox: 98 Oxygen Delivery Method: Nasal Cannula Oxygen Flow Rate (L/min): 4 Assessment Airway patent: Yes Spontaneous unlabored respirations: Yes Mental status: Awake and Calm nausea: Yes Vomiting: Yes Anesthesia Complication: No Fluid Hydration Crystalloid volume administer (ml): 1,500 Total IV fluid infused: 1,500 Progress Note Anesthesia document: Postop Eval 1 completed: Yes
--- NOTE | 2025-05-25 11:07 | POSTOPAN2_ITS ---
Anesthesia Postop Eval I Sum Postop Eval Completion status Anesthesia document: Postop Eval 1 completed: Yes Anesthesia Postop Eval I Summary Anesthesia Postop Eval I Summary: Anesthesia Postop Eval I: Assessment Summary Airway patent Yes 05/25/25 10:49 SKI LIFT MECHANIC.MDOT Spontaneous unlabored Yes 05/25/25 10:49 SKI LIFT MECHANIC.MDOT respirations Mental status Awake,Calm 05/25/25 10:49 SKI LIFT MECHANIC.MDOT nausea Yes 05/25/25 10:49 SKI LIFT MECHANIC.MDOT Vomiting Yes 05/25/25 10:49 SKI LIFT MECHANIC.MDOT Anesthesia Postop Eval I: Fluid Summary Crystalloid volume administer 1,500 05/25/25 10:49 SKI LIFT MECHANIC.MDOT (ml) Colloids volume administered ( ml) Blood Product volume administered (ml) Total IV fluid infused 1,500 05/25/25 10:49 SKI LIFT MECHANIC.MDOT Anesthesia Postop Eval I: Summary Notes Anesthesia Complication No 05/25/25 10:49 SKI LIFT MECHANIC.MDOT Anesthesia Complication Comment: Post-operative progress note Anesthesia: Postop Eval II Evaluation Mental status: Awake Pain Level: 0 nausea: No Vomiting: No
--- NOTE | 2025-05-25 11:07 | PCM.POSTANE2 ---
Anesthesia Postop Eval I Sum Postop Eval Completion status Anesthesia document: Postop Eval 1 completed: Yes Anesthesia Postop Eval I Summary Anesthesia Postop Eval I Summary: Anesthesia Postop Eval I: Assessment Summary Airway patent Yes 05/25/25 10:49 [email or web address] [email or web address] Spontaneous unlabored Yes 05/25/25 10:49 JOB [email or web address] respirations Mental status Awake,Calm 05/25/25 10:49 [email or web address] [email or web address] nausea Yes 05/25/25 10:49 JOB [email or web address] Vomiting Yes 05/25/25 10:49 JOB [email or web address] Anesthesia Postop Eval I: Fluid Summary Crystalloid volume administer 1,500 05/25/25 10:49 JOB [email or web address].MDOT (ml) Colloids volume administered ( ml) Blood Product volume administered (ml) Total IV fluid infused 1,500 05/25/25 10:49 JOB [email or web address] Anesthesia Postop Eval I: Summary Notes Anesthesia Complication No 05/25/25 10:49 JOB [email or web address] Anesthesia Complication Comment: Post-operative progress note Anesthesia: Postop Eval II Evaluation Mental status: Awake Pain Level: 0 nausea: No Vomiting: No
[2025-05-25] MEDS: Lactated Ringers 1,000 ML 70 ML IV (15:59)
[2025-05-25] MEDS: Glycerin/Hypromellose/PEG400 15 ml Bottle 2 DRP LEFT EYE (16:20)
[2025-05-26 03:49] VITALS: BP 122/69; PULSE 67; RESP 17; TEMP 37; O2SAT 93
[2025-05-26 05:26] LABS: Hematocrit 31.8 % (37-47); Hemoglobin 10.5 g/dL (12.0-15.0); Mean Corp Hgb Conc 33.0 g/dL (32-36); Mean Corpuscular Volume 90.6 fL (81-99); Mean Platelet Vol. 10.2 fl (6.2-12.0); Platelet Count 281 K/mm3 (150-450); RBC Distribution Width CV 13.6 % (11.6-14.6); RBC Distribution Width SD 45.4 fl (35.1-43.9); Red Blood Count 3.51 M/mm3 (4.2-5.4); White Blood Count 15.9 K/mm3 (4.4-11.0)
[2025-05-26 05:55] LABS: Anion Gap 8 (5-15); BUN 14 mg/dL (4-19); BUN/Creat Ratio 19.2 RATIO (10-20); Calcium,Total 8.6 mg/dL (7.6-11.0); Carbon Dioxide 26.8 mmol/L (21.0-32.0); Chloride 97 mmol/L (98-108); Estimated Creatinine Clearance 56.83 ml/min (50-250); Glucose 103 mg/dL (70-99); Potassium 3.4 mmol/L (3.3-5.1)
[2025-05-26] MEDS: Lactated Ringers 1,000 ML 70 ML IV (06:15)
--- NOTE | 2025-05-26 06:42 | PCM.PN.OB ---
Subjective Subjective Patient doing well without complaints. Tolerating PO. Denies chest pain, shortness of breath, calf pain/swelling, fevers, chills, lightheadedness. pain controlled. Hg drop greater than expected this am- will get stat imaging Objective Data Objective Data Vital Signs: Vital Signs Temp Pulse Resp BP Pulse Ox O2 Del Method O2 Flow Rate 98.6 F 67 17 122/69 H 93 Nasal Cannula 2 05/26/25 03:49 05/26/25 03:49 05/26/25 03:49 05/26/25 03:49 05/26/25 03:49 05/26/25 03:49 05/26/25 03:49 Oxygen Flow Rate (L/min) 2 Oxygen Delivery Method Nasal Cannula Weight: 158 lb 11.725 oz Body Mass Index (BMI) 29.9 Intake & Output: Intake and Output for Last 24 Hours 05/24/25 05/25/25 05/26/25 23:59 23:59 23:59 Intake Total 1652 / 2132 2978.67 / 2978.67 Output Total 1625 / 2450 1375 / 1375 Balance 27 / -318 1603.67 / 1603.67 Lab / Micro Data 05/26/25 07:44 05/26/25 04:59 Labs: Laboratory Results - last 24 hr 05/25/25 06:15: POC Glucose 97 05/26/25 04:59: WBC 15.9 H, RBC 3.51 L, Hgb 10.5 L, Hct 31.8 L, MCV 90.6, MCH 29.9, MCHC 33.0, RDW Std Deviation 45.4 H, RDW Coeff of Jevon 13.6, Plt Count 281, MPV 10.2, Sodium 132 L, Potassium 3.4, Chloride 97 L, Carbon Dioxide 26.8, Anion Gap 8, BUN 14, Creatinine 0.71, Estim Creat Clear Calc 56.83, Est GFR (MDRD) Non-Af 90, BUN/Creatinine Ratio 19.2, Glucose 103 H, Calcium 8.6 ROS Constitutional Constitutional: Reports systems reviewed and no addt'l complaints, except as documented Cardiovascular Cardiovascular: Reports systems reviewed and no addt'l complaints, except as documented Respiratory/Chest Respiratory/Chest: Reports systems reviewed and no addt'l complaints, except as documented Gastrointestinal Gastrointestinal: Reports systems reviewed and no addt'l complaints, except as documented Physical Exam Const alert, oriented x3 and no apparent distress HEENT Head and Scalp: atraumatic Resp normal respiratory effort GI soft to palpation and non-tender Assessment & Plan (1) History of total vaginal hysterectomy (TVH): COMMENT: tvh bs SM prolapse franklin rothman (2) Postoperative anemia: PLAN: Plan stat CT negative and repeat Hg stable. patient is s/p tvh pelvic floor repair POD 1 1. routine ERAS protocol postop care- increase ambulation, encourage oral intake and oral control of pain. lovenox and scds for dvt prophylaxis, patient stable for discharge to home.
--- NOTE | 2025-05-26 07:00 | CT_ITS ---
PROCEDURE: CTA ABD/PELVIS W/WO CONTRAST 05/26/2025 REASON FOR EXAM: ANEMIA, HYSTERECTOMY YESTERDAY TECHNIQUE: Procedure Code: [id number] Modality: CT Procedure: CTA ABD/PELVIS W/WO CONTRAST Multiplanar Sagittal and Coronal images were obtained. CONTRAST: Isovue 370 VOLUME: 100 mL One or more dose reduction techniques were used (e.g., Automated exposure control, adjustment of the mA and/or kV according to patient size, use of iterative reconstruction technique). RADIATION DOSE SUMMARY: CTDlvol: 28.50 mGy DLP: 1549.05 mGycm COMPARISON: None FINDINGS: The lung bases are grossly clear. Visualized heart is unremarkable. The liver and gallbladder are unremarkable. The pancreas is somewhat atrophic. The spleen is grossly unremarkable. The adrenal glands and kidneys are unremarkable aside from a lower pole renal cyst on the right.. A few sigmoid colon diverticula are present. No evidence of bowel obstruction. The appendix is seen and is normal. There is a Steiner catheter in the urinary bladder. There is some gas noted in the urinary bladder, likely iatrogenic. There is a very small amount of fluid noted in the pelvis. There are numerous wires noted in the region of the vagina. This may be postsurgical. The uterus is surgically absent. There is no free air. Osseous structures are grossly unremarkable. Regarding the vasculature, mild atherosclerotic aortoiliac calcifications are present. The visualized femoral vessels are unremarkable. The celiac axis and SMA are patent. The renal arteries are patent bilaterally. The WILL is patent. There is no evidence of significant vascular abnormality in the pelvis. CT/CTA Abd/Pelvis W/WO Contrast IMPRESSION: Postsurgical changes as above. No significant vascular abnormality or evidence of active hemorrhage. If concern persists, consider short-term follow-up CT. Please see above for additional details. Reading [facility]
[2025-05-26 07:05] VITALS: O2SAT 97
[2025-05-26 07:54] LABS: Hematocrit 31.4 % (37-47); Hemoglobin 10.7 g/dL (12.0-15.0); Immature Granulocytes Count 0.070 X10^3/uL (0.0-0.0); Mean Corp Hgb Conc 34.1 g/dL (32-36); Mean Corpuscular Volume 91.8 fL (81-99); Mean Platelet Vol. 10.0 fl (6.2-12.0); NRBC Flagged by Analyzer 0 % (0-5); Platelet Count 274 K/mm3 (150-450); RBC Distribution Width CV 13.6 % (11.6-14.6); RBC Distribution Width SD 46.0 fl (35.1-43.9); Red Blood Count 3.42 M/mm3 (4.2-5.4); White Blood Count 15.0 K/mm3 (4.4-11.0)
[2025-05-26 08:00] VITALS: BP 120/60; PULSE 64; RESP 16; TEMP 37.1; O2SAT 98
[2025-05-26 09:04] VITALS: BP 118/55; PULSE 62; RESP 18; TEMP 37.1; O2SAT 97
--- NOTE | 2025-05-26 09:50 | CASEMGMT ---
RN?CM?ASSESSMENT ? RN?CM?to room to meet with patient for initial transition planning/care coordination?assessment.?RN?CM?introduced self and role at [facility].? Pt voices understanding and consents to?assessment?at this time.? Pt sitting on edge of bed in no distress at this time.? Pt is A/O at this time and answers all questions appropriately.?? Care providers, pharmacy, and demographics verified/updated at this time. ? Strata: 1 PCP: Dr Navarro Specialists: Dr Ceballos-urology, Dr Silverman-BARREL FILLER [facility]erred [facility]: [facility] Insurance: dough Prescription Benefit:?yes LNOK: , Alber. Daughter. Son. Living Arrangements: Lives w/ and adult son in split-level home w/no steps to enter. Denies difficulty w/stairs in the home. Independent w/ADL's and IADL's. Son does assist w/getting groceries. Transportation:?Pt states drives self and states no transportation concerns at this time.? does not drive d/t hx of stroke. Daughter or grand-daughter will take pt home @ dc. DME: ? Denies using any DME and denies needs.? HHC/SNF: No hx. 6 cl: 18. Pt denies need for HHC or OP therapy. ? Pt wishes to return home and states has no concerns with going home at time of discharge. ? PLAN:??Home ? Khang BSN?RN?CM
--- NOTE | 2025-05-26 10:04 | PCM.PN.GU ---
Subjective Subjective Feeling well, no nausea or vomiting. Pain is controlled. She reports some lower abdominal discomfort. Catheter and packing are still in place. Objective Data Objective Data Vital Signs: Vital Signs Temp Pulse Resp BP Pulse Ox O2 Del Method O2 Flow Rate 98.7 F 62 18 118/55 L 97 Nasal Cannula 2 05/26/25 09:04 05/26/25 09:04 05/26/25 09:04 05/26/25 09:04 05/26/25 09:04 05/26/25 03:49 05/26/25 03:49 Oxygen Flow Rate (L/min) 2 Oxygen Delivery Method Nasal Cannula Weight: 158 lb 11.725 oz Body Mass Index (BMI) 29.9 Intake & Output: Intake and Output for Last 24 Hours 05/24/25 05/25/25 05/26/25 23:59 23:59 23:59 Intake Total 1652 / 2132 2978.67 / 2978.67 Output Total 1625 / 2450 1375 / 1375 Balance 27 / -318 1603.67 / 1603.67 Lab / Micro Data Attestation: I reviewed the patient's lab results. 05/26/25 07:44 05/26/25 04:59 Labs: Laboratory Results - last 24 hr 05/25/25 06:15: POC Glucose 97 05/26/25 04:59: WBC 15.9 H, RBC 3.51 L, Hgb 10.5 L, Hct 31.8 L, MCV 90.6, MCH 29.9, MCHC 33.0, RDW Std Deviation 45.4 H, RDW Coeff of Jevon 13.6, Plt Count 281, MPV 10.2, Sodium 132 L, Potassium 3.4, Chloride 97 L, Carbon Dioxide 26.8, Anion Gap 8, BUN 14, Creatinine 0.71, Estim Creat Clear Calc 56.83, Est GFR (MDRD) Non-Af 90, BUN/Creatinine Ratio 19.2, Glucose 103 H, Calcium 8.6 05/26/25 07:44: WBC 15.0 H, RBC 3.42 L, Hgb 10.7 L, Hct 31.4 L, MCV 91.8, MCH 31.3, MCHC 34.1, RDW Std Deviation 46.0 H, RDW Coeff of Jevon 13.6, Plt Count 274, MPV 10.0, Immature Gran % (Auto) 0.500, Neut % (Auto) 77.4 H, Lymph % (Auto) 13.8 L, Sutter % (Auto) 8.0, Eos % (Auto) 0.1, Baso % (Auto) 0.2, Absolute Neuts (auto) 11.7 H, Absolute Lymphs (auto) 2.07, Nucleated RBC % 0 Radiography Diagnostic Testing: Radiology Impression Abdomen/Pelvis CTA 05/26/25 07:00 IMPRESSION: Postsurgical changes as above. No significant vascular abnormality or evidence of active hemorrhage. If concern persists, consider short-term follow-up CT. Please see above for additional details. Reading Location: [facility] Physical Exam Const alert, oriented x3 and no apparent distress Resp normal respiratory effort Effort and Inspection: able to speak in complete sentences and symmetric chest movement Cardio regular rate GI soft to palpation, non-tender and non-distended external exam normal Narrative: Vaginal packing and Steiner catheter removed without incident Extremity Extremity Narrative: SCDs in place Skin no rashes or lesions noted, no jaundice, no petechiae and no mottling Neuro oriented x3 and CN's II-XII intact bilaterally Psych mental status grossly normal and thought process normal Assessment & Plan Assessment/Plan (1) Cystocele with incomplete uterovaginal prolapse: (2) Stress incontinence: (3) Constipation: (4) Nocturia: PLAN: Plan Supportive care Postop restrictions Trial of void today Plan for home later today either with or without Steiner catheter
[2025-05-26 14:46] VITALS: BP 117/60; PULSE 59; RESP 18; TEMP 36.8; O2SAT 96
[2025-05-26 18:49] VITALS: BP 122/66; PULSE 64; RESP 18; TEMP 36.8; O2SAT 95
== END 2025-05-26 18:50 | disposition home or self-care (01) | DRG 743 ==
LOC: SDC 09:03 → MS3 09:03
PROVIDERS: Anesthesiology; Urology; Admitting Provider Obstetrics & Gynecology; PCP Family Medicine; Referring Provider Obstetrics & Gynecology; Visit Provider Obstetrics & Gynecology
PROC: 0UT97ZZ Resection of Uterus, Via Natural or Artificial Opening (ICD-10-PCS; CPT 58260; principal; 2025-05-25 07:10)
PROC: (CPT 57260; 2025-05-25 07:10)
DX: N81.2 Incomplete uterovaginal prolapse (principal); D64.89 Other specified anemias; E03.9 Hypothyroidism, unspecified; I10 Essential (primary) hypertension; E78.5 Hyperlipidemia, unspecified; K59.00 Constipation, unspecified; E55.9 Vitamin D deficiency, unspecified; M17.0 Bilateral primary osteoarthritis of knee; N83.8 Other noninflammatory disorders of ovary, fallopian tube and broad ligament; N39.3 Stress incontinence (female) (male); N84.0 Polyp of corpus uteri; N72 Inflammatory disease of cervix uteri; N36.2 Urethral caruncle; R35.1 Nocturia; N95.2 Postmenopausal atrophic vaginitis; M85.80 Other specified disorders of bone density and structure, unspecified site; Z79.890 Hormone replacement therapy; Z79.899 Other long term (current) drug therapy; Z87.891 Personal history of nicotine dependence
CPT/HCPCS: 36415; 74174; 80048; 80053; 82962; 83735; 84443; 85025; 85027; 86850; 86900; 86901; 88307; 93005; 94668; C1771; Q9967; A4216; C1758; J0525; J2405; J3475